=== PATIENT | male | born 1965 | race Caucasian/White ===

== ENCOUNTER 2019-01-22 10:28 | Emergency (ER) | payer BC ==
[2019-01-22] MEDS ORDERED: Lidocaine 1%* 5 ML VIAL ONE (11:05)
--- NOTE | 2019-01-22 11:10 | ED ---
Lower Extremity - HPI Summary HPI Summary: This patient is a 53 year old M presenting to ED with a chief complaint of right knee pain with redness and swelling since a couple weeks ago. Patient describes the pain as increasing this weekend as well as at work yesterday. Patient rates the pain 8/10 in severity. He has lesions on his knee but denies fever. Patient saw PCP today and was subsequently sent to ED for further evaluation. Three years ago, patient was seen at [facility] and later evaluated by Dr. Li who recommended a knee replacement when he turned a little older. PMHx of HTN, arthrosis, and osteoarthritis. He has had surgery for bone spurs in both shoulders and a torn meniscus in the right knee. He smokes but does not use alcohol or drugs. - History of Current Complaint Chief Complaint: EDExtremityLower Stated Complaint: RIGHT KNEE SWOLLEN PER PT/DR OFFICED CALLED Time Seen by Provider: 01/22/19 10:42 Hx Obtained From: Patient Mechanism Of Injury: Other - no CECILIA Onset of Pain: Prior to Arrival - a couple of weeks Onset/Duration: Still Present Severity Initially: Severe Severity Currently: Severe Pain Intensity: 8 Pain Scale Used: 0-10 Numeric Timing: Lasting Weeks Location: Is Discrete @ - right knee Associated Signs And Symptoms: Positive: Swelling, Redness, Knee Pain. Negative : Fever Aggravating Factor(s): Ambulation Alleviating Factor(s): Nothing - Allergies/Home Medications Allergies/Adverse Reactions: Allergies Allergy/AdvReac Type Severity Reaction Status Date / Time No Known Allergies Allergy Verified 01/22/19 10:32 Home Medications: Home Medications Albuterol HFA INHALER* [Ventolin HFA Inhaler*] 2 puff INH Q4H PRN 01/22/19 [ History Confirmed 01/22/19] Clobetasol 0.05% OINT* 1 applic TOPICAL BID 01/22/19 [History Confirmed 01/22/19 ] Fluticasone/Salmeterol [Fluticasone-Salmeterol 232-14] 1 puff INH BID 01/22/19 [ History Confirmed 01/22/19] Urea 40 % TOPICAL BID 01/22/19 [History Confirmed 01/22/19] PMH/Surg Hx/FS Hx/Imm Hx Cardiovascular History: Reports: Hx Hypertension Sensory History: Denies: Hx Legally Blind, Hx Deafness Opthamlomology History: Denies: Hx Legally Blind EENT History: Denies: Hx Deafness - Surgical History Surgery Procedure, Year, and Place: surgery for bone spurs in both shoulders and a torn meniscus in the right knee Infectious Disease History: No Infectious Disease History: Denies: Traveled Outside the [place] in Last 30 Days - Family History Known Family History: Positive: Cardiac Disease - ID, Diabetes, Other - FMHx of cancer and arthritis - Social History Alcohol Use: None Hx Substance Use: No Hx Tobacco Use: Yes Review of Systems Negative: Fever Positive: Decreased ROM - Right knee, Edema - right knee , Other - Right knee pain Skin: Other - POSITIVE - REDNESS OF RIGHT KNEE All Other Systems Reviewed And Are Negative: Yes Physical Exam - Summary Physical Exam Summary: VITAL SIGNS: Reviewed. GENERAL: Patient is a well-developed and nourished male who is lying comfortable in the stretcher. Patient is not in any acute respiratory distress. HEAD AND FACE: No signs of trauma. No ecchymosis, hematomas or skull depressions. No sinus tenderness. EYES: PERRLA, EOMI x 2, No injected conjunctiva, no nystagmus. EARS: Hearing grossly intact. Ear canals and tympanic membranes are within normal limits. MOUTH: Oropharynx within normal limits. NECK: Supple, trachea is midline, no adenopathy, no JVD, no carotid bruit, no c- spine tenderness, neck with full ROM. CHEST: Symmetric, no tenderness at palpation LUNGS: Clear to auscultation bilaterally. No wheezing or crackles. CVS: Regular rate and rhythm, S1 and S2 present, no murmurs or gallops appreciated. ABDOMEN: Soft, non-tender. No signs of distention. No rebound no guarding, and no masses palpated. Bowel sounds are normal. EXTREMITIES: Right knee swollen, red, increased in temperature, decreased ROM secondary to pain. FROM in all other joints, no edema, no cyanosis or clubbing. NEURO: Alert and oriented x 3. No acute neurological deficits. Speech is normal and follows commands. SKIN: Dry and warm Triage Information Reviewed: Yes Vital Signs On Initial Exam: Initial Vitals Temp Pulse Resp BP Pulse Ox 98.3 F 90 17 138/110 98 01/22/19 10:30 01/22/19 10:30 04/30/19 10:30 01/22/19 10:30 01/22/19 10:30 Vital Signs Reviewed: Yes Procedures - Procedure Summary Procedure Summary: Arthrocentesis attempted at 1055, however no fluid returned. It was a dry tap. Used sterile technique, cleaned with iodine three times. US showed minimal amount of fluid. - Ultrasound No standard instances Ultrasound: normal - 1055, no fluid in right knee. Diagnostics - Vital Signs Vital Signs Temp Pulse Resp BP Pulse Ox 01/22/19 10:30 98.3 F 90 17 138/110 98 - Laboratory Result Diagrams: 01/22/19 11:05 01/22/19 12:19 Lab Statement: Any lab studies that have been ordered have been reviewed, and results considered in the medical decision making process. - Radiology Right Knee XR Radiology Interpretation Completed By: Radiologist Summary of Radiographic Findings: 1. ANTERIOR SOFT TISSUE SWELLING. 2. MILD TO MODERATE OSTEOARTHRITIC CHANGE. Dr. Hernandes has reviewed this radiology report. - Ultrasound No standard instances Ultrasound Interpretation Completed By: ED Physician Summary of Ultrasound Findings: Bedside US done by ED physician revealed minimal fluid in right knee. Re-Evaluation - Re-Evaluation First Eval Re-Evaluation Time: 10:55 Comment: Attempted an arthrocentesis at 1055, however no fluid returned. It was a dry tap. Second Eval Re-Evaluation Time: 13:09 Comment: Results discussed with patient. Patient will be discharged with plan to follow up with Dr. Li tomorrow. Patient understands and agrees with this plan. Lower Extremity Course/Dx - Course Assessment/Plan: This patient is a 53-year-old male who presents to the emergency department with chief complaining of right knee pain. The patient reports that he has history of osteoarthritis secondary to overuse. The patient has seen Dr. Li in the past. Today he reports that the pain is painful, swollen, with some erythema. Blood test results shows wbcs of 7.2, hemoglobin 14.5, hematocrit 42, it is 238. Lactic acid is 0.8 and uric acid is 5 and CRP is 20.41. X-ray of the knee impression: anterior soft tissue swelling. Mild to moderate osteoarthritic change. Using the ultrasound vital located applicator of fluids for arthrocentesis however there was and minimal amount of fluid to follow-up with ultrasound. I attempted to tap the small pocket that I found however there was a dry tap. Meantime we sent blood cultures and I gave the patient Zosyn 3.375 g. I believe that most of his symptoms have cellulitis of the knee more than a septic knee. The bowel sounds are stable and he does not have any fever. I discussed the case with Dr. Li and she agrees with management and recommends antibiotics and discharged home and Dr. Li will see the patient tomorrow morning in the office. I discussed my physical exam and findings with the patient as well as the plan and the patient agrees. The patient also was given Toradol for the pain. He will be discharged with a prescription for Keflex and Percocet for pain. - Diagnoses Differential Diagnosis/HQI/PQRI: Positive: Arthritis, Bursitis, Cellulitis, Infection, Sprain, Strain, Tendonitis Provider Diagnoses: Cellulitis of knee, right - Physician Notifications Discussed Care Of Patient With: Kindra Li Time Discussed With Above Provider: 12:10 Instructed by Provider To: Other - Dr. Li to evaluate tomorrow morning, Instructed to put on P/O antibiotics. Discharge - Sign-Out/Discharge Documenting (check all that apply): Patient Departure - Discharge Patient Received Moderate/Deep Sedation with Procedure: No - Discharge Plan Condition: Stable Disposition: HOME Prescriptions: Cephalexin CAP* [Keflex CAP*] 500 mg PO QID #40 cap oxyCODONE/Acetam5/325MG PREPAK [Percocet 5/325 TAB*] 0 tab PO Q6H PRN #12 tab MDD 4 PRN Reason: Pain Patient Education Materials: Cellulitis (ED) Referrals: Petros White [employer] [Primary Care Provider] - 3 Days Kindra Li MD [Medical Doctor] - 1 Day Additional Instructions: Follow up with your primary care provider in 3 days. Follow up with Dr. Li in 1 day. RETURN TO THE ER FOR WORSENING OR CHANGING SYMPTOMS. - Billing Disposition and Condition Condition: STABLE Disposition: Home - Attestation Statements Document Initiated by Scribe: Yes Documenting Scribe: Calvin Hawkins Provider For Whom Scribe is Documenting (Include Credential): Javi Hernandes MD Scribe Attestation: I, Calvin Skaggs and Dm Hawkins, scribed for Javi Hernandes MD on 01/22/19 at 2154. Scribe Documentation Reviewed: Yes Provider Attestation: The documentation as recorded by the scribe, Calvin Skaggs and Dm Hawkins accurately reflects the service I personally performed and the decisions made by me, Javi Hernandes MD Status of Scribe Document: Viewed
[2019-01-22 11:13] LABS: ABS Basophils 0 10^3/ul (0-0.2); ABS Eosinophils 0.3 10^3/ul (0-0.6); ABS Lymphocytes 1.1 10^3/ul (1.0-4.8); ABS Monocytes 0.6 10^3/ul (0-0.8); ABS Neutrophils 5.1 10^3/ul (1.5-7.7); ABS Nucleated RBC 0 10^3/ul; Eosinophil % 3.9 %; Hematocrit 42 % (36-46); Hemoglobin 14.5 g/dL (14.0-18.0); Lymphocyte % 15.6 %; Mean Corpuscular HGB Conc 35 g/dL (31-36); Mean Corpuscular Hemoglobin 31 pg (27-31); Mean Corpuscular Volume 89 fL (80-94); Mean Platelet Volume 6.6 fL (7.4-10.4); Nucleated Red Blood Cells % 0.1; Platelet Count 238 10^3/uL (150-450); Red Cell Distribution Width 14 % (10.5-15); White Blood Count 7.2 10^3/uL (3.5-10.8)
[2019-01-22 11:32] LABS: C Reactive Protein 28.41 mg/L (<8.01)
--- OUTSIDE RECORDS SUMMARY | 2019-01-22 12:04 | XMS REPORT | Continuity of Care Document ---
:1965 External Reference #:[id number] Author Name Janet Rizvi NP Address [address] [place] [address] Care Team Providers Name Role Phone LUISITO Corey Care Team Information Sales Solutions Associate Unavailable Payers Date Identification Numbers Payment Provider Subscriber Effective: Policy Number: [id number] [facility] Vinicio Wolfe 2009 Expires: 2010 Group Name: [employer] [place] [address] [address] PayID: [id number] MIGUEL Viramontes [id number] Effective: 2010 Policy Number: [id number] [facility] Vinicio Wolfe Expires: 2014 Group Name: [employer] [address] [address] PayID: [id number] MIGUEL Viramontes [id number] Effective: 2014 Policy Number: [id number] [facility] Vinicio Wolfe Expires: 2018 Group Name: [employer] [address] [address] PayID: [id number] MIGUEL Viramontes [id number] Effective: 2018 Policy Number: [id number] [facility] Vinicio Wolfe Group Name: [employer] [address] [address] PayID: [id number] MIGUEL Viramontes [id number] Advance Directives Description No Information Available Problems Active Problems Provider Date Atopic dermatitis Tyrell Sweet M.D. Onset: 01/25/2011 Bipolar I disorder Tyrell Sweet M.D. Onset: 01/25/2011 Tobacco user Tyrell Sweet M.D. Onset: 01/25/2011 Essential hypertension Tyrell Sweet M.D. Onset: 01/25/2011 Family History Date Family Member(s) Observation Comments Father Cancer, Prostate prostatectomy 2 years ago Father Hypertension Mother due to Cancer, Colon () - Age 45 Mother Ulcers stomach First Sister Depression Paternal Grandfather due to Auto Accident () Paternal Grandmother Diabetes Paternal Grandmother Alzheimer's Disease Paternal Grandmother CAD Maternal Grandfather due to Unknown () - in his Causes 70s Maternal Grandmother due to Unknown () - in her Causes 50s Social History Type Date Description Comments Sex Unknown Lives With Daughter Diet Healthy, Well Balanced sometimes an sinhala muffin for breakfast, no lunch, dinner is whatever he prepares, pork chops, vegetables, spaghetti, hot dogs, pizza. 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 used for migraine treatment Colchicine take 2 tablets by 16tabs M25.561 Janet Rizvi, 01/22/2019 0.6mg mouth today, then [facility] Tablets 1 tablet by mouth twice daily x 7 days. Fluticasone inhale 1 puff by 3units R05 Petros R. 12/31/2018 Propionate/Salmeterol mouth 2 times per Storm, [employer] [employer] day for breathing 232-14mcg/Act Aerosol Clobetasol Propionate apply small 60gm L30.9 Shawnti R. 12/27/2018 amount to both Storm, [employer] 0.05% Ointment hands twice daily Shwetha Lo 40 apply to hands 85gm L30.9 Shawnti R. 12/27/2018 40% Cream twice daily Storm, [employer]9 [facility] Acetonide amount to rash Storm, [employer] 0.5% Ointment three times a day until resolved Ventolin HFA inhale two puffs 8gm R05 Shawnti R. 12/15/2017 by mouth every 4 Storm, [employer] 108(90Base) mcg/Act hours as needed Aerosol for wheeze Fish Oil daily Shawnti R. 12/11/2012 1000mg Storm, [employer] Capsules DR Minocycline HCL 1 by mouth twice 60caps L71.8 Shawnti R. 11/05/2012 50mg daily for rosacea Storm, [employer] Capsules Glucosimine 1200MG Unknown Centrum Men Unknown Tablets History Medications Amoxicillin/Clavulanate 1 by mouth twice 20tabs L03.113 [facility] - Potassium a day for 10 Storm, [employer] 01/10/2019 875-125mg Tablets days for infection Advair HFA 2 puffs by mouth 36gm R05 Shawnti R. 12/27/2018 - 230-21mcg/Act Aerosol twice a day Storm, [employer] 12/31/2018 Augmentin 1 by mouth twice 20tabs J01.90 [facility] R. 09/28/2018 - 875-125mg Tablets a day for Storm, [employer] 10/28/2018 infection Omeprazole 1 by mouth every 30caps K29.00 Quinternti R. 09/28/2018 - 20mg Capsules DR day Storm, [employer] 12/27/2018 Qnasl 2 sprays each 8.700gm J30.9 Shawnti R. 12/15/2017 - 80mcg/Act Aerosol nostril daily Storm, [employer] 09/28/2018 Benzonatate 1 by mouth three 30caps R05 Shawnti R. 12/15/2017 - 200mg Capsules times a day for Storm, [employer] 09/28/2018 cough Urea apply thin layer 85gm L20.9 Shawnti R. 12/15/2017 - 40% Cream to feet before Storm, [employer] 12/27/2018 bed Chantix Starting Month Kwan per starter pack 60tabs Z72.0 [facility]itonwn[facility] R. 2017 - 0.5mg X instructions Storm, [employer] [employer] 09/28/2018 11 & 1 mg X 42 Tablets Amoxicillin/Clavulanate 1 tab by mouth 20tabs J01.90 Antonella 11/21/2017 - Potassium twice a day for Shortle, [facility] 12/15/2017 875-125mg Tablets 10 days Omeprazole 1 by mouth every 14caps R10.30 [facility] 05/31/2017 - 20mg Capsules DR travis Campo, 09/28/2018 Amoxicillin/Clavulanate 1 by mouth twice 20tabs J01.90 [facility] 2016 - Potassium a day for 10 [facility] 04/13/2017 875-125mg Tablets days for infection Seroquel take one tablet 30tabs F31.32 Shawnti R. 06/02/2016 - 50mg Tablets by mouth at [facility] 06/02/2016 bedtime Risperidone 1 PO QHS 30tabs F31.32 Shawnti R. 06/02/2016 - 0.5mg Tablets [facility] 04/03/2017 Clomipramine HCL 1 po QHS 30caps F52.32 Shawnti R. 04/01/2016 - 50mg Capsules [facility] 04/03/2017 Clomipramine HCL 1 po daily 30caps F52.32 Shawnti R. 03/14/2016 - 25mg Capsules before bed [facility] 04/01/2016 Viagra take 1/2 to 1 14tabs F52.32 Shawnti R. 03/14/2016 - 50mg Tablets tablet by mouth [facility] 04/03/2017 1/2 hour prior to sexual activity Chantix Starting Month one by mouth 60tabs L20.9 Shawnti R. 2014 - 0.5mg X twice a day, [facility] 02/23/2016 11 & 1 mg X 42 Tablets start per package directions Lipitor 1 by mouth every 30tabs 272.0 Shawnti R. 12/18/2014 - 20mg Tablets day for [facility] 02/23/2016 cholesterol Triamcinolone Acetonide apply small 45units L20.9 Shawnti R. 12/05/2014 - 0.5% amount to rash [facility] 11/21/2017 Ointment three times a day until resolved Lisinopril 1 by mouth every 30tabs 401.[address] [facility] 11/20/2014 - 10mg Tablets day [facility] 02/23/2016 Clobetasol Propionate apply sparingly 30gm 691.8 [facility] 11/01/2012 - 0.05% Cream to affected area [facility] 12/05/2014 bid for two weeks if needed Eucerin apply to face 1tub L20.[address] [facility] 11/01/2012 - Cream bid [facility] 09/03/2015 Minocycline HCL 1 po bid 20caps 695.[address] [facility] 10/29/2012 - 100mg Capsules [facility] 12/06/2012 Metronidazole apply a pea 45gm 695.[address] [facility] 10/29/2012 - 0.75% Cream sized amount to [facility] 11/05/2012 face qhs Crestor 1 po qhs for 30tabs 272.[address] [facility] 06/08/2012 - 20mg Tablets cholesterol [facility] 02/14/2014 Lovastatin 1 po daily for 90tabs 272.[address] [facility] 03/01/2012 - 40mg Tablets cholesterol [facility] 06/08/2012 Chantix take by mouth as 60tabs 305.1 [facility] 02/21/2012 - 0.5mg X 11 & 1 mg X Tablets directed [facility] 11/20/2014 Clobetasol Propionate apply sparingly 1tube [facility] 08/22/2011 - 0.05% to affected area [facility] 11/01/2012 Ointment bid for two weeks if needed [facility]ox[facility] 1 [facility] Table[facility] infection [facility] 02/21/2012 Lisinopril 1 po daily for 90tabs 401.9 [facility] . 07/22/2011 - 20mg Tablets blood pressure [facility] 11/20/2014 Lovastatin 1 po daily for 30tabs 272.[address] [facility] 07/01/2011 - 20mg Tablets high cholesterol [facility] 03/01/2012 Lisinopril/Hydrochlorothiaz 1 po daily for 30tabs 401.[address] [facility] 2010 - han blood pressure [facility] 07/22/2011 10-12.5mg Tablets Chantix 1 po bid for 60tabs [facility] 07/01/2011 - 1mg Tablets smoking [facility] 11/20/2014 cessation Chantix take by mouth as 1month [facility] 06/03/2011 - 0.5mg X 11 & 1 mg X Tablets directed [facility] 07/01/2011 Prednisone 1 po bid for 60tabs [facility] 05/21/2011 - 20mg Tablets rash [facility] 02/21/2012 Prednisone take 6 tabs by 42tabs [facility] 03/04/2011 - 10mg Tablets mouth today and [facility] 05/21/2011 tomorrow, decrease by one tab every other day then 10mg by mouth for two days, then stop Eucerin Plus Intensive apply to skin 2Bottles [facility] 03/03/2011 - Repair bid and prn [facility] 02/23/2016 2.5-10% Cream dryness Betamethasone Valerate apply small 2tubes L20.[address] [facility] 03/03/2011 - 0.1% amount to rash [facility] 02/23/2016 Ointment bid Hydroxyzine HCL 1 or 2 po qid 40tabs 782.[address] [facility] 01/25/2011 - 25mg Tablets prn itching [facility] 02/21/2012 Claritin 1 po daily for 90tabs 782.[address] [facility] 01/25/2011 - 10mg Tablets allergies [facility] 02/23/2016 Ofloxacin 10 gtts in ear 5ml Tyrell Sweet, 08/26/2009 - 0.3% Solution qd x 7 days M.D. 01/25/2011 Amoxicillin 1 po tid 30tabs Tyrell Sweet, 08/26/2009 - 500mg Tablets M.D. 11/24/2009 Triamcinolone Acetonide apply small amt 30gm 691.8 [facility] R. 05/04/2009 - 0.5% Cream to affected area Christopher, [employer] 03/03/2011 three daily for dermatitis Zocor 1 po qd 30tabs Tyrell Sweet, 12/11/2006 - 40mg Tablets M.D. 01/25/2011 Zocor one qhs 30tabs Tyrell Sweet, 08/24/2006 - 20mg Tablets M.D. 12/11/2006 Lipitor 1/2 po qd 30tabs Tyrell Sweet, 09/30/2005 - 80mg Tablets M.D. 08/24/2006 Triamcinolone Acetonide apply to 60gm Tyrell Sweet, 05/19/2005 - 0.5% Cream affected area M.D. 01/25/2011 bid Lipitor 1 po qd 90tabs Tyrell Sweet, 12/17/2004 - 40mg Tablets M.D. 09/30/2005 Viagra 1/2-1 tab before 12tabs Tyrell Sweet, 12/17/2004 - 100mg Tablets intercourse M.D. 01/25/2011 Viagra 1 tab before 6tabs Tyrell Sweet, 12/03/2004 - 50mg Tablets intercourse M.D. 12/17/2004 Nasonex Nasal Inhaler 2 Sprays Each 17Gram Tyrell Sweet, 01/08/2004 - Inhaler Nostril Daily M.D. 02/07/2004 Lipitor one qd 30tabs Tyrell Sweet, 11/20/2003 - 20mg Tablets M.D. 12/17/2004 Celebrex one qd for 30caps Tyrell Sweet, 10/23/2003 - 200mg Capsules arthritis M.D. 2004 Depakote ER 2 qd Delia,Tomasz - 500mg Tablets MD rip 04/15/2004 Wellbutrin XL 2 qd Delia,Tomasz - 150mg Tablets MD rip 09/30/2005 Lexapro 1 po bid 14tabs Delia,Tomasz - 10mg Tablets MD rip 01/25/2011 Wellbutrin XL 1 po qd Delia,Tomasz - 300mg Tablets MD rip 03/31/2006 Depakote ER 1 1/2 qhs 30tabs Delia,Tomasz - 500mg Tablets MD rip 08/24/2006 Wellbutrin XL 1 PO qd 30tabs Delia,Tomasz - 300mg Tablets MD rip 01/25/2011 [place] Carbonate ER Delia,Tomasz - 300mg Tablets MD rip 05/31/2017 ER Mucinex take 1 tablet by Unknown - 600mg Tablets ER 12HR mouth every 12 01/10/2019 hours as needed for chest congestion Immunizations CPT Code Status Date Vaccine Lot # [id number] Given 06/07/2013 Influenza Vaccine-Preservative Free 3 Yrs And [id number] Above 02805 Given 06/07/2012 Tdap (Adacel) [id number] Given 01/08/2004 DT (Adult) [id number] Refused 01/22/2019 Influenza Virus Vaccine, Quadrivalent, 3 Yr > Quad , Preserv Free Vital Signs Date Vital Result Comment 01/22/2019 9:31am Weight 190.00 lb Weight 86.184 kg BP Systolic 140 mmHg BP Diastolic 88 mmHg Heart Rate 86 /min Body Temperature 97.1 F Respiratory Rate 16 /min 01/10/2019 2:15pm Weight 190.00 lb Weight 86.184 kg BP Systolic 122 mmHg BP Diastolic 84 mmHg Heart Rate 86 /min Body Temperature 98.1 F Respiratory Rate 16 /min O2 % BldC Oximetry 95 % 12/27/2018 3:13pm Weight 187.50 lb Weight 85.050 kg BP Systolic 140 mmHg BP Diastolic 82 mmHg Heart Rate 84 /min Body Temperature 98.2 F Respiratory Rate 18 /min Height 69.5 inches 5'9.50" BMI (Body Mass Index) 27.3 kg/m2 O2 % BldC Oximetry 95 % 09/28/2018 4:33pm Weight 191.00 lb Weight 86.638 kg BP Systolic 128 mmHg BP Diastolic 84 mmHg Heart Rate 79 /min Body Temperature 98.7 F Respiratory Rate 79 /min O2 % BldC Oximetry 79 % 12/15/2017 4:25pm Weight 174.00 lb Weight 78.926 kg BP Systolic 118 mmHg BP Diastolic 78 mmHg Heart Rate 87 /min Body Temperature 97.5 F Respiratory Rate 18 /min Height 70.5 inches 5'10.50" BMI (Body Mass Index) 24.6 kg/m2 O2 % BldC Oximetry 97 % 11/21/2017 1:32pm Weight 176.00 lb Weight 79.834 kg BP Systolic 140 mmHg BP Diastolic 90 mmHg Heart Rate 80 /min Body Temperature 98.4 F Respiratory Rate 16 /min O2 % BldC Oximetry 97 % 05/31/2017 10:57am Weight 166.00 lb Weight 75.298 kg BP Systolic 140 mmHg BP Diastolic 100 mmHg Heart Rate 92 /min Body Temperature 96.9 F Respiratory Rate 14 /min 04/06/2017 4:05pm Weight 174.00 lb Weight 78.926 kg BP Systolic 140 mmHg BP Diastolic 90 mmHg Heart Rate 82 /min Body Temperature 98.0 F Respiratory Rate 14 /min 04/03/2017 4:09pm Weight 173.00 lb Weight 78.473 kg BP Systolic 148 mmHg BP Diastolic 100 mmHg Heart Rate 68 /min Body Temperature 97.9 F Respiratory Rate 16 /min O2 % BldC Oximetry 99 % 06/16/2016 4:34pm Weight 168.00 lb Weight 76.205 kg BP Systolic 166 mmHg BP Diastolic 104 mmHg Heart Rate 99 /min Body Temperature 98.8 F Respiratory Rate 20 /min O2 % BldC Oximetry 99 % 06/02/2016 11:58am Weight 170.00 lb Weight 77.112 kg BP Systolic 148 mmHg BP Diastolic 98 mmHg Heart Rate 112 /min Body Temperature 99.0 F Respiratory Rate 16 /min 05/13/2016 4:44pm Weight 165.00 lb Weight 74.844 kg BP Systolic 160 mmHg BP Diastolic 100 mmHg Heart Rate 96 /min 04/01/2016 4:43pm Weight 156.00 lb Weight 70.762 kg BP Systolic 141 mmHg BP Diastolic 83 mmHg Heart Rate 110 /min 03/14/2016 4:26pm Weight 156.00 lb Weight 70.762 kg BP Systolic 120 mmHg BP Diastolic 78 mmHg Heart Rate 98 /min Body Temperature 98.7 F 02/23/2016 3:13pm Weight 156.00 lb Weight 70.762 kg BP Systolic 120 mmHg BP Diastolic 95 mmHg Heart Rate 91 /min Height 69.25 inches 5'9.25" BMI (Body Mass Index) 22.9 kg/m2 09/03/2015 4:51pm Weight 173.00 lb Weight 78.473 kg BP Systolic 130 mmHg BP Diastolic 80 mmHg Heart Rate 91 /min Body Temperature 99.3 F 02/19/2015 4:42pm Weight 200.00 lb Weight 90.720 kg BP Systolic 120 mmHg BP Diastolic 80 mmHg Heart Rate 92 /min 12/18/2014 4:31pm Weight 205.00 lb Weight 92.988 kg BP Systolic 120 mmHg BP Diastolic 80 mmHg Heart Rate 80 /min 11/20/2014 4:33pm Weight 203.00 lb Weight 92.081 kg BP Systolic 100 mmHg BP Diastolic 70 mmHg Heart Rate 92 /min 05/19/2014 4:35pm Weight 201.00 lb Weight 91.174 kg BP Systolic 115 mmHg BP Diastolic 78 mmHg Heart Rate 104 /min Body Temperature 98.3 F 02/14/2014 4:23pm Weight 201.00 lb Weight 91.174 kg BP Systolic 120 mmHg BP Diastolic 70 mmHg Heart Rate 60 /min 02/04/2014 4:44pm Weight 201.00 lb Weight 91.174 kg BP Systolic 102 mmHg BP Diastolic 68 mmHg Heart Rate 92 /min Body Temperature 98.6 F Height 70.5 inches 5'10.50" BMI (Body Mass Index) 28.4 kg/m2 06/07/2013 4:38pm Weight 209.00 lb Weight 94.802 kg BP Systolic 110 mmHg BP Diastolic 68 mmHg Heart Rate 76 /min 12/06/2012 4:39pm Weight 213.00 lb Weight 96.617 kg BP Systolic 116 mmHg BP Diastolic 84 mmHg Heart Rate 92 /min Body Temperature 98.1 F 11/05/2012 4:30pm Weight 209.00 lb Weight 94.802 kg BP Systolic 108 mmHg BP Diastolic 80 mmHg Heart Rate 92 /min 11/01/2012 10:32am BP Systolic 122 mmHg BP Diastolic 74 mmHg Heart Rate 80 /min Body Temperature 98.0 F 10/29/2012 3:50pm Weight 210.00 lb Weight 95.256 kg BP Systolic 140 mmHg BP Diastolic 100 mmHg Heart Rate 92 /min Body Temperature 98.8 F 06/07/2012 4:38pm Weight 203.00 lb Weight 92.081 kg BP Systolic 132 mmHg BP Diastolic 72 mmHg Heart Rate 108 /min 02/21/2012 4:19pm Weight 191.00 lb Weight 86.638 kg BP Systolic 140 mmHg BP Diastolic 88 mmHg Heart Rate 68 /min Body Temperature 98.5 F 08/22/2011 4:28pm Weight 190.00 lb Weight 86.184 kg BP Systolic 110 mmHg BP Diastolic 80 mmHg Heart Rate 96 /min Last Menstrual Period 0 O2 % BldC Oximetry 96 % 07/22/2011 4:28pm Weight 189.00 lb Weight 85.730 kg BP Systolic 112 mmHg BP Diastolic 80 mmHg Heart Rate 100 /min 07/01/2011 4:04pm Weight 192.00 lb Weight 87.091 kg BP Systolic 160 mmHg BP Diastolic 100 mmHg Heart Rate 100 /min 06/14/2011 4:45pm Weight 194.00 lb Weight 87.998 kg BP Systolic 144 mmHg BP Diastolic 84 mmHg Heart Rate 104 /min Body Temperature 98.3 F 06/03/2011 9:04am Weight 190.00 lb Weight 86.184 kg BP Systolic 140 mmHg BP Diastolic 90 mmHg Heart Rate 84 /min Body Temperature 98.3 F 05/31/2011 9:37am Weight 188.00 lb Weight 85.277 kg BP Systolic 150 mmHg BP Diastolic 90 mmHg Heart Rate 88 /min 03/03/2011 11:29am Weight 186.00 lb Weight 84.370 kg BP Systolic 130 mmHg BP Diastolic 80 mmHg Heart Rate 80 /min Body Temperature 97.7 F 01/25/2011 11:19am Weight 187.00 lb Weight 84.823 kg BP Systolic 122 mmHg BP Diastolic 84 mmHg Heart Rate 88 /min Body Temperature 98.0 F 08/26/2009 3:42pm Weight 186.00 lb Weight 84.370 kg BP Systolic 160 mmHg BP Diastolic 88 mmHg Heart Rate 84 /min Body Temperature 97.1 F 05/04/2009 3:16pm Weight 185.00 lb Weight 83.916 kg BP Systolic 130 mmHg BP Diastolic 88 mmHg Heart Rate 76 /min 11/23/2006 10:34am Weight 179.00 lb Weight 81.194 kg BP Systolic 130 mmHg BP Diastolic 72 mmHg Heart Rate 68 /min 08/24/2006 10:36am Weight 185.00 lb Weight 83.916 kg BP Systolic 138 mmHg BP Diastolic 76 mmHg Heart Rate 72 /min 03/31/2006 11:06am Weight 178.00 lb Weight 80.741 kg BP Systolic 134 mmHg BP Diastolic 68 mmHg Heart Rate 74 /min 12/30/2005 10:56am Weight 179.00 lb Weight 81.194 kg BP Systolic 150 mmHg BP Diastolic 92 mmHg Heart Rate 84 /min Body Temperature 96.6 F 09/30/2005 11:29am Weight 170.00 lb Weight 77.112 kg BP Systolic 144 mmHg BP Diastolic 86 mmHg Heart Rate 80 /min 06/02/2005 10:23am Weight 164.00 lb Weight 74.390 kg BP Systolic 132 mmHg BP Diastolic 76 mmHg Heart Rate 80 /min 05/19/2005 11:44am Weight 165.00 lb Weight 74.844 kg BP Systolic 120 mmHg BP Diastolic 78 mmHg Body Temperature 98.3 F 03/24/2005 10:11am Weight 166.00 lb Weight 75.298 kg BP Systolic 144 mmHg BP Diastolic 72 mmHg Heart Rate 68 /min 12/17/2004 1:08pm Weight 159.50 lb Weight 72.349 kg BP Systolic 112 mmHg BP Diastolic 68 mmHg Heart Rate 84 /min 2004 9:40am Weight 168.00 lb Weight 76.205 kg BP Systolic 114 mmHg BP Diastolic 68 mmHg 05/27/2004 10:15am Weight 183.00 lb Weight 83.009 kg BP Systolic 138 mmHg BP Diastolic 92 mmHg Body Temperature 97.3 F 04/15/2004 9:58am Weight 180.00 lb Weight 81.648 kg BP Systolic 140 mmHg BP Diastolic 96 mmHg 01/08/2004 10:59am Weight 187.00 lb Weight 84.823 kg BP Systolic 149 mmHg BP Diastolic 92 mmHg 11/20/2003 9:59am Weight 187.00 lb Weight 84.823 kg BP Systolic 120 mmHg BP Diastolic 80 mmHg 10/23/2003 8:45am Weight 186.00 lb Weight 84.370 kg BP Systolic 120 mmHg BP Diastolic 80 mmHg Heart Rate 60 /min Respiratory Rate 18 /min Height 70.50 inches BMI (Body Mass Index) 26.3 kg/m2 Results Test Date Facility Test Result H/L Range Note Laboratory test 01/22/2019 [facility] Erythrocyte Sed <pending> finding [phone] Rate C Reactive Protein <pending> Uric Acid <pending> Order 12/27/2018 In Office Nebulizer <pending> Treatment Comp Metabolic 02/23/2016 [facility] Sodium 138 mmol/ L N 133-145 Panel [phone] Potassium 3.8 mmol/L N 3.5-5.0 Chloride 105 mmol/L N 101-111 Co2 Carbon Dioxide 27 mmol/L N 22-32 Anion Gap 6 mmol/L N 2-11 Glucose 89 mg/dL N 70-100 Blood Urea Nitrogen 8 mg/dL N 6-24 Creatinine 0.97 mg/dL N 0.67-1.17 BUN/Creatinine Ratio 8.2 N 8-20 Calcium 9.3 mg/dL N 8.6-10.3 Total Protein 7.1 g/dL N 6.4-8.9 Albumin 4.3 g/dL N 3.2-5.2 Globulin 2.8 g/dL N 2-4 Albumin/Globulin Ratio 1.5 N 1-3 Total Bilirubin 0.50 mg/dL N 0.2-1.0 Alkaline Phosphatase 95 U/L N 34-104 Alt 18 U/L N 7-52 Ast 22 U/L N 13-39 Egfr Non- 81.9 N >60 Egfr 105.4 N >60 1 Lipid Profile 02/23/2016 [facility] Triglycerides 202 mg/dL N 2 (Trig/Chol/HDL) [phone] Cholesterol 235 mg/dL N 3 HDL Cholesterol 32.1 mg/dL N 4 LDL Cholesterol 163 mg/dL N 5 Laboratory test 02/23/2016 [facility] TSH (Thyroid 1.60 ?IU/mL N 0.34-5.60 6 finding [phone] Stim Horm) CBC Auto Diff 02/23/2016 [facility] White Blood 7.8 10^3/uL N 3.5-10.8 [phone] Count Red Blood Count 4.64 10^6/uL N 4.0-5.4 Hemoglobin 14.8 g/dL N 14.0-18.0 Hematocrit 43 % N 42-52 Mean Corpuscular Volume 92 fL N 80-94 Mean Corpuscular Hemoglobin 32 pg High 27-31 Mean Corpuscular HGB Conc 35 g/dL N 31-36 Red Cell Distribution Width 14 % N 10.5-15 Platelet Count 246 10^3/uL N 150-450 Mean Platelet Volume 8 um3 N 7.4-10.4 Abs Neutrophils 5.6 10^3/uL N 1.5-7.7 Abs Lymphocytes 1.3 10^3/uL N 1.0-4.8 Abs Monocytes 0.7 10^3/uL N 0-0.8 Abs Eosinophils 0.2 10^3/uL N 0-0.6 Abs Basophils 0 10^3/uL N 0-0.2 Abs Nucleated RBC 0 10^3/uL N Granulocyte % 71.5 % N 38-83 Lymphocyte % 16.9 % Low 25-47 Monocyte % 9.0 % N 1-9 Eosinophil % 2.2 % N 0-6 Basophil % 0.4 % N 0-2 Nucleated Red Blood Cells % 0 N Statin 02/13/2015 [facility] Ast (Sgot) 46 U/L High 13-39 7 [phone] Alt (SGPT) 50 U/L N 7-52 8 Lipid Profile 02/13/2015 [facility] Triglycerides 123 mg/dL N 9 (Trig/Chol/HDL) [phone] Cholesterol 142 mg/dL N 10 HDL Cholesterol 30.5 mg/dL N 11 LDL Cholesterol 87 mg/dL N 12 Comp Metabolic Panel 11/20/2014 [facility] Sodium 134 mmol/L N 133-145 [phone] Potassium 4.1 mmol/L N 3.5-5.0 Chloride 99 mmol/L Low 101-111 Co2 Carbon Dioxide 26 mmol/L N 22-32 Anion Gap 9 mmol/L N 2-11 Glucose 73 mg/dL N 70-100 Blood Urea Nitrogen 20 mg/dL N 6-24 Creatinine 1.16 mg/dL N 0.67-1.17 BUN/Creatinine Ratio 17.2 N 8-20 Calcium 9.9 mg/dL N 8.6-10.3 Total Protein 7.2 g/dL N 6.4-8.9 Albumin 4.6 g/dL N 3.2-5.2 Globulin 2.6 g/dL N 2-4 Albumin/Globulin Ratio 1.8 N 1-3 Total Bilirubin 0.50 mg/dL N 0.2-1.0 Alkaline Phosphatase 86 U/L N 34-104 Alt 47 U/L N 7-52 Ast 36 U/L N 13-39 Egfr Non- 66.9 N >60 Egfr 86.1 N >60 13 Lipid Profile 11/20/2014 [facility] Triglycerides 366 mg/dL N 14 (Trig/Chol/HDL) [phone] Cholesterol 259 mg/dL N 15 HDL Cholesterol 32.3 mg/dL N 16 LDL Cholesterol 154 mg/dL N 17 Statin 05/19/2014 [facility] Ast 47 U/L High 13-39 [phone] Alt 36 U/L N 7-52 Lipid Profile 05/19/2014 [facility] Triglycerides 461 mg/dL N 18 (Trig/Chol/HDL) [phone] Cholesterol 215 mg/dL N 19 HDL Cholesterol 29.7 mg/dL N 20 LDL Cholesterol (SEE NOTE) mg/dL N 21 Laboratory test 02/04/2014 [facility] TSH (Thyroid 1.69 0.34-5.60 finding [phone] Stimulating Horm) IU/mL Lipid Profile 02/04/2014 [facility] Triglycerides 429 mg/dL 22 (Trig/Chol/HDL) [phone] Cholesterol 207 mg/dL 23 HDL Cholesterol 24.1 mg/dL 24 LDL Cholesterol (SEE NOTE) mg/dL 25 Comp Metabolic Panel 02/04/2014 [facility] Sodium 136 mmol/L 133-145 [phone] Potassium 3.8 mmol/L 3.7-5.6 Chloride 102 mmol/L 101-111 Co2 Carbon Dioxide 25 mmol/L 22-32 Anion Gap 9 mmol/L 2-11 Glucose 91 mg/dL 70-100 Blood Urea Nitrogen 16 mg/dL 6-24 Creatinine 1.16 mg/dL 0.67-1.17 BUN/Creatinine Ratio 13.8 8-20 Calcium 9.3 mg/dL 8.6-10.3 Total Protein 7.3 g/dL 6.4-8.9 Albumin 4.3 g/dL 3.2-5.2 Globulin 3.0 g/dL 2-4 Albumin/Globulin Ratio 1.4 1-3 Total Bilirubin 0.50 mg/dL 0.2-1.0 Alkaline Phosphatase 109 U/L High 34-104 Alt 48 U/L 7-52 Ast 30 U/L 13-39 Egfr Non- 67.2 >60 Egfr 86.4 >60 26 CBC Auto Diff 02/04/2014 [facility] White Blood 6.1 10^3/uL 4.8-10.8 [phone] Count Red Blood Count 4.16 10^6/uL 4.0-5.4 Hemoglobin 12.8 g/dL Low 14.0-18.0 Hematocrit 37 % Low 42-52 Mean Corpuscular Volume 88 fL 80-94 Mean Corpuscular Hemoglobin 31 pg 27-31 Mean Corpuscular HGB Conc 35 g/dL 31-36 Red Cell Distribution Width 14 % 10.5-15 Platelet Count 250 10^3/uL 150-450 Mean Platelet Volume 7 um3 Low 7.4-10.4 Abs Neutrophils 4.1 10^3/uL 1.5-7.7 Abs Lymphocytes 1.2 10^3/uL 1.0-4.8 Abs Monocytes 0.6 10^3/uL 0-0.8 Abs Eosinophils 0.2 10^3/uL 0-0.6 Abs Basophils 0 10^3/uL 0-0.2 Abs Nucleated RBC 0 10^3/uL Granulocyte % 66.8 % 38-83 Lymphocyte % 19.3 % Low 25-47 Monocyte % 9.9 % High 1-9 Eosinophil % 3.3 % 0-6 Basophil % 0.7 % 0-2 Nucleated Red Blood Cells % 0.1 Lipid Profile 06/07/2013 [facility] Triglycerides 579 mg/dL High 40-200 (Trig/Chol/HDL) [phone] Cholesterol 260 mg/dL High Less than 200 HDL Cholesterol 29 mg/dL Low 40-60 27 Cholesterol/HDL Ratio 9.0 Average High 1-4.44 LDL Cholesterol (SEE NOTE) Less Than 100 28 Laboratory test 06/07/2013 [facility] TSH (Thyroid 1.69 0.34-5.60 finding [phone] Stimulating miu/mL Horm) Comp Metabolic 06/07/2013 [facility] Sodium 139 mmol/ L 133-145 Panel [phone] Potassium 4.6 mmol/L 3.5-5.0 Chloride 106 mmol/L 101-111 Co2 Carbon Dioxide 28.0 mmol/L 22-32 Anion Gap 5.0 mmol/L 2-11 Glucose 73 mg/dL 70-100 Blood Urea Nitrogen 16 mg/dL 6-24 Creatinine 1.10 mg/dL 0.50-1.40 BUN/Creatinine Ratio 14.5 8-20 Calcium 9.6 mg/dL 8.1-9.9 Total Protein 6.3 g/dL 6.2-8.1 Albumin 4.2 g/dL 3.6-5.4 Globulin 2.1 g/dL 2-4 Albumin/Globulin Ratio 2.0 1-3 Total Bilirubin 0.7 mg/dL 0.4-1.5 Alkaline Phosphatase 89 U/L 30-110 Alt 54 U/L 14-54 Ast 41 U/L 12-42 Egfr Non- 71.8 >60 Egfr 92.3 >60 29 CBC No Diff 06/07/2013 [facility] White Blood 6.8 10^ 3/uL 4.8-10.8 [phone] Count Red Blood Count 4.47 10^6/uL 4.0-5.4 Hemoglobin 14.1 g/dL 14.0-18.0 Hematocrit 40 % Low 42-52 Mean Corpuscular Volume 90 fL 80-94 Mean Corpuscular Hemoglobin 32 pg High 27-31 Mean Corpuscular HGB Conc 35 g/dL 31-36 Red Cell Distribution Width 14 % 10.5-15 Platelet Count 229 10^3/uL 150-450 Mean Platelet Volume 8 um3 7.4-10.4 Basic Metabolic 12/06/2012 [facility] Sodium 138 mmol /L 133-145 Panel [phone] Potassium 4.0 mmol/L 3.5-5.0 Chloride 105 mmol/L 101-111 Co2 Carbon Dioxide 25.0 mmol/L 22-32 Anion Gap 8.0 mmol/L 2-11 Glucose 83 mg/dL 70-100 Blood Urea Nitrogen 14 mg/dL 6-24 Creatinine 1.00 mg/dL 0.50-1.40 BUN/Creatinine Ratio 14.0 8-20 Calcium 9.4 mg/dL 8.1-9.9 Egfr Non- 80.1 >60 Egfr 103.0 >60 30 Statin 12/06/2012 [facility] Ast 44 U/L High 12-42 [phone] Alt 61 U/L High 14-54 Lipid Profile 12/06/2012 [facility] Triglycerides 435 mg/dL High 40-200 (Trig/Chol/HDL) [phone] Cholesterol 198 mg/dL Less than 200 HDL Cholesterol 33 mg/dL Low 40-60 31 Cholesterol/HDL Ratio 6.0 Average High 1-4.44 LDL Cholesterol (SEE NOTE) mg/dL Less Than 100 32 HIV 1/2 AB 12/06/2012 [facility] HIV 1 2 Nonreactive Nonreactive 33 Evaluation [phone] Antibody Statin 07/19/2012 [facility] Ast 36 U/L 12-42 34 [phone] Alt 50 U/L 14-54 35 Lipid Profile 07/19/2012 [facility] Triglycerides 223 mg/dL High 40-200 (Trig/Chol/HDL) [phone] Cholesterol 195 mg/dL Less than 200 36 HDL Cholesterol 36 mg/dL Low 40-60 37 Cholesterol/HDL Ratio 5.4 AVERAGE High 1-4.44 LDL Cholesterol 114.4 mg/dL High Less Than 100 Lipid Profile 06/07/2012 [facility] Triglyceride 332 mg/dL High 40-200 (Trig/Chol/HDL) [phone] Cholesterol 231 mg/dL High Less Than 200 38 High Density Lipoprotein 32 mg/dL Low 40-60 39 Cholesterol/HDL Ratio 7.22 AVERAGE High 1-4.97 Low Density Lipoprotein 133 mg/dL High Less Than 100 40 Comp Metabolic Panel 06/07/2012 [facility] Sodium 137 mmol/L 135-145 [phone] Potassium 4.1 mmol/L 3.5-5.0 Chloride 104 mmol/L 101-111 Co2 (Carbon Dioxide) 24.0 mmol/L 22-32 Anion Gap 9.0 mmol/L 2-11 41 Glucose 80 mg/dL 70-100 BUN 15 mg/dL 6-24 Creatinine 1.2 mg/dL 0.50-1.40 One Over Creatinine 0.83 BUN/Creatinine Ratio 12.5 8-20 Calcium 9.6 mg/dL 8.1-9.9 Total Protein 6.9 GM/DL 6.2-8.1 Albumin 4.4 GM/DL 3.6-5.4 Globulin 2.5 GM/DL 2-4 Albumin/Globulin Ratio 1.8 1-3 Bilirubin Total 0.6 mg/dL 0.4-1.5 42 Alkaline Phosphatase 97 U/L 39-117 Alt (SGPT) 75 U/L High 17-63 Ast (Sgot) 43 U/L High 12-42 eGFR Non- 65.2 > 60 eGFR 83.8 > 60 43 CBC With Manual 02/21/2012 [facility] White Blood 6.9 CUMM 4.8-10.8 Diff [phone] Count Red Cell Count 4.20 CUMM Low 4.6-6.2 Hemoglobin 13.5 g/dL Low 14.0-18.0 Hematocrit 38 % Low 42-52 Mean Corpuscular Volume 91 um3 80-94 Mean Corpuscular Hemoglob 32 pg High 27-31 Mean Corpuscular HGB Cone 35 g/dL 32-36 Redcell Distribution WDTH 13 % 10.5-15 Platelet Count 224 CUMM 150-450 Mean Platelet Volume 8.2 um3 7.4-10.4 Absolute Neutrophil Count 4.5 1.5-7.7 Polysegmented Neutrophil 66 % 38-83 Lymphocyte 25 % 25-47 Monocyte 7 % 0-13 Eosinophil 2 % 0-6 Anisocytosis SLIGHT Hypochromasia SLIGHT Comp Metabolic Panel 02/21/2012 [facility] Sodium 136 mmol/L 135-145 [phone] Potassium 3.9 mmol/L 3.5-5.0 Chloride 103 mmol/L 101-111 Co2 (Carbon Dioxide) 26.0 mmol/L 22-32 Anion Gap 7.0 mmol/L 2-11 44 Glucose 87 mg/dL 70-100 BUN 13 mg/dL 6-24 Creatinine 1.2 mg/dL 0.50-1.40 One Over Creatinine 0.83 BUN/Creatinine Ratio 10.8 8-20 Calcium 9.3 mg/dL 8.1-9.9 Total Protein 6.6 GM/DL 6.2-8.1 Albumin 4.1 GM/DL 3.6-5.4 Globulin 2.5 GM/DL 2-4 Albumin/Globulin Ratio 1.6 1-3 Bilirubin Total 0.7 mg/dL 0.4-1.5 45 Alkaline Phosphatase 106 U/L 39-117 Alt (SGPT) 33 U/L 17-63 Ast (Sgot) 26 U/L 12-42 eGFR Non- 65.2 > 60 eGFR 83.8 > 60 46 Lipid Profile 02/21/2012 [facility] Triglyceride 484 mg/dL High 40-200 (Trig/Chol/HDL) [phone] Cholesterol 256 mg/dL High Less Than 200 47 High Density Lipoprotein 28 mg/dL Low 40-60 48 Cholesterol/HDL Ratio 9.14 AVERAGE High 1-4.97 Low Density Lipoprotein (SEE NOTE) mg/dL Less Than 100 49 Laboratory test 02/21/2012 [facility] TSH 1.20 MIU/ ML 0.34-5.60 finding [phone] LDL Direct 123 mg/dL High Less Than 100 50 Basic Metabolic 07/25/2011 [facility] Sodium 133 mmol /L Low 135-145 Panel [phone] Potassium 3.8 mmol/L 3.5-5.0 Chloride 100 mmol/L Low 101-111 Co2 (Carbon Dioxide) 23.0 mmol/L 22-32 Anion Gap 10.0 mmol/L 2-11 51 Glucose 115 mg/dL High 70-100 BUN 15 mg/dL 6-24 Creatinine 1.0 mg/dL 0.50-1.40 One Over Creatinine 1.00 BUN/Creatinine Ratio 15.0 8-20 Calcium 9.3 mg/dL 8.1-9.9 eGFR Non- 80.8 > 60 eGFR 103.9 > 60 52 CBC No Diff 06/22/2011 [facility] White Blood 5.8 CUMM 4.8-10.8 [phone] Count Red Cell Count 4.50 CUMM Low 4.6-6.2 Hemoglobin 14.2 g/dL 14.0-18.0 Hematocrit 41 % Low 42-52 Mean Corpuscular Volume 92 um3 80-94 Mean Corpuscular Hemoglob 32 pg High 27-31 Mean Corpuscular HGB Cone 35 g/dL 32-36 Redcell Distribution WDTH 15 % 10.5-15 Platelet Count 209 CUMM 150-450 Mean Platelet Volume 7.8 um3 7.4-10.4 Laboratory test 06/22/2011 [facility] Triglyceride 205 mg/dL High 40-200 finding [phone] Cholesterol 279 mg/dL High Less Than 200 53 Comp Metabolic Panel 06/22/2011 [facility] Sodium 136 mmol/L 135-145 [phone] Potassium 3.8 mmol/L 3.5-5.0 Chloride 105 mmol/L 101-111 Co2 (Carbon Dioxide) 26.0 mmol/L 22-32 Anion Gap 5.0 mmol/L 2-11 54 Glucose 111 mg/dL High 70-100 BUN 10 mg/dL 6-24 Creatinine 0.9 mg/dL 0.50-1.40 One Over Creatinine 1.11 BUN/Creatinine Ratio 11.1 8-20 Calcium 9.3 mg/dL 8.1-9.9 Total Protein 5.8 GM/DL Low 6.2-8.1 Albumin 3.7 GM/DL 3.6-5.4 Globulin 2.1 GM/DL 2-4 Albumin/Globulin Ratio 1.8 1-3 Bilirubin Total 0.7 mg/dL 0.4-1.5 55 Alkaline Phosphatase 95 U/L 39-117 Alt (SGPT) 29 U/L 17-63 Ast (Sgot) 23 U/L 12-42 eGFR Non- 91.3 > 60 eGFR 117.4 > 60 56 Erythrocyte Sed 12/05/2008 [facility] Erythrocyte Sed 23 MM/HR High 0-15 Rate Stat [phone] Rate CBC With Manual 12/05/2008 [facility] White Blood 11.7 CUMM High 4.8-10.8 Diff Stat [phone] Count Red Cell Count 4.56 CUMM Low 4.6-6.2 Hemoglobin 14.1 g/dL 14.0-18.0 Hematocrit 41 % Low 42-52 Mean Corpuscular Volume 90 um3 80-94 Mean Corpuscular Hemoglob 31 pg 27-31 Mean Corpuscular HGB Cone 34 g/dL 32-36 Redcell Distribution WDTH 13 % 10.5-15 Platelet Count 231 CUMM 150-450 Mean Platelet Volume 7.0 um3 Low 7.4-10.4 Polysegmented Neutrophil 72 % 38-83 Band Neutrophil 1 % 0-8 Lymphocyte 17 % Low 25-47 Monocyte 4 % 0-13 Eosenophil 4 % 0-6 Atypical Lymph 2 % 0-6 Absolute Neutrophil Count 8.5 Anisocytosis SLIGHT Polychromasia SLIGHT Laboratory test 12/05/2008 [facility] C Reactive 2.2 mg/dL High Less Than finding [phone] Protein 0.5 CMP Stat 12/05/2008 [facility] Sodium 138 mmol/L 135-145 [phone] Potassium 3.9 mmol/L 3.5-5.0 Chloride 104 mmol/L 101-111 Co2 (Carbon Dioxide) 26.0 mmol/L 22-32 Anion Gap 8.0 mmol/L 2-11 57 Glucose 103 mg/dL High 70-100 58 BUN 8 mg/dL 6-24 Creatinine 0.90 mg/dL 0.50-1.40 One Over Creatinine 1.10 BUN/Creatinine Ratio 8.9 8-20 Calcium 9.4 mg/dL 8.1-9.9 59 Total Protein 6.7 GM/DL 6.2-8.1 Albumin 3.9 GM/DL 3.6-5.4 Globulin 2.8 GM/DL 2-4 Albumin/Globulin Ratio 1.4 1-3 Bilirubin Total 0.7 mg/dL 0.4-1.5 Alkaline Phosphatase 106 U/L 39-117 Alt (SGPT) 21 U/L 17-63 Ast (Sgot) 25 U/L 12-42 Statin 11/30/2006 [facility] Ast (Sgot) 25 U/L 12- 42 [phone] Alt (SGPT) 25 U/L 17-63 Lipid Profile 11/30/2006 [facility] Cholesterol/HDL 6.61 High 1-4.97 (Trig/Chol/HDL) [phone] Ratio AVERAGE Cholesterol 218 mg/dL High Less Than 200 60 Triglyceride 113 mg/dL 40-200 High Density Lipoprotein 33 mg/dL Low 40-60 61 Low Density Lipoprotein 162 mg/dL High Less Than 100 62 Lipid Profile 04/06/2006 [facility] Cholesterol, Total 165 mg/dL 120-200 63 [phone] HDL Cholesterol 28 mg/dL Low 40-60 LDL Cholesterol, Calc. 102 mg/dL AB 64 Triglycerides 177 mg/dL AB 65 LDL/HDL Cholesterol 3.6 66 Chol/HDL Cholesterol 5.9 AB 67 Laboratory 04/06/2006 [facility] TSH (Thyrotropin) 1.510 0.350-5.500 test finding [phone] uIU/ml Basic 04/06/2006 [facility] Glucose 90 mg/dL 70-100 Metabolic [phone] Panel BUN 9 mg/dL 5-21 Creatinine, Serum 1.1 mg/dL 0.6-1.5 Sodium 138 mmol/L 136-146 Potassium 4.1 mmol/L 3.5-5.3 Chloride 107 mmol/L 98-110 Carbon Dioxide 26 mmol/L 20-32 Calcium 9.3 mg/dL 8.4-10.4 Hepatic (Liver) 04/06/2006 [facility] Albumin 4.2 g/dL 3.5-4.7 Panel [phone] Protein, Total 6.6 g/dL 6.4-8.2 Alkaline Phosphatase 106 U/L 10-118 Sgot (Ast) 28 U/L 3-30 SGPT (Alt) 25 U/L 7-40 Bilirubin, Total 0.30 mg/dL 0.30-1.20 Bilirubin, Direct 0.10 mg/dL 0.00-0.40 Bilirubin, Indirect 0.20 mg/dL 0.10-1.10 Laboratory test 04/06/2006 [facility] Valproic Acid 46.4 ug /ml Low 50.0-100.0 finding [phone] GFR (Calculated) >60 68 Urinalysis Stat 03/13/2006 [facility] Ua Color YELLOW [phone] Appearance-Urine CLEAR Bilirubin-Ur NEGATIVE Negative Blood-Urine NEGATIVE Negative Esterase-Urine NEGATIVE Negative Glucose-Urine NEGATIVE Negative Ketones-Urine NEGATIVE Negative Nitrite NEGATIVE Negative PH-Urine 8.0 5-9 Protein-Urine NEGATIVE Negative [id number] NEGATIVE Negative Specific [place]-Ur 1.008 Low 1.010-1.030 CMP Stat 03/13/2006 [facility] One Over Creatinine 1.11 [phone] Anion Gap 7.0 mmol/L 2-11 69 Albumin/Globulin Ratio 1.4 1-3 Albumin 3.9 GM/DL 3.6-5.4 Alkaline Phosphatase 94 U/L 39-117 Alt (SGPT) 23 U/L 17-63 Ast (Sgot) 29 U/L 12-42 BUN 6 mg/dL 6-24 Calcium 9.2 mg/dL 8.7-10.2 Chloride 100 mmol/L Low 101-111 Co2 (Carbon Dioxide) 30.0 mmol/L 22-32 Globulin 2.8 GM/DL 2-4 Glucose 97 mg/dL 70-105 Potassium 3.9 mmol/L 3.5-5.0 Sodium 137 mmol/L 135-145 Bilirubin Total 0.8 mg/dL 0.4-1.5 Total Protein 6.7 GM/DL 6.2-8.1 BUN/Creatinine Ratio 6.7 Low 8-20 Creatinine 0.9 mg/dL 0.5-1.4 Urine Culture And 03/13/2006 [facility] Urine Culture NG 70 Sensitivites [phone] Sensitivi Statin 12/23/2005 [facility] Ast (Sgot) 31 U/L 12- 42 [phone] Alt (SGPT) 30 U/L 17-63 Lipid Profile 12/23/2005 [facility] Cholesterol/HDL 7.06 High 1-4.97 (Trig/Chol/HDL) [phone] Ratio AVERAGE Cholesterol 219 mg/dL High Less Than 200 71 Triglyceride 136 mg/dL 40-200 High Density Lipoprotein 31 mg/dL Low 40-60 72 Low Density Lipoprotein 161 mg/dL High Less Than 100 73 Lipid Profile 03/21/2005 [facility] Cholesterol/HDL 5.18 High 1-4.97 (Trig/Chol/HDL) [phone] Ratio AVERAGE Cholesterol 176 mg/dL Less Than 200 74 Triglyceride 94 mg/dL 40-200 High Density Lipoprotein 34 mg/dL Low 40-60 75 Low Density Lipoprotein 123 mg/dL High Less Than 100 76 Statin 03/21/2005 [facility] Ast (Sgot) 22 U/L 12- 42 [phone] Alt (SGPT) 19 U/L 17-63 Laboratory test 08/31/2004 [facility] RIGHT KNEE finding ([phone] - Report Lipid Profile 08/18/2004 [facility] Cholesterol/HDL 8.33 AVERAGE High 1-4.97 (Trig/Chol/HDL) [phone] Ratio Cholesterol 275 mg/dL High Less Than 200 77 Triglyceride 154 mg/dL 40-200 High Density Lipoprotein 33 mg/dL Low 40-60 78 Low Density Lipoprotein 211 mg/dL High Less Than 100 79 Lipid Profile 04/08/2004 [facility] Cholesterol/HDL 5.90 High 1-4.97 (Trig/Chol/HDL) [phone] Ratio AVERAGE Cholesterol 171 mg/dL Less Than 200 80 Triglyceride 83 mg/dL 40-200 High Density Lipoprotein 29 mg/dL Low 40-60 81 Low Density Lipoprotein 125 mg/dL High Less Than 100 82 Statin 04/08/2004 [facility] Ast (Sgot) 27 U/L 12- 42 [phone] Alt (SGPT) 28 U/L 17-63 Urine DIP 10/23/2003 [facility] House [facility] Leukocytes NEG Neg ([phone])- - Urine Nitrites NEG Neg Urine pH 7 High 5-6 Total Protein, Urine NEG Neg Urine Glucose NORM Norm Urine Ketones NEG Neg Urobolinogen NORM Norm Urine Bilirubin NEG Neg Urine Blood NEG Neg Laboratory test 10/23/2003 [facility] TSH 0.98 MIU/ ML 0.34-5.60 finding [phone] Comp Metabolic 10/23/2003 [facility] Anion Gap 5.0 mmol/L 2-11 83 Panel [phone] Albumin/Globulin Ratio 1.5 1-3 Albumin 4.1 GM/DL 3.6-5.4 BUN 8 mg/dL 6-24 Calcium 9.5 mg/dL 8.7-10.2 Chloride 104 mmol/L 101-111 Co2 (Carbon Dioxide) 30.0 mmol/L 22-32 Creatinine 0.8 mg/dL 0.5-1.4 Globulin 2.8 GM/DL 2-4 Glucose 90 mg/dL 70-105 Potassium 4.7 mmol/L 3.5-5.0 Sodium 139 mmol/L 135-145 Total Protein 6.9 GM/DL 6.2-8.1 BUN/Creatinine Ratio 10.0 8-20 Alkaline Phosphatase 103 U/L 39-117 Alt (SGPT) 32 U/L 17-63 Ast (Sgot) 28 U/L 12-42 Bilirubin Total 0.7 mg/dL 0.4-1.5 Lipid Profile 10/23/2003 [facility] Cholesterol/HDL 8.75 High 1-4.97 (Trig/Chol/HDL) [phone] Ratio AVERAGE Cholesterol 280 mg/dL High Less Than 200 84 Triglyceride 180 mg/dL 40-200 High Density Lipoprotein 32 mg/dL Low 40-60 85 Low Density Lipoprotein 212 mg/dL High Less Than 100 86 1 Because ethnic data is not always readily available, this report includes an eGFR for both -Americans and non- Americans. The National Kidney Disease Education Program (NKDEP) does not endorse the use of the MDRD equation for patients that are not between the ages of 18 and 70, are , have extremes of body size, muscle mass, or nutritional status, or are non- or non-. According to the National Kidney Foundation, irrespective of diagnosis, the stage of the disease is based on the level of kidney function: Stage Description GFR(mL/min/1.73 m(2)) 1 Kidney damage with normal or decreased GFR 90 2 Kidney damage with mild decrease in GFR 60-89 3 Moderate decrease in GFR 30-59 4 Severe decrease in GFR 15-29 5 Kidney failure <15 (or dialysis) 2 Desirable <150 Borderline high 150-199 High 200-499 Very High >500 3 Desirable <200 Borderline high 200-239 High >239 4 Low <40 Desirable: 40-60 High: >60 5 Desirable: <100 mg/dL Near Optimal: 100-129 mg/dL Borderline High: 130-159 mg/dL High: 160-189 mg/dL Very High: >189 mg/dL 6 [id number] FASTING 12 HOUR 8 FASTING 12 HOUR 9 Desirable <150 Borderline high 150-199 High 200-499 Very High >500 10 Desirable <200 Borderline high 200-239 High >239 11 Low <40 Desirable: 40-60 High: >60 12 Desirable: <100 mg/dL Near Optimal: 100-129 mg/dL Borderline High: 130-159 mg/dL High: 160-189 mg/dL Very High: >189 mg/dL 13 Because ethnic data is not always readily available, this report includes an eGFR for both -Americans and non- Americans. The National Kidney Disease Education Program (NKDEP) does not endorse the use of the MDRD equation for patients that are not between the ages of 18 and 70, are , have extremes of body size, muscle mass, or nutritional status, or are non- or non-. According to the National Kidney Foundation, irrespective of diagnosis, the stage of the disease is based on the level of kidney function: Stage Description GFR(mL/min/1.73 m(2)) 1 Kidney damage with normal or decreased GFR 90 2 Kidney damage with mild decrease in GFR 60-89 3 Moderate decrease in GFR 30-59 4 Severe decrease in GFR 15-29 5 Kidney failure <15 (or dialysis) 14 Desirable <150 Borderline high 150-199 High 200-499 Very High >500 15 Desirable <200 Borderline high 200-239 High >239 16 Low <40 Desirable: 40-60 High: >60 17 Desirable <100 Near Optimal 100-129 Borderline high 130-159 High 160-189 Very High >189 18 Desirable <150 Borderline high 150-199 High 200-499 Very High >500 19 Desirable <200 Borderline high 200-239 High >239 20 Low <40 Desirable: 40-60 High: >60 21 Unable to calculate LDL as triglyceride is > 400 22 Desirable <150 Borderline high 150-199 High 200-499 Very High >500 23 Desirable <200 Borderline high 200-239 High >239 24 Low <40 Desirable: 40-60 High: >60 25 Unable to calculate LDL as triglyceride is > 400 26 Because ethnic data is not always readily available, this report includes an eGFR for both -Americans and non- Americans. The National Kidney Disease Education Program (NKDEP) does not endorse the use of the MDRD equation for patients that are not between the ages of 18 and 70, are , have extremes of body size, muscle mass, or nutritional status, or are non- or non-. According to the National Kidney Foundation, irrespective of diagnosis, the stage of the disease is based on the level of kidney function: Stage Description GFR(mL/min/1.73 m(2)) 1 Kidney damage with normal or decreased GFR 90 2 Kidney damage with mild decrease in GFR 60-89 3 Moderate decrease in GFR 30-59 4 Severe decrease in GFR 15-29 5 Kidney failure <15 (or dialysis) 27 HDL Interpretation: Undesirable: High Risk: Less than 40 mg/dL Desirable: Low Risk: Greater than 60 mg/dL 28 Unable to calculate LDL as triglyceride is > 400 29 Because ethnic data is not always readily available, this report includes an eGFR for both -Americans and non- Americans. The National Kidney Disease Education Program (NKDEP) does not endorse the use of the MDRD equation for patients that are not between the ages of 18 and 70, are , have extremes of body size, muscle mass, or nutritional status, or are non- or non-. According to the National Kidney Foundation, irrespective of diagnosis, the stage of the disease is based on the level of kidney function: Stage Description GFR(mL/min/1.73 m(2)) 1 Kidney damage with normal or decreased GFR 90 2 Kidney damage with mild decrease in GFR 60-89 3 Moderate decrease in GFR 30-59 4 Severe decrease in GFR 15-29 5 Kidney failure <15 (or dialysis) 30 Because ethnic data is not always readily available, this report includes an eGFR for both -Americans and non- Americans. The National Kidney Disease Education Program (NKDEP) does not endorse the use of the MDRD equation for patients that are not between the ages of 18 and 70, are , have extremes of body size, muscle mass, or nutritional status, or are non- or non-. According to the National Kidney Foundation, irrespective of diagnosis, the stage of the disease is based on the level of kidney function: Stage Description GFR(mL/min/1.73 m(2)) 1 Kidney damage with normal or decreased GFR 90 2 Kidney damage with mild decrease in GFR 60-89 3 Moderate decrease in GFR 30-59 4 Severe decrease in GFR 15-29 5 Kidney failure <15 (or dialysis) 31 HDL Interpretation: Undesirable: High Risk: Less than 40 MG/DL Desirable: Low Risk: Greater than 60 MG/DL 32 Unable to calculate LDL as triglyceride is > 400 33 It is recognized that currently available assays for the detection of antibodies to HIV-1 and/or HIV-2 may not detect all infected individuals. HIV antibodies may be undetectable in some stages of the infection and in some clinical conditions. The performance of this assay has not been established for populations of infants or children. Assayed by Chemiluminescence Microparticle Immunoassay on the Siemens Advia Centaur CP. Values obtained with different methods or kits cannot be used interchangeably.The diagnostic specificity of the ADVIA Centaur 1/O/2 Enhanced assay in the low risk population was 99.90% (6052/6058) with a 95% confidence interval of 99.78 to 99.96%. 34 FASTING 35 FASTING 36 Desirable: Less than 200 MG/DL Borderline-High Risk: 200-239 MG/DL High-Risk: 240 MG/DL and over 37 HDL Interpretation: Undesirable: High Risk: Less than 40 MG/DL Desirable: Low Risk: Greater than 60 MG/DL 38 CHOLESTEROL INTERPRETATION: Desirable: Less than 200 MG/DL Borderline-High Risk: 200-239 MG/DL High-Risk: 240 MG/DL and over 39 HDL INTERPRETATION: Undesirable: High Risk: Less than 40 MG/DL Desirable: Low Risk: Greater than 60 MG/DL 40 LDL INTERPRETATION: Low Risk Optimal Level: LDL Less than 100 MG/DL Near or Above Optimal: LDL 100-129 MG/DL Borderline High Risk: LDL 130-159 MG/DL High Risk: LDL 160-189 MG/DL Very High Risk: LDL Greater than 189 MG/DL 41 Anion gap measurement may be of limited value in the presence of any alkalosis, especially in a combined acid base disorder. . 42 A metabolite of Naproxen, O-desmethylnaproxen, has been shown to interfere with the [place]rass[place]-Rex method for measuring total bilirubin. Samples from patients who have taken Naproxen have shown spurious elevation in total bilirubin levels. 43 Because ethnic data is not always readily available, this report includes an eGFR for both -Americans and non- Americans. The National Kidney Disease Education Program (NKDEP) does not endorse the use of the MDRD equation for patients that are not between the ages of 18 and 70, are , have extremes of body size, muscle mass, or nutritional status, or are non- or non-. According to the National Kidney Foundation, irrespective of diagnosis, the stage of the disease is based on the level of kidney function: Stage Description GFR(mL/min/1.73 m(2)) 1 Kidney damage with normal or decreased GFR 90 2 Kidney damage with mild decrease in GFR 60-89 3 Moderate decrease in GFR 30-59 4 Severe decrease in GFR 15-29 5 Kidney failure <15 (or dialysis) 44 Anion gap measurement may be of limited value in the presence of any alkalosis, especially in a combined acid base disorder. . 45 A metabolite of Naproxen, O-desmethylnaproxen, has been shown to interfere with the [place] method for measuring total bilirubin. Samples from patients who have taken Naproxen have shown spurious elevation in total bilirubin levels. 46 Because ethnic data is not always readily available, this report includes an eGFR for both -Americans and non- Americans. The National Kidney Disease Education Program (NKDEP) does not endorse the use of the MDRD equation for patients that are not between the ages of 18 and 70, are , have extremes of body size, muscle mass, or nutritional status, or are non- or non-. According to the National Kidney Foundation, irrespective of diagnosis, the stage of the disease is based on the level of kidney function: Stage Description GFR(mL/min/1.73 m(2)) 1 Kidney damage with normal or decreased GFR 90 2 Kidney damage with mild decrease in GFR 60-89 3 Moderate decrease in GFR 30-59 4 Severe decrease in GFR 15-29 5 Kidney failure <15 (or dialysis) 47 CHOLESTEROL INTERPRETATION: Desirable: Less than 200 MG/DL Borderline-High Risk: 200-239 MG/DL High-Risk: 240 MG/DL and over 48 HDL INTERPRETATION: Undesirable: High Risk: Less than 40 MG/DL Desirable: Low Risk: Greater than 60 MG/DL 49 UNABLE TO CALCULATE LDL TRIGLYCERIDE IS > 400 50 LDL INTERPRETATION: Low Risk Optimal Level: LDL Less than 100 MG/DL Near or Above Optimal: LDL 100-129 MG/DL Borderline High Risk: LDL 130-159 MG/DL High Risk: LDL 160-189 MG/DL Very High Risk: LDL Greater than 189 MG/DL 51 Anion gap measurement may be of limited value in the presence of any alkalosis, especially in a combined acid base disorder. . 52 Because ethnic data is not always readily available, this report includes an eGFR for both -Americans and non- Americans. The National Kidney Disease Education Program (NKDEP) does not endorse the use of the MDRD equation for patients that are not between the ages of 18 and 70, are , have extremes of body size, muscle mass, or nutritional status, or are non- or non-. According to the National Kidney Foundation, irrespective of diagnosis, the stage of the disease is based on the level of kidney function: Stage Description GFR(mL/min/1.73 m(2)) 1 Kidney damage with normal or decreased GFR 90 2 Kidney damage with mild decrease in GFR 60-89 3 Moderate decrease in GFR 30-59 4 Severe decrease in GFR 15-29 5 Kidney failure <15 (or dialysis) 53 CHOLESTEROL INTERPRETATION: Desirable: Less than 200 MG/DL Borderline-High Risk: 200-239 MG/DL High-Risk: 240 MG/DL and over 54 Anion gap measurement may be of limited value in the presence of any alkalosis, especially in a combined acid base disorder. . 55 A metabolite of Naproxen, O-desmethylnaproxen, has been shown to interfere with the [place] method for measuring total bilirubin. Samples from patients who have taken Naproxen have shown spurious elevation in total bilirubin levels. 56 Because ethnic data is not always readily available, this report includes an eGFR for both -Americans and non- Americans. The National Kidney Disease Education Program (NKDEP) does not endorse the use of the MDRD equation for patients that are not between the ages of 18 and 70, are , have extremes of body size, muscle mass, or nutritional status, or are non- or non-. According to the National Kidney Foundation, irrespective of diagnosis, the stage of the disease is based on the level of kidney function: Stage Description GFR(mL/min/1.73 m(2)) 1 Kidney damage with normal or decreased GFR 90 2 Kidney damage with mild decrease in GFR 60-89 3 Moderate decrease in GFR 30-59 4 Severe decrease in GFR 15-29 5 Kidney failure <15 (or dialysis) 57 Anion gap measurement may be of limited value in the presence of any alkalosis, especially in a combined acid base disorder. . 58 Note change in reference range as of 05/15/08. The change was based on recommendations from the [place] [employer]. 59 Please note change in reference range effective 08 . 60 Classification: Borderline High . 61 Classification: Low . 62 CALCULATED LDL APPROXIMATES THE VALUE OF A DIRECT LDL MEASUREMENT. Classification: High . 63 Cholesterol Risk Levels (NIH) Recommended: under 200 mg/dl Borderline : 200-239 mg/dl High Risk : Above 240 mg/dl . 64 The National Cholesterol Education Program recommends the following ranges for LDL Cholesterol: Optimal under 100 mg/dl Near or above Optimal 100 - 129 mg/dl Borderline High 130 - 159 mg/dl High 160 - 189 mg/dl Very High above 190 mg/dl . 65 Triglyceride Risk Levels: Normal : <150 mg/dl Borderline : 150-199 mg/dl High : 200-499 mg/dl Very High : >500 mg/dl . 66 LDL/HDL Risk Ratio Levels MALE FEMALE 1/2 X Average 1.00 1.47 Average 3.55 3.22 2 X Average 6.25 5.03 3 X Average 7.99 6.14 . 67 CHOL/HDL Risk Ratio Levels MALE FEMALE 1/2 X Average 3.4 3.3 Average 5.0 4.4 2 X Average 9.5 7.0 3 X Average 24.0 11.0 . 68 mL/min/1.73m2 . Normal Function or Mild Renal Disease, if clinically at risk: >or=60 Moderately decreased: 30 - 59 Severely decreased: 15 - 29 Renal Failure: <15 . Please note that the MDRD equation requires an additional adjustment for -Americans (multiply the GFR result by 1.210). . Glomerular Filtration Rate (GFR) is estimated based on the MDRD equation, which assumes a steady state for creatinine (Kori Int Med 139/2 137-149, 2003), as recommended by the National Kidney Disease Education Program in conjunction with the National Institutes of Health and the National Kidney Foundation. . Clinical conditions in which it may be necessary to measure GFR by using clearance methods include extremes of age and body size, severe malnutrition or obesity, diseases of skeletal muscle, paraplegia or quadriplegia, vegetarian diet, rapidly changing kidney function, and calculation of the dose of potentially toxic drugs that are excreted by the kidneys. . 69 Anion gap measurement may be of limited value in the presence of any alkalosis, especially in a combined acid base disorder. . 70 FINAL: NO GROWTH DAY 2 (<1,000 CFU/mL) 71 Classification: Borderline High . 72 Classification: Low . 73 CALCULATED LDL APPROXIMATES THE VALUE OF A DIRECT LDL MEASUREMENT. Classification: High . 74 Classification: Desirable . 75 Classification: Low . 76 CALCULATED LDL APPROXIMATES THE VALUE OF A DIRECT LDL MEASUREMENT. Classification: Near or above optimal . 77 Classification: High . 78 Classification: Low . 79 CALCULATED LDL APPROXIMATES THE VALUE OF A DIRECT LDL MEASUREMENT. Classification: Very High . 80 Classification: Desirable . 81 Classification: Low . 82 CALCULATED LDL APPROXIMATES THE VALUE OF A DIRECT LDL MEASUREMENT. Classification: Near or above optimal . 83 Anion gap measurement may be of limited value in the presence of any alkalosis, especially in a combined acid base disorder. . 84 Classification: High . 85 Classification: Low . 86 CALCULATED LDL APPROXIMATES THE VALUE OF A DIRECT LDL MEASUREMENT. Classification: Very High . Procedures Date Code Description Status 12/27/2018 21079 Nebulizer Treatment Completed 04/03/2017 20215 EKG, at Least 12 Leads w/Interpretation and Report Completed 02/04/2014 10379 EKG, at Least 12 Leads w/Interpretation and Report Completed 02/04/2014 58459 EKG, at Least 12 Leads w/Interpretation and Report Completed 02/21/2012 34907 EKG, at Least 12 Leads w/Interpretation and Report Completed 03/31/2006 43582 EKG, at Least 12 Leads w/Interpretation and Report Completed 05/19/2005 28597 Aspiration/Injection Major Bursa Completed Encounters Type Date Location Provider Dx Diagnosis Office Visit 01/10/2019 Main Office Petros White J18.9 Pneumonia, 2:15p [facility] unspecified organism Office Visit 12/27/2018 Main Office Petros White, L03.113 Cellulitis of right 3:15p [facility] upper limb L03.114 Cellulitis of left upper limb R05 Cough L30.9 Dermatitis, unspecified J20.9 Acute bronchitis, unspecified Office Visit 09/28/2018 4:45p Main Office Petros Brar01.90 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, Storm, [facility] unspecified H66.91 Otitis media, unspecified, right ear K29.00 Acute gastritis without bleeding Office Visit 12/15/2017 4:30p Main Office OANH CoreyP-C R05 Cough J30.9 Allergic rhinitis, unspecified Z72.0 Tobacco use L20.9 Atopic dermatitis, unspecified Office Visit 11/21/2017 1:30p Main Office Antonella J01.90 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 , [place], [facility] unspecified Z72.0 Tobacco use Office Visit 05/31/2017 11:00a Main Office Maximus Campo, R10.30 Lower abdominal MD pain, unspecified Office Visit 04/06/2017 4:00p Main Office Petros White J01.90 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, [facility] unspecified Office Visit 04/03/2017 4:30p Main Office Maykel Corey01.90 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, [facility] unspecified R03.0 Elevated blood-pressure reading, w/o diagnosis of htn Office Visit 06/16/2016 4:30p Main Office Shawnti R. F31.32 Bipolar disorder, Storm, [facility] current episode depressed, moderate M54.31 Sciatica, right side N50.9 Disorder of male genital organs, unspecified Office Visit 06/02/2016 12:00p Main Office Shawnti R. F31.32 Bipolar disorder, Storm, [facility] current episode depressed, moderate Office Visit 05/13/2016 4:45p Main Office Shawnti R. 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 Z00.00 Encntr for general adult 3:15p Storm, [facility] medical exam w/o abnormal findings Office Visit 09/03/2015 Main Office Melitonwnti RJonathan L20.9 Atopic dermatitis, 4:45p Storm, [facility] unspecified Office Visit 02/19/2015 Main Office Shawnti R. 272.0 Hypercholesterolemia Pure 4:45p Storm, [facility] 401.9 Hypertension Unspec Office Visit 12/18/2014 4:30p Main Office Shawnti R. 401.9 Hypertension Unspec Storm, [facility] 272.0 Hypercholesterolemia Pure Office Visit 11/20/2014 Main Office Shawnti R. 272.0 Hypercholesterolemia Pure 4:30p Storm, [facility] 401.9 Hypertension Unspec 719.46 Pain Joint Lower Leg Office Visit 05/19/2014 Main Office Shawnti R. 272.0 Hypercholesterolemia Pure 4:30p Storm, [facility] 401.9 Hypertension Unspec Office Visit 02/14/2014 4:30p Main Office Melitonwntbassam RJonathan White, 691.8 Dermatitis Atopic & [facility] Related Conditions Other 272.0 Hypercholesterolemia Pure 285.9 Anemia Unspec Office Visit 02/04/2014 4:45p Main Office Shawnti R. Storm, 691.8 Dermatitis Atopic & [facility] Related Conditions Other 786.50 Pain Chest Unspec 401.9 Hypertension Unspec Office Visit 06/07/2013 4:30p Main Office Shawnti R. 401.9 Hypertension Unspec Storm, [facility] 272.0 Hypercholesterolemia Pure V04.81 Need For Prophylactic Vaccination & Inoculation/Influenza Office Visit 12/06/2012 4:30p Main Office Shawnti R. 401.9 Hypertension Unspec Storm, [facility] 272.0 Hypercholesterolemia Pure V73.99 Screening Examination Viral Disease Unspec Office Visit 11/05/2012 4:30p Main Office Shawnti R. Storm, [facility] 695.3 Rosacea 691.8 Dermatitis Atopic & Related Conditions Other Office Visit 11/01/2012 10:30a Main Office Shawnti R. Storm, [facility] 695.3 Rosacea 691.8 Dermatitis Atopic & Related Conditions Other Office Visit 10/29/2012 3:45p Main Office Shawnti R. 695.3 Rosacea Storm, [facility] Office Visit 06/07/2012 4:30p Main Office Shawnti R. 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 401.9 Hypertension Unspec Storm, [facility] 305.1 Tobacco Use Disorder 786.50 Pain Chest Unspec Office Visit 08/22/2011 4:15p Main Office Shawnti R. 401.9 Hypertension Unspec Storm, [facility] 381.4 Otitis Media Acute Or Chronic Nonsuppurative Office Visit 07/22/2011 Main Office Shawnti R. 401.9 Hypertension Unspec 4:30p Storm, [facility] Office Visit 07/01/2011 Main Office Shawnti R. 272.0 Hypercholesterolemia Pure 4:00p Storm, [facility] 401.9 Hypertension Unspec 305.1 Tobacco Use Disorder Office Visit 06/14/2011 4:45p Main Office Shawnti R. Storm, 691.8 Dermatitis Atopic & [facility] Related Conditions Other Office Visit 06/03/2011 9:00a Main Office Petros White, 691.8 Dermatitis Atopic & [facility] Related Conditions Other Office Visit 05/31/2011 9:15a Main Office Petros White, 691.8 Dermatitis Atopic & [facility] Related Conditions Other 608.89 Male Genital Organ Disorder Other Office Visit 03/03/2011 11:00a Main Office Petros RJonathan 691.8 Dermatitis Atopic & Storm, [facility] Related Conditions Other Office Visit 01/25/2011 11:00a Main Office Petros Osorio 782.1 Rash & Other Storm, [facility] Nonspec Skin Eruption Office Visit 08/26/2009 3:45p Main Office Tyrell Sweet M.D. 380.10 Otitis Externa Infective Unspec 691.8 Dermatitis Atopic & Related Conditions Other Office Visit 05/04/2009 Main Office Petros Osorio 691.8 Dermatitis Atopic & 3:15p Storm, [facility] Related Conditions Other Office Visit 11/23/2006 Main Office Tyrell Sweet, 272.0 Hypercholesterolemia Pure 10:30a M.D. 296.7 Bipolar I Disorder Current NOS Office Visit 08/24/2006 Main Office Tyrell Sweet 272.0 Hypercholesterolemia Pure 10:30a M.D. 305.1 Tobacco Use Disorder 296.7 Bipolar I Disorder Current NOS 302.72 Erectile Dysfunction Office Visit 03/31/2006 Main Office Tyrell Sweet 272.0 Hypercholesterolemia Pure 11:00a M.D. 401.9 Hypertension Unspec 305.1 Tobacco Use Disorder 296.7 Bipolar I Disorder Current NOS 719.41 Pain Joint Shoulder Region Office Visit 12/30/2005 Main Office Tyrell Sweet 272.0 Hypercholesterolemia Pure 11:00a M.D. 401.9 Hypertension Unspec 305.1 Tobacco Use Disorder 296.7 Bipolar I Disorder Current NOS Office Visit 09/30/2005 11:00a Main Office Tyrell Sweet M.D. 296.7 Bipolar I Disorder Current NOS 272.0 Hypercholesterolemia Pure 719.41 Pain Joint Shoulder Region 305.1 Tobacco Use Disorder Office Visit 06/02/2005 10:00a Main Office Tyrell Sweet M.D. 719.41 Pain Joint Shoulder Region 691.8 Dermatitis Atopic & Related Conditions Other 272.0 Hypercholesterolemia Pure Office Visit 05/19/2005 11:45a Main Office Tyrell Sweet M.D. 719.41 Pain Joint Shoulder Region 691.8 Dermatitis Atopic & Related Conditions Other Office Visit 03/24/2005 Main Office Tyrell Sweet 272.0 Hypercholesterolemia Pure 9:30a M.D. 296.7 Bipolar I Disorder Current NOS 305.1 Tobacco Use Disorder 302.72 Erectile Dysfunction Office Visit 12/17/2004 Main Office Tyrell Sweet 272.0 Hypercholesterolemia Pure 1:00p M.DJonathan 296.7 Bipolar I Disorder Current NOS 305.1 Tobacco Use Disorder 401.9 Hypertension Unspec 716.90 Arthropathy Unspec Site Unspec Office Visit 2004 Main Office Tyrell Sweet 272.0 Hypercholesterolemia Pure 9:30a M.DJonathan 719.46 Pain Joint Lower Leg 296.7 Bipolar I Disorder Current NOS Office Visit 05/27/2004 Main Office Tyrell Sweet 719.46 Pain Joint Lower Leg 9:45a M.D. Office Visit 04/15/2004 Main Office Tyrell Sweet 272.0 Hypercholesterolemia Pure 9:45a M.DJonathan 473.9 Sinusitis Chronic Unspec 296.7 Bipolar I Disorder Current NOS 305.1 Tobacco Use Disorder 401.9 Hypertension Unspec Office Visit 01/08/2004 11:00a Main Office Tyrell Sweet M.D. 296.7 Bipolar I Disorder Current NOS 272.0 Hypercholesterolemia Pure 473.9 Sinusitis Chronic Unspec Office Visit 11/20/2003 9:45a Main Office Tyrell Sweet M.D. 296.7 Bipolar I Disorder Current NOS 272.0 Hypercholesterolemia Pure Office Visit 10/23/2003 8:45a Main Office Tyrell Sweet M.D. V70.0 Examination General Medical Routine AT [facility] 311 Depressive Disorder Not Elsewhere Spec 716.90 Arthropathy Unspec Site Unspec V16.0 History Family Malignant Neoplasm Gastrointestinal Tract V16.42 Family History Malignant Neoplasm Prostate Plan of Treatment Future Appointment(s):04/23/2019 1:30 pm - LUISITO Corey at [facility]/22/2019 - Janet Rizvi NPM25.561 Pain in right kneeNew Medication: Tramadol HCL 50 mg - take one tablet by mouth four times a day as needed for pain; maximum daily dose=4. used for migraine treatmentColchicine 0.6 mg - take 2 tablets by mouth today, then 1 tablet by mouth twice daily x 7 days.Follow up: Refer to Ortho
--- OUTSIDE RECORDS SUMMARY | 2019-01-22 12:05 | XMS REPORT | Continuity of Care Document ---
:1965 External Reference #:[id number] Author Name LUISITO Corey Address [address] [place] [address] Care Team Providers Name Role Phone LUISITO Corey Care Team Information Bookkeeping Assistant Unavailable Payers Date Identification Numbers Payment Provider Subscriber Effective: Policy Number: [id number] [facility] Vinicio Wolfe 2009 Expires: 2010 Group Name: [employer] [employer] [place] [address] [address] PayID: [id number] MIGUEL Viramontes [id number] Effective: 2010 Policy Number: [id number] [facility] Vinicio Wolfe Expires: 2014 Group Name: [employer] [address] [address] PayID: [id number] MIGUEL Viramontes [id number] Effective: 2014 Policy Number: [id number] [facility] Vinicio Wolfe Expires: 2018 Group Name: [employer] [address] [address] PayID: [id number] MIGUEL Viramontes [id number] Effective: 2018 Policy Number: [id number] [facility] Vinicio Wolfe Group Name: [employer] [address] [address] PayID: [id number] MIGUEL Viramontes [id number] Advance Directives Description No Information Available Problems Date Description Provider Status Onset: 01/25/2011 Atopic dermatitis Tyrell Sweet M.D. Active Onset: 01/25/2011 Bipolar I disorder Tyrell Sweet M.D. Active Onset: 01/25/2011 Tobacco user Tyrell Sweet M.D. Active Onset: 01/25/2011 Essential hypertension Tyrell Sweet M.D. Active Family History Date Family Member(s) Observation Comments [...] Daughter Diet Healthy, Well Balanced sometimes an vietnamese muffin for breakfast, no lunch, dinner is whatever he prepares, pork chops, vegetables, spaghetti, hot dogs, pizza. 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 Tobacco Use Start: Unknown regularly smokes smokes over one pack cigarettes per day ETOH Use Currently consumes rare, once per month alcohol Recreational Drug Use Denies Drug Use Enjoy Exercising Enjoys exercising Guns in Home No Allergies, Adverse Reactions, Alerts Date Description Reaction Status Severity Comments 10/23/2003 Omnicef Active rash Medications Medication Date Status Form Strength Qnty SIG Indications Ordering Provider Clobetasol 12/27/ Active Ointment 0.05% 60gm apply small L30.9 Shawnti Propionate 2019 amount to Jo White, both hands [employer] twice daily Shwetha Lo 40 12/27/ Active Cream 40% 85gm apply to L30.9 Shawnti 2019 hands twice R. Storm, daily [employer] Amoxicillin/Cla 12/27/ Active Tablets 875-125mg 20tab 1 by mouth L03.113 Shawnti vulanate 2019 s twice a day Jo White Potassium for 10 days [employer] for infection Advair HFA 12/27/ Active Aerosol 230-21mcg 36gm 2 puffs by R05 Shawnti 2019 /Act mouth twice a R. Christopher, day [employer] Triamcinolone 12/15/ Active Ointment 0.5% 45uni apply small L20.9 Shawnti Acetonide 2018 ts amount to Jo White, rash three [employer] times a day until resolved Ventolin HFA 12/15/ Active Aerosol 108(90Bas 8gm inhale two R05 Shawnti 2018 e) puffs by Jo White, mcg/Act mouth every 4 [employer] hours as needed for wheeze Fish Oil 12/11/ Active Capsules 1000mg daily Petros 2012 DR Jo White, [employer] Minocycline HCL 11/05/ Active Capsules 50mg 60cap 1 by mouth L71.8 Petros 2012 s twice daily Jo White, for rosacea [employer] Centrum Men / Active Tablets Unknown 0000 Mucinex / Active Tablets 600mg take 1 tablet Unknown 0000 ER 12HR by mouth every 12 hours as needed for chest congestion Augmentin 09/28/ Hx Tablets 875-125mg 20tab 1 by mouth J01.90 Petros 2019 - s twice a day Jo White, 10/28/ for infection [employer] 2019 Omeprazole 09/28/ Hx Capsules 20mg 30cap 1 by mouth K29.00 Petros 2019 - DR adorno every day Jo White, 12/27/ [employer] 2019 Qnasl 12/15/ Hx Aerosol 80mcg/Act 8.700 2 sprays each J30.9 Petros 2018 - gm nostril daily Jo White, 09/28/ [employer] 2019 Benzonatate 12/15/ Hx Capsules 200mg 30cap 1 by mouth R05 Petros 2018 - s three times a Jo White, 09/28/ day for cough [employer] 2019 Urea 12/15/ Hx Cream 40% 85gm apply thin L20.9 Petros 2018 - layer to feet Jo White, 12/27/ before bed [employer] 2018 Amoxicillin/Cla 11/21/ Hx Tablets 875-125mg 20tab 1 tab by J01.90 Antonella ramon 2018 - s mouth twice a Shortle, Potassium 12/15/ day for 10 [employer]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 Chantix 11/21/ Hx Tablets 0.5mg X 60tab per starter Z72.0 Petros Starting Month 2017 - & 1 mg s pack Kwan Murrieta 09/28/ X 42 instructions [employer] 2019 Omeprazole 05/31/ Hx Capsules 20mg 14cap 1 by mouth R10.30 Maximus 2017 - s every day Alber 09/28/ , 2019 Amoxicillin/Cla 04/03/ Hx Tablets 875-125mg 20tab 1 by mouth J01.90 Shawnti vulanate 2017 - s twice a day Jo White Potassium 04/13/ for 10 days [facility]- 2016 for infection Seroquel 06/02/ Hx Tablets 50mg 30tab take one F31.32 Shawnti 2015 - s tablet by Jo White, 06/02/ mouth at [facility] 2016 bedtime Risperidone 06/02/ Hx Tablets 0.5mg 30tab 1 PO QHS F31.32 Shawnti 2016 - s Jo White, 04/03/ [facility]- 2016 Clomipramine 04/01/ Hx Capsules 50mg 30cap 1 po QHS F52.32 Shawnti HCL 2015 - s Jo White, 04/03/ [facility]- 2016 Clomipramine 03/14/ Hx Capsules 25mg 30cap 1 po daily F52.32 Shawnti HCL 2015 - s before bed Jo White 04/01/ [facility] 2015 Viagra 03/14/ Hx Tablets 50mg 14tab take 1/2 to 1 F52.32 Shawnti 2015 tablet by Jo White, 04/03/ mouth 1/2 [facility]- 2016 hour prior to sexual activity Chantix 09/03/ Hx Tablets 0.5mg X 60tab one by mouth L20.9 Shawnti Starting Month 2014 - & 1 mg s twice a day, Kwan Murrieta 02/22/ X 42 start per [facility]- 2016 package directions Lipitor 12/18/ Hx Tablets 20mg 30tab 1 by mouth 272.0 Shawnti 2014 - s every day for Jo White, 02/22/ cholesterol [facility]- 2016 Triamcinolone 12/05/ Hx Ointment 0.5% 45uni apply small L20.9 Shawn[facility] Acetonide 2014 - ts amount to Jo White, 11/21/ rash three [facility]- 2018 times a day until resolved Lisinopril 11/20/ Hx Tablets 10mg 30tab 1 by mouth 401.9 Shawnti 2014 - s every day Jo White, 02/22/ [facility] 2016 Clobetasol 11/01/ Hx Cream 0.05% 30gm apply 691.8 Shawn[facility] Propionate 2013 - sparingly to R. Christopher, 12/05/ affected area [facility] 2014 bid for two weeks if needed Eucerin 11/01/ Hx Cream 1tub apply to face L20.9 Shawnti 2012 - bid R. Christopher, 09/03/ [facility]- 2014 Minocycline HCL 10/29/ Hx Capsules 100mg 20cap 1 po bid 695.3 Shawnti 2012 - s R. Christopher, 12/06/ [facility]- 2013 Metronidazole 10/29/ Hx Cream 0.75% 45gm apply a pea 695.3 Shawnti 2013 - sized amount R. Christopher, 11/05/ to face qhs [facility]- 2012 Crestor 06/08/ Hx Tablets 20mg 30tab 1 po qhs for 272.0 Shawnti 2011 - s cholesterol R. Christopher, 02/14/ [facility]- 2013 Lovastatin 03/01/ Hx Tablets 40mg 90tab 1 po daily 272.0 Shawnti 2011 - s for R. Christopher, 06/08/ cholesterol [facility]- 2011 Chantix 02/20/ Hx Tablets 0.5mg X 60tab take by mouth 305.1 Shawnti 2011 - 11 & 1 mg s as directed RJonathan White, 11/20/ X [facility]- 2014 Clobetasol 08/22/ Hx Ointment 0.05% 1tube apply Shawnti Propionate 2010 - sparingly to Jo White, 11/01/ affected area [facility] 2012 bid for two weeks if needed Amoxicillin 08/22/ Hx Tablets 875mg 20tab 1 po bid for 381.4 Shawnti 2010 - s ear infection R. Christopher, 02/20/ [facility] 2011 Lisinopril 07/22/ Hx Tablets 20mg 90tab 1 po daily 401.9 Shawnti 2010 - s for blood R. Christopher, 11/20/ pressure [facility]- 2015 Lovastatin 07/01/ Hx Tablets 20mg 30tab 1 po daily 272.0 Shawnti 2010 - s for high R. Christopher, 03/01/ cholesterol [facility]- 2011 Lisinopril/Hydr 07/01/ Hx Tablets 10-12.5mg 30tab 1 po daily 401.9 Shawnti ochlorothiazide 2010 - s for blood R. Christopher, 07/22/ pressure [employer] 2010 Chantix 07/01/ Hx Tablets 1mg 60tab 1 po bid for Shawnti 2010 - smoking R. Christopher, 11/20/ cessation [employer] 2014 Chantix 06/03/ Hx Tablets 0.5mg X 1mont take by mouth Shawnti 2010 - & 1 mg h as directed RJonathan White, X [employer] 2010 Prednisone 05/21/ Hx Tablets 20mg 60tab 1 po bid for Shawnti 2010 - rash R. Christopher, 02/20/ [employer] 2011 Prednisone 03/04/ Hx Tablets 10mg 42tab take 6 tabs Shawnti 2010 - by mouth RJonathan White, 05/21/ today and [employer] 2010 tomorrow, decrease by one tab every other day then 10mg by mouth for two days, then stop Eucerin Plus 03/03/ Hx Cream 2.5-10% 2Bott apply to skin [facility] Intensive 2010 - bid and prn Jo White, Repair 02/22/ dryness [employer] 2015 Betamethasone 03/03/ Hx Ointment 0.1% 2tube apply small L20.9 Shawnti Valerate 2010 - amount to Jo White, 02/22/ rash bid [employer] 2015 Hydroxyzine HCL 01/25/ Hx Tablets 25mg 40tab 1 or 2 po qid 782.1 Shawnti 2010 - prn itching RJonathan White, 02/20/ [employer] 2011 Claritin 01/25/ Hx Tablets 10mg 90tab 1 po daily 782.1 Shawnti 2010 - for allergies RJonathan White, 02/22/ [employer] 2016 Ofloxacin 08/26/ Hx Solution 0.3% 5ml 10 gtts in Tyrell 2009 - ear qd x 7 Micki, 01/25/ days M.D. 2010 Amoxicillin 08/26/ Hx Tablets 500mg 30tab 1 po tid Tyrell 2008 - s Micki 11/24/ M.D. 2009 Triamcinolone 05/04/ Hx Cream 0.5% 30gm apply small 691.8 [facility] Acetonide 2008 - amt to Jo White, 03/03/ affected area [employer] 2010 three daily for dermatitis Zocor 12/11/ Hx Tablets 40mg 30tab 1 po qd Tyrell 2006 - s Micki, M.D. 2010 Zocor 08/24/ Hx Tablets 20mg 30tab one qhs Tyrell 2005 - s Micki, M.D. 2006 Lipitor 09/30/ Hx Tablets 80mg 30tab 1/2 po qd Tyrell 2005 - s Micki, M.D. 2005 Triamcinolone 05/19/ Hx Cream 0.5% 60gm apply to Tyrell Acetonide 2005 - affected area Micki, 01/25/ bid M.D. 2010 Lipitor 12/17/ Hx Tablets 40mg 90tab 1 po qd Tyrell 2004 - s Micki, M.D. 2005 Viagra 12/17/ Hx Tablets 100mg 12tab /2-1 tab Tyrell 2004 - s before Micki, 01/25/ intercourse M.D. 2010 Viagra 12/03/ Hx Tablets 50mg 6tabs 1 tab before Tyrell 2005 - intercourse Micki, 12/17/ M.D. 2004 Nasonex Nasal 01/07/ Hx Inhaler 17Gra 2 Sprays Each Tyrell Inhaler 2003 - m Nostril Daily Micki, M.D. 2003 Lipitor 11/20/ Hx Tablets 20mg 30tab one qd Tyrell 2003 - s Micki, M.D. 2004 Celebrex 10/23/ Hx Capsules 200mg 30cap one qd for Tyrell 2003 - s arthritis Micki, M.D. 2003 Depakote ER / Hx Tablets 500mg 2 qd Solo Lin MD 2003 Wellbutrin XL / Hx Tablets 150mg 2 qd Solo Lin MD 2005 Lexapro / Hx Tablets 10mg 14tab 1 po bid Solo Lin MD 2010 Wellbutrin XL / Hx Tablets 300mg 1 po qd Solo Lin MD 2005 Depakote ER / Hx Tablets 500mg 30tab 1 1/2 qhs Solo Lin,MD 2005 Wellbutrin XL / Hx Tablets 300mg 30tab 1 PO qd Solo Lin 0000 - s MD rebeka 2010 Higgins / Hx Tablets 300mg Solo Lin Carbonate ER 0000 - ER MD rebeka 2016 Immunizations CPT Code Status Date Vaccine Lot # [id number] Given 06/07/2013 Influenza Vaccine-Preservative Free 3 Yrs And [id number] Above 24883 Given 06/07/2012 Tdap (Adacel) [id number] Given 01/08/2004 DT (Adult) Vital Signs Date Vital Result Comment 12/27/2018 3:13pm Weight 187.50 lb Weight 85.050 [...] Date Facility Test Result H/L Range Note Order 12/27/2018 In Office Nebulizer <pending> Treatment CBC Auto 02/23/2016 [facility] White Blood 7.8 10^3/ uL N 3.5-10.8 Diff [phone] Count Red Blood Count 4.64 10^6/uL N [...] Nucleated Red Blood Cells % 0 N Comp Metabolic Panel 02/23/2016 [facility] Sodium 138 mmol/L N 133-145 [phone] Potassium 3.8 mmol/L N 3.5-5.0 Chloride 105 [...] 105.4 N >60 1 Lipid Profile 02/23/2016 [facility] Triglycerides 202 mg/dL N 2 (Trig/Chol/HDL) [phone] Cholesterol 235 mg/dL N 3 HDL Cholesterol 32.1 mg/dL N 4 LDL Cholesterol 163 mg/dL N 5 Laboratory test 02/23/2016 [facility] TSH (Thyroid 1.60 N 0.34-5.60 6 finding [phone] Stim Horm) ?IU/mL Statin 02/13/2015 [facility] Ast (Sgot) 46 U/L High 13-39 7 [phone] Alt (SGPT) 50 U/L N 7-52 8 Lipid Profile 02/13/2015 [facility] Triglycerides 123 mg/dL N 9 (Trig/Chol/HDL) [phone] Cholesterol 142 mg/dL N 10 HDL Cholesterol 30.5 mg/dL N 11 LDL Cholesterol 87 mg/dL N 12 Comp Metabolic Panel 11/20/2014 [facility] Sodium 134 mmol/L N 133-145 [phone] Potassium 4.1 mmol/L N 3.5-5.0 Chloride 99 [...] 86.1 N >60 13 Lipid Profile 11/20/2014 [facility] Triglycerides 366 mg/dL N 14 (Trig/Chol/HDL) [phone] Cholesterol 259 mg/dL N 15 HDL Cholesterol 32.3 mg/dL N 16 LDL Cholesterol 154 mg/dL N 17 Statin 05/19/2014 [facility] Ast 47 U/L High 13-39 [phone] Alt 36 U/L N 7-52 Lipid Profile 05/19/2014 [facility] Triglycerides 461 mg/dL N 18 (Trig/Chol/HDL) [phone] Cholesterol 215 mg/dL N 19 HDL Cholesterol 29.7 mg/dL N 20 LDL Cholesterol (SEE NOTE) mg/dL N 21 Laboratory test 02/04/2014 [facility] TSH (Thyroid 1.69 0.34-5.60 finding [phone] Stimulating Horm) IU/mL Lipid Profile 02/04/2014 [facility] Triglycerides 429 mg/dL 22 (Trig/Chol/HDL) [phone] Cholesterol 207 mg/dL 23 HDL Cholesterol 24.1 mg/dL 24 LDL Cholesterol (SEE NOTE) mg/dL 25 Comp Metabolic Panel 02/04/2014 [facility] Sodium 136 mmol/L 133-145 [phone] Potassium 3.8 mmol/L 3.7-5.6 Chloride 102 mmol/L [...] 86.4 >60 26 CBC Auto Diff 02/04/2014 [facility] White Blood 6.1 10^3/uL 4.8-10.8 [phone] Count Red Blood Count 4.16 10^6/uL 4.0-5.4 [...] 0-2 Nucleated Red Blood Cells % 0.1 Comp Metabolic Panel 06/07/2013 [facility] Sodium 139 mmol/L 133-145 [phone] Potassium 4.6 mmol/L 3.5-5.0 Chloride 106 mmol/L [...] Egfr Non- 71.8 >60 Egfr 92.3 >60 27 Lipid Profile 06/07/2013 [facility] Triglycerides 579 mg/dL High 40-200 (Trig/Chol/HDL) [phone] Cholesterol 260 mg/dL High Less than 200 HDL Cholesterol 29 mg/dL Low 40-60 28 Cholesterol/HDL Ratio 9.0 Average High 1-4.44 LDL Cholesterol (SEE NOTE) Less Than 100 29 Laboratory test 06/07/2013 [facility] TSH (Thyroid 1.69 0.34-5.60 finding [phone] Stimulating miu/mL Horm) CBC No Diff 06/07/2013 [facility] White Blood 6.8 4.8-10.8 [phone] Count 10^3/uL Red Blood Count 4.47 10^6/uL 4.0-5.4 Hemoglobin 14.1 g/dL 14.0-18.0 Hematocrit 40 % Low 42-52 Mean Corpuscular Volume 90 fL 80-94 Mean Corpuscular Hemoglobin 32 pg High 27-31 Mean Corpuscular HGB Conc 35 g/dL 31-36 Red Cell Distribution Width 14 % 10.5-15 Platelet Count 229 10^3/uL 150-450 Mean Platelet Volume 8 um3 7.4-10.4 Basic Metabolic 12/06/2012 [facility] Sodium 138 mmol /L 133-145 Panel [phone] Potassium 4.0 mmol/L 3.5-5.0 Chloride 105 mmol/L 101-111 Co2 Carbon Dioxide 25.0 mmol/L 22-32 Anion Gap 8.0 mmol/L 2-11 Glucose 83 mg/dL 70-100 Blood Urea Nitrogen 14 mg/dL 6-24 Creatinine 1.00 mg/dL 0.50-1.40 BUN/Creatinine Ratio 14.0 8-20 Calcium 9.4 mg/dL 8.1-9.9 Egfr Non- 80.1 >60 Egfr 103.0 >60 30 Statin 12/06/2012 [facility] Ast 44 U/L High 12-42 [phone] Alt 61 U/L High 14-54 Lipid Profile 12/06/2012 [facility] Triglycerides 435 mg/dL High 40-200 (Trig/Chol/HDL) [phone] Cholesterol 198 mg/dL Less than 200 HDL Cholesterol 33 mg/dL Low 40-60 31 Cholesterol/HDL Ratio 6.0 Average High 1-4.44 LDL Cholesterol (SEE NOTE) mg/dL Less Than 100 32 HIV 1/2 AB 12/06/2012 [facility] HIV 1 2 Nonreactive Nonreactive 33 Evaluation [phone] Antibody Statin 07/19/2012 [facility] Ast 36 U/L 12-42 34 [phone] Alt 50 U/L 14-54 35 Lipid Profile 07/19/2012 [facility] Triglycerides 223 mg/dL High 40-200 (Trig/Chol/HDL) [phone] Cholesterol 195 mg/dL Less than 200 36 HDL Cholesterol 36 mg/dL Low 40-60 37 Cholesterol/HDL Ratio 5.4 AVERAGE High 1-4.44 LDL Cholesterol 114.4 mg/dL High Less Than 100 Lipid Profile 06/07/2012 [facility] Triglyceride 332 mg/dL High 40-200 (Trig/Chol/HDL) [phone] Cholesterol 231 mg/dL High Less Than 200 38 High Density Lipoprotein 32 mg/dL Low 40-60 39 Cholesterol/HDL Ratio 7.22 AVERAGE High 1-4.97 Low Density Lipoprotein 133 mg/dL High Less Than 100 40 Comp Metabolic Panel 06/07/2012 [facility] Sodium 137 mmol/L 135-145 [phone] Potassium 4.1 mmol/L 3.5-5.0 Chloride 104 mmol/L [...] > 60 43 CBC With Manual 02/21/2012 [facility] White Blood 6.9 CUMM 4.8-10.8 Diff [phone] Count Red Cell Count 4.20 CUMM Low [...] SLIGHT Hypochromasia SLIGHT Comp Metabolic Panel 02/21/2012 [facility] Sodium 136 mmol/L 135-145 [phone] Potassium 3.9 mmol/L 3.5-5.0 Chloride 103 mmol/L [...] 83.8 > 60 46 Lipid Profile 02/21/2012 [facility] Triglyceride 484 mg/dL High 40-200 (Trig/Chol/HDL) [phone] Cholesterol 256 mg/dL High Less Than 200 47 High Density Lipoprotein 28 mg/dL Low 40-60 48 Cholesterol/HDL Ratio 9.14 AVERAGE High 1-4.97 Low Density Lipoprotein (SEE NOTE) mg/dL Less Than 100 49 Laboratory test 02/21/2012 [facility] TSH 1.20 MIU/ ML 0.34-5.60 finding [phone] LDL Direct 123 mg/dL High Less Than 100 50 Basic Metabolic 07/25/2011 [facility] Sodium 133 mmol /L Low 135-145 Panel [phone] Potassium 3.8 mmol/L 3.5-5.0 Chloride 100 mmol/L Low 101-111 Co2 (Carbon Dioxide) 23.0 mmol/L 22-32 Anion Gap 10.0 mmol/L 2-11 51 Glucose 115 mg/dL High 70-100 BUN 15 mg/dL 6-24 Creatinine 1.0 mg/dL 0.50-1.40 One Over Creatinine 1.00 BUN/Creatinine Ratio 15.0 8-20 Calcium 9.3 mg/dL 8.1-9.9 eGFR Non- 80.8 > 60 eGFR 103.9 > 60 52 CBC No Diff 06/22/2011 [facility] White Blood 5.8 CUMM 4.8-10.8 [phone] Count Red Cell Count 4.50 CUMM Low 4.6-6.2 Hemoglobin 14.2 g/dL 14.0-18.0 Hematocrit 41 % Low 42-52 Mean Corpuscular Volume 92 um3 80-94 Mean Corpuscular Hemoglob 32 pg High 27-31 Mean Corpuscular HGB Cone 35 g/dL 32-36 Redcell Distribution WDTH 15 % 10.5-15 Platelet Count 209 CUMM 150-450 Mean Platelet Volume 7.8 um3 7.4-10.4 Laboratory test 06/22/2011 [facility] Triglyceride 205 mg/dL High 40-200 finding [phone] Cholesterol 279 mg/dL High Less Than 200 53 Comp Metabolic Panel 06/22/2011 [facility] Sodium 136 mmol/L 135-145 [phone] Potassium 3.8 mmol/L 3.5-5.0 Chloride 105 mmol/L [...] 117.4 > 60 56 Erythrocyte Sed 12/05/2008 [facility] Erythrocyte Sed 23 MM/HR High 0-15 Rate Stat [phone] Rate CBC With Manual 12/05/2008 [facility] White Blood 11.7 CUMM High 4.8-10.8 Diff Stat [phone] Count Red Cell Count 4.56 CUMM Low [...] Anisocytosis SLIGHT Polychromasia SLIGHT Laboratory test 12/05/2008 [facility] C Reactive 2.2 mg/dL High Less Than finding [phone] Protein 0.5 CMP Stat 12/05/2008 [facility] Sodium 138 mmol/L 135-145 [phone] Potassium 3.9 mmol/L 3.5-5.0 Chloride 104 mmol/L [...] Ast (Sgot) 25 U/L 12-42 Statin 11/30/2006 [facility] Ast (Sgot) 25 U/L 12- 42 [phone] Alt (SGPT) 25 U/L 17-63 Lipid Profile 11/30/2006 [facility] Cholesterol/HDL 6.61 High 1-4.97 (Trig/Chol/HDL) [phone] Ratio AVERAGE Cholesterol 218 mg/dL High Less Than 200 60 Triglyceride 113 mg/dL 40-200 High Density Lipoprotein 33 mg/dL Low 40-60 61 Low Density Lipoprotein 162 mg/dL High Less Than 100 62 Lipid Profile 04/06/2006 [facility] Cholesterol, Total 165 mg/dL 120-200 63 [phone] HDL Cholesterol 28 mg/dL Low 40-60 LDL Cholesterol, Calc. 102 mg/dL AB 64 Triglycerides 177 mg/dL AB 65 LDL/HDL Cholesterol 3.6 66 Chol/HDL Cholesterol 5.9 AB 67 Laboratory 04/06/2006 [facility] TSH (Thyrotropin) 1.510 0.350-5.500 test finding [phone] uIU/ml Basic 04/06/2006 [facility] Glucose 90 mg/dL 70-100 Metabolic [phone] Panel BUN 9 mg/dL 5-21 Creatinine, Serum 1.1 mg/dL 0.6-1.5 Sodium 138 mmol/L 136-146 Potassium 4.1 mmol/L 3.5-5.3 Chloride 107 mmol/L 98-110 Carbon Dioxide 26 mmol/L 20-32 Calcium 9.3 mg/dL 8.4-10.4 Hepatic (Liver) 04/06/2006 [facility] Albumin 4.2 g/dL 3.5-4.7 Panel [phone] Protein, Total 6.6 g/dL 6.4-8.2 Alkaline Phosphatase 106 U/L 10-118 Sgot (Ast) 28 U/L 3-30 SGPT (Alt) 25 U/L 7-40 Bilirubin, Total 0.30 mg/dL 0.30-1.20 Bilirubin, Direct 0.10 mg/dL 0.00-0.40 Bilirubin, Indirect 0.20 mg/dL 0.10-1.10 Laboratory test 04/06/2006 [facility] Valproic Acid 46.4 ug /ml Low 50.0-100.0 finding [phone] GFR (Calculated) >60 68 Urinalysis Stat 03/13/2006 [facility] Ua Color YELLOW [phone] Appearance-Urine CLEAR Bilirubin-Ur NEGATIVE Negative Blood-Urine NEGATIVE Negative Esterase-Urine NEGATIVE Negative Glucose-Urine NEGATIVE Negative Ketones-Urine NEGATIVE Negative Nitrite NEGATIVE Negative PH-Urine 8.0 5-9 Protein-Urine NEGATIVE Negative Mqnkhjkiphsy-Gk-WCS NEGATIVE Negative Specific [place]-Ur 1.008 Low 1.010-1.030 CMP Stat 03/13/2006 [facility] One Over Creatinine 1.11 [phone] Anion Gap 7.0 mmol/L 2-11 69 Albumin/Globulin [...] 0.9 mg/dL 0.5-1.4 Urine Culture And 03/13/2006 [facility] Urine Culture NG 70 Sensitivites [phone] Sensitivi Lipid Profile 12/23/2005 [facility] Cholesterol/HD 7.06 AVERAGE High 1-4. (Trig/Chol/HDL) [phone] L Ratio 97 Cholesterol 219 mg/dL High Less Than 200 71 Triglyceride 136 mg/dL 40-200 High Density Lipoprotein 31 mg/dL Low 40-60 72 Low Density Lipoprotein 161 mg/dL High Less Than 100 73 Statin 12/23/2005 [facility] Ast (Sgot) 31 U/L 12- 42 [phone] Alt (SGPT) 30 U/L 17-63 Lipid Profile 03/21/2005 [facility] Cholesterol/HDL 5.18 High 1-4.97 (Trig/Chol/HDL) [phone] Ratio AVERAGE Cholesterol 176 mg/dL Less Than 200 74 Triglyceride 94 mg/dL 40-200 High Density Lipoprotein 34 mg/dL Low 40-60 75 Low Density Lipoprotein 123 mg/dL High Less Than 100 76 Statin 03/21/2005 [facility] Ast (Sgot) 22 U/L 12- 42 [phone] Alt (SGPT) 19 U/L 17-63 Laboratory test 08/31/2004 [facility] RIGHT KNEE finding [phone] Report Lipid Profile 08/18/2004 [facility] Cholesterol/HDL 8.33 AVERAGE High 1-4.97 (Trig/Chol/HDL) [phone] Ratio Cholesterol 275 mg/dL High Less Than 200 77 Triglyceride 154 mg/dL 40-200 High Density Lipoprotein 33 mg/dL Low 40-60 78 Low Density Lipoprotein 211 mg/dL High Less Than 100 79 Lipid Profile 04/08/2004 [facility] Cholesterol/HDL 5.90 High 1-4.97 (Trig/Chol/HDL) [phone] Ratio AVERAGE Cholesterol 171 mg/dL Less Than 200 80 Triglyceride 83 mg/dL 40-200 High Density Lipoprotein 29 mg/dL Low 40-60 81 Low Density Lipoprotein 125 mg/dL High Less Than 100 82 Statin 04/08/2004 [facility] Ast (Sgot) 27 U/L 12- 42 [phone] Alt (SGPT) 28 U/L 17-63 Laboratory test 10/23/2003 [facility] TSH 0.98 MIU/ ML 0.34-5.60 finding [phone] Urine DIP 10/23/2003 In House Lab Leukocytes NEG Neg ([phone] - Urine Nitrites NEG Neg Urine pH 7 High 5-6 Total Protein, Urine NEG Neg Urine Glucose NORM Norm Urine Ketones NEG Neg Urobolinogen NORM Norm Urine Bilirubin NEG Neg Urine Blood NEG Neg Comp Metabolic 10/23/2003 [facility] Anion Gap 5.0 mmol/L 2-11 83 Panel [phone] Albumin/Globulin Ratio 1.5 1-3 Albumin 4.1 GM/DL [...] Total 0.7 mg/dL 0.4-1.5 Lipid Profile 10/23/2003 [facility] Cholesterol/HDL 8.75 High 1-4.97 (Trig/Chol/HDL) [phone] Ratio AVERAGE Cholesterol 280 mg/dL High Less [...] 160-189 mg/dL Very High: >189 mg/dL 6 [id number] FASTING 12 HOUR 8 FASTING 12 [...] 5 Kidney failure <15 (or dialysis) 27 Because ethnic data is not always readily [...] 15-29 5 Kidney failure <15 (or dialysis) 28 HDL Interpretation: Undesirable: High Risk: Less than 40 mg/dL Desirable: Low Risk: Greater than 60 mg/dL 29 Unable to calculate LDL as triglyceride is > 400 30 Because ethnic data is not always [...] has been shown to interfere with the [place] method for measuring total bilirubin. Samples from [...] has been shown to interfere with the [place] method for measuring total bilirubin. Samples from [...] change was based on recommendations from the [employer]. 59 Please note change in [...] . Procedures Date Code Description Status 12/27/2018 87572 Nebulizer Treatment Completed 04/03/2017 72052 EKG, at Least 12 Leads w/Interpretation and Report Completed 02/04/2014 86502 EKG, at Least 12 Leads w/Interpretation and Report Completed 02/04/2014 77505 EKG, at Least 12 Leads w/Interpretation and Report Completed 02/21/2012 46176 EKG, at Least 12 Leads w/Interpretation and Report Completed 03/31/2006 39486 EKG, at Least 12 Leads w/Interpretation and Report Completed 05/19/200530600 Aspiration/Injection Major Bursa Completed Encounters Type Date Location Provider Dx Diagnosis Office Visit 09/28/2018 Main Office Petros White, J01.90 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, 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 H66.91 Otitis media, unspecified, right ear K29.00 Acute gastritis without bleeding Office Visit 12/15/2017 4:30p Main Office Melitonwgaby Osorio Storm, BACKHOE OPERATOR-C R05 Cough J30.9 Allergic rhinitis, unspecified Z72.0 Tobacco use L20.9 Atopic dermatitis, unspecified Office Visit 11/21/2017 1:30p Main Office Antonella J01.90 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 , Shortle, 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 TRIAL EDUCATOR unspecified Z72.0 Tobacco use Office Visit 05/31/2017 11:00a Main Office Maximus Campo, R10.30 Lower abdominal MD pain, unspecified Office Visit 04/06/2017 4:00p Main Office Petros White, J01.90 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, BACKHOE OPERATOR-C unspecified Office Visit 04/03/2017 4:30p Main Office Petros White, J01.90 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, BACKHOE OPERATOR-C unspecified R03.0 Elevated blood-pressure reading, w/o diagnosis of htn Office Visit 06/16/2016 4:30p Main Office Melitonwgaby Osorio F31.32 Bipolar disorder, Storm, BACKHOE OPERATOR-C current episode depressed, moderate M54.31 Sciatica, right side N50.9 Disorder of male genital organs, unspecified Office Visit 06/02/2016 12:00p Main Office Melitonwgaby Osorio F31.32 Bipolar disorder, Storm, BACKHOE OPERATOR-C current episode depressed, moderate Office Visit 05/13/2016 4:45p Main Office Melitonwgaby RJonathan 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, BACKHOE OPERATOR-C disorder F32.8 Other depressive episodes Office Visit 04/01/2016 Main Office Shawnti RJonathan 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 272.0 Hypercholesterolemia Pure 4:45p Storm, BACKHOE OPERATOR-C 401.9 Hypertension Unspec Office Visit 12/18/2014 4:30p Main Office Shawnti R. 401.9 Hypertension Unspec Storm, BACKHOE OPERATOR-C 272.0 Hypercholesterolemia Pure Office Visit 11/20/2014 Main Office Shawnti R. 272.0 Hypercholesterolemia Pure 4:30p Storm, BACKHOE OPERATOR-C 401.9 Hypertension Unspec 719.46 Pain Joint Lower Leg Office Visit 05/19/2014 Main Office Shawnti R. 272.0 Hypercholesterolemia Pure 4:30p Storm, BACKHOE OPERATOR-C 401.9 Hypertension Unspec Office Visit 02/14/2014 4:30p Main Office Shawnti R. Storm, 691.8 Dermatitis Atopic & BACKHOE OPERATOR-C Related Conditions Other 272.0 Hypercholesterolemia Pure 285.9 Anemia Unspec Office Visit 02/04/2014 4:45p Main Office Shawnti R. Storm, 691.8 Dermatitis Atopic & BACKHOE OPERATOR-C Related Conditions Other 786.50 Pain Chest Unspec 401.9 Hypertension Unspec Office Visit 06/07/2013 4:30p Main Office Shawnti R. 401.9 Hypertension Unspec Storm, BACKHOE OPERATOR-C 272.0 Hypercholesterolemia Pure V04.81 Need For Prophylactic Vaccination & Inoculation/Influenza Office Visit 12/06/2012 4:30p Main Office Shawnti R. 401.9 Hypertension Unspec Storm, BACKHOE OPERATOR-C 272.0 Hypercholesterolemia Pure V73.99 Screening Examination Viral Disease Unspec Office Visit 11/05/2012 4:30p Main Office Shawnti R. Storm, BACKHOE OPERATOR-C 695.3 Rosacea 691.8 Dermatitis Atopic & Related Conditions Other Office Visit 11/01/2012 10:30a Main Office Shawnti R. Storm, BACKHOE OPERATOR-C 695.3 Rosacea 691.8 Dermatitis Atopic & Related Conditions Other Office Visit 10/29/2012 3:45p Main Office Shawnti R. 695.3 Rosacea Storm, BACKHOE OPERATOR-C Office Visit 06/07/2012 4:30p Main Office Shawnti R. 401.9 Hypertension Unspec Storm, BACKHOE OPERATOR-C 305.1 Tobacco Use Disorder 272.0 Hypercholesterolemia Pure V06.1 Bjrwlhnfqg-Zzqjsqr-Wfbsgobj Combined (DTaP) Office Visit 02/21/2012 4:15p Main Office Shawnti R. 401.9 Hypertension Unspec Storm, BACKHOE OPERATOR-C 305.1 Tobacco Use Disorder 786.50 Pain Chest Unspec Office Visit 08/22/2011 4:15p Main Office Shawnti R. 401.9 Hypertension Unspec Storm, BACKHOE OPERATOR-C 381.4 Otitis Media Acute Or Chronic Nonsuppurative Office Visit 07/22/2011 Main Office Shawnti R. 401.9 Hypertension Unspec 4:30p Storm, BACKHOE OPERATOR-C Office Visit 07/01/2011 Main Office Shawnti R. 272.0 Hypercholesterolemia Pure 4:00p Storm, BACKHOE OPERATOR-C 401.9 Hypertension Unspec 305.1 Tobacco Use Disorder Office Visit 06/14/2011 4:45p Main Office Melitonwnti RJonathan White, 691.8 Dermatitis Atopic & BACKHOE OPERATOR-C Related Conditions Other Office Visit 06/03/2011 9:00a Main Office Melitonwntbassam RJonathan White, 691.8 Dermatitis Atopic & BACKHOE OPERATOR-C Related Conditions Other Office Visit 05/31/2011 9:15a Main Office Shawnti RJonathan White, 691.8 Dermatitis Atopic & BACKHOE OPERATOR-C Related Conditions Other 608.89 Male Genital Organ Disorder Other Office Visit 03/03/2011 11:00a Main Office Melitonwnti R. 691.8 Dermatitis Atopic & Storm, BACKHOE OPERATOR-C Related Conditions Other Office Visit 01/25/2011 11:00a Main Office Melitonwnti R. 782.1 Rash & Other Storm, BACKHOE OPERATOR-C Nonspec Skin Eruption Office Visit 08/26/2009 3:45p Main Office Tyrell Sweet M.D. 380.10 Otitis Externa Infective Unspec 691.8 Dermatitis Atopic & Related Conditions Other Office Visit 05/04/2009 Main Office Petros RJonathan 691.8 Dermatitis Atopic & 3:15p Storm, BACKHOE OPERATOR-C Related Conditions Other Office Visit 11/23/2006 Main Office Tyrell Sweet 272.0 Hypercholesterolemia Pure 10:30a M.D. 296.7 Bipolar I Disorder Current NOS Office Visit 08/24/2006 Main Office Tyrell Sweet 272.0 Hypercholesterolemia Pure 10:30a M.D. 305.1 Tobacco Use Disorder 296.7 Bipolar I Disorder Current NOS 302.72 Erectile Dysfunction Office Visit 03/31/2006 Main Office Tyrell Sweet, 272.0 Hypercholesterolemia Pure 11:00a M.D. 401.9 Hypertension Unspec 305.1 Tobacco Use Disorder 296.7 Bipolar I Disorder Current NOS 719.41 Pain Joint Shoulder Region Office Visit 12/30/2005 Main Office Tyrell Sweet, 272.0 Hypercholesterolemia Pure 11:00a M.D. 401.9 Hypertension [...] Other Office Visit 03/24/2005 Main Office Tyrell Sweet, 272.0 Hypercholesterolemia Pure 9:30a M.D. 296.7 Bipolar I Disorder Current NOS 305.1 Tobacco Use Disorder 302.72 Erectile Dysfunction Office Visit 12/17/2004 Main Office Tyrell Sweet, 272.0 Hypercholesterolemia Pure 1:00p M.D. 296.7 Bipolar I Disorder Current NOS 305.1 Tobacco Use Disorder 401.9 Hypertension Unspec 716.90 Arthropathy Unspec Site Unspec Office Visit 2004 Main Office Tyrell Sweet 272.0 Hypercholesterolemia Pure 9:30a M.D. 719.46 Pain Joint Lower Leg 296.7 Bipolar I Disorder Current NOS Office Visit 05/27/2004 Main Office Tyrell Sweet 719.46 Pain Joint Lower Leg 9:45a M.D. Office Visit 04/15/2004 Main Office Tyrell Sweet 272.0 Hypercholesterolemia Pure 9:45a M.D. 473.9 Sinusitis Chronic Unspec 296.7 Bipolar I [...] Malignant Neoplasm Prostate Plan of Treatment Future Appointment(s):01/10/2019 2:15 pm - BECKY Corey-C at Main Djyuqc2312/27/2018 - BECKY Croey-CL03.113 Cellulitis of right upper limbNew Medication:Amoxicillin/Clavulanate Potassium 875-125 mg - 1 by mouth twice a day for 10 days for infectionComments:will treat with augmentin, this also has great lung coverage as wellRecommendations:TAKE AUGMENTIN TWICE DAILY FOR 10 DAYS, THIS IS ALSO GOING TO HELP YOUR IMEHZB10.114 Cellulitis of left upper limbR05 CoughNew Medication:Advair HFA 230-21 mcg/Act - 2 puffs by mouth twice a dayNew Xrays:CT Chest, Thorax, W/O Contrast, Ordered: 12/27/18Comments: chronic productive cough with significant hx of smoking, will order CT scanFollow up:2 WEEKSRecommendations:USE ADVAIR ONE PUFF TWO TIMES EVERY DAY FOR YOUR BREATHING .... CONTINUE TO USE ALBUTEROL SADHBPG61.9 Dermatitis, unspecifiedNew Medication:Clobetasol Propionate 0.05 % - apply small amount to both hands twice dailyRea Lo 40 40 % - apply to hands twice dailyComments: change to clobetasol, use urea cream twice daily on hands and feetRecommendations:USE A SMALL AMOUNT OF CLOBETASOL ON YOUR HANDS TWICE DAILY NEEDED, USE UREA CREAM ON YOUR HANDS AND FEET TWICE YTQUPP15.9 Acute bronchitis, unspecifiedComments:start advair twice daily, albuterol as needed, follow in 2 weeks, will need spirometry once feeling better
--- OUTSIDE RECORDS SUMMARY | 2019-01-22 12:05 | XMS REPORT | Continuity of Care Document ---
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 [address] PayID: [id number] MIGUEL Viramontes [id number] Effective: 2010 Policy Number: [id number] [facility] Vinicio Wolfe Expires: 2014 Group Name: [employer] [address] [address] PayID: [id number] MIGUEL Viramontes [id number] Effective: 2014 Policy Number: [id number] [facility] Vinicio Wolfe Expires: 2018 Group Name: [employer] [address] [address] PayID: [id number] MIGUEL Viramontes [id number] Effective: 2018 Policy Number: [id number] [facility] Vinicio Wolfe Group Name: [employer] [address] [address] PayID: [id number] MIGUEL Viramontes [id number] Advance Directives Description No Information Available Problems [...] Daughter Diet Healthy, Well Balanced sometimes an italian muffin for breakfast, no lunch, dinner is whatever he prepares, pork chops, vegetables, spaghetti, hot dogs, pizza. 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 12/[facility]2018 Propionate/Salmeterol mouth 2 times per Storm, [employer]-C day for breathing 232-14mcg/Act Aerosol Clobetasol Propionate apply small 60gm L30.9 [facility] R. 12/27/2018 amount to both Storm, [employer] O[employer]-C 0.05% Ointment hands twice daily Post Lo 40 apply to hands 85gm L30.9 [facility] R. 12/27/2018 40% Cream twice daily Storm, [employer]-C Triamcinolone apply small 45units L20.9 [facility] R. 12/15/2017 Acetonide amount to rash Storm, [employer]-C 0.5% Ointment three times a day until resolved Ventolin HFA inhale two puffs 8gm R05 Melitongaby R. 12/15/2017 by mouth every 4 Storm, [employer] O[employer]-C 108(90Base) mcg/Act hours as needed Aerosol for wheeze Fish Oil daily [facility] 12/11/2012 1000mg Storm, [employer]-C Capsules DR Minocycline HCL 1 by mouth twice 60caps L71.8 Petros R. 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 12/27/2018 - twice a day Storm, [facility] 12/31/2018 230-21mcg/Act Aerosol Amoxicillin/Clavulan 1 by mouth twice a 20tabs L03.113 Petros R. 2018 - ate Potassium day for 10 days Storm, [facility] 01/10/2019 for infection 875-125mg Tablets Augmentin 1 by mouth twice a 20tabs J01.90 [facility] R. 09/28/2018 - 875-125mg day for infection [facility], [facility] 10/28/2018 Tablets Omeprazole 1 by mouth every 30caps K29.00 Melitongaby R. 09/28/2018 - 20mg day [facility], [facility] 12/27/[address] Salazar 2 sprays each 8.700gm J30.9 [facility]2017 - 80mcg/Act nostril daily Christopher [facility] 09/28/2018 Aerosol Benzonatate 1 by mouth three 30caps R05 Petros R. 12/15/2017 - 200mg times a day for Christopher, [facility] 09/28/2018 Capsules cough Urea apply thin layer 85gm L20.9 [facility] R. 12/15/2017 - 40% Cream to feet before bed [facility], [facility] 12/27/2018 Amoxicillin/Clavulan 1 tab by mouth 20tabs J01.90 Antonella 11/21/2017 - ate Potassium twice a day for 10 Shortle, [employer] 12/15/2017 days 875-125mg Tablets Chantix Starting per starter pack 60tabs Z72.0 Petros R. 11/21/2017 - Month Kwan instructions Christopher, [facility] 09/28/2018 0.5mg X 11 & 1 mg X 42 Tablets Omeprazole 1 by mouth every 14caps R10.30 Maximus 05/31/2017 - 20mg day MD Alber 09/28/2018 Capsules Amoxicillin/Clavulan 1 by mouth twice a 20tabs J01.90 Mesickmorgan RJonathan 2016 - ate Potassium day for 10 days [facility] 04/13/2017 for infection 875-125mg Tablets Seroquel take one tablet by 30tabs F31.32 Melitonshanti R. 06/02/2016 - 50mg Tablets mouth at bedtime [facility] 06/02/2016 Risperidone 1 PO QHS 30tabs F31.32 Kirannti R. 06/02/2016 - 0.5mg [facility] 04/03/2017 Tablets Clomipramine HCL 1 po QHS 30caps F52.32 Mesicknti R. 04/01/2016 - 50mg [facility] 04/03/2017 Capsules Clomipramine HCL 1 po daily before 30caps F52.32 Kirannti R. 03/14/2016 - 25mg bed [facility] 04/01/2016 Capsules Viagra take 1/2 to 1 14tabs F52.32 [facility] 03/14/2016 - 50mg Tablets tablet by mouth [facility] 04/03/2017 1/2 hour prior to sexual activity Chantix Starting one by mouth twice 60tabs L20.9 [facility] 09/03/2015 - Month Kwan a day, start per [facility] 02/23/2016 0.5mg X 11 package directions & 1 mg X 42 Tablets Lipitor 1 by mouth every 30tabs 272.0 [facility] R. 12/18/2014 - 20mg Tablets day for [facility] 02/23/2016 cholesterol Triamcinolone apply small amount 45units L20.9 [facility] R. 12/05/2014 - Acetonide to rash three [facility] 11/21/2017 0.5% times a day until Ointment resolved Lisinopril 1 by mouth every 30tabs 401.9 [facility] 11/20[facility]2014 - 10mg day [facility] 02/23/2016 Tablets Clobetasol apply sparingly to 30gm 691.8 [facility] 11/01/2012 - Propionate affected area bid [facility] 12/05/2014 0.05% for two weeks if Cream needed Eucerin apply to face bid 1tub L20.9 [facility] R. 11/01/2012 - Cream [facility] 09/03/2015 Minocycline HCL 1 po bid 20caps 695.3 [facility] 10/29/2012 - 100mg [facility] 12/06/2012 Capsules Metronidazole apply a pea sized 45gm 695.3 [facility] 10/29/2012 - 0.75% amount to face qhs [facility] 11/05/2012 Cream Crestor 1 po qhs for 30tabs 272.0 [facility] 06/08/2012 - 20mg Tablets cholesterol [facility], [facility] 02/14/2014 Lovastatin 1 po daily for 90tabs 272.0 [facility] 03/01/2012 - 40mg cholesterol [facility], [facility] 06/08/2012 Tablets Chantix take by mouth as 60tabs 305.1 [facility] 02/21/2012 - 0.5mg X 11 & directed [facility], [facility] 11/20/2014 1 mg X Tablets Clobetasol apply sparingly to 1tube [facility] 08/22/2011 - Propionate affected area bid [facility] 11/01/2012 0.05% for two weeks if Ointment needed Amoxicillin 1 po bid for ear 20tabs 381.4 [facility] 08/22/2011 - 875mg infection [facility], [facility] 02/21/2012 Tablets Lisinopril 1 po daily for 90tabs 401.9 Mesicknt R. 07/22/2011 - 20mg blood pressure [facility], [facility] 11/20/2014 Tablets Lovastatin 1 po daily for 30tabs 272.0 [facility] 07/01/2011 - 20mg high cholesterol [facility], [facility] 03/01/2012 Tablets Lisinopril/Hydrochlo 1 po daily for 30tabs 401.9 [facility] 07/01/2011 - rothiazide blood pressure [facility], [facility] 07/22/2011 10-12.5mg Tablets Chantix 1 po bid for 60tabs [facility] 07/01/2011 - 1mg Tablets smoking cessation [facility] 11/20/2014 Chantix take by mouth as 1month Petros Osorio 06/03/2011 - 0.5mg X 11 & directed [facility] 07/01/2011 1 mg X Tablets Prednisone 1 po bid for rash 60tabs Petros Osorio 05/21/2011 - 20mg [facility] 02/21/2012 Tablets Prednisone take 6 tabs by 42tabs Petros Osorio 03/04/2011 - 10mg mouth today and [facility] 05/21/2011 Tablets tomorrow, decrease by one tab every other day then 10mg by mouth for two days, then stop Eucerin Plus apply to skin bid 2Bottles Petros Osorio 03/03/2011 - Intensive Repair and prn dryness [facility] 02/23/2016 2.5-10% Cream Betamethasone apply small amount 2tubes L20.9 Petros Osorio 03/03/2011 - Valerate to rash bid [facility] 02/23/2016 0.1% Ointment Hydroxyzine HCL 1 or 2 po qid prn 40tabs 782.1 Petros Osorio 01/25/2011 - 25mg itching [facility] 02/21/2012 Tablets Claritin 1 po daily for 90tabs 782.1 [facility]/25[facility] - 10mg Tablets allergies [facility] 02/23/2016 Ofloxacin 10 gtts in ear qd 5ml Tyrell Sweet, 08/26/2009 - 0.3% x 7 days M.D. 01/25/2011 Solution Amoxicillin 1 po tid 30tabs Tyrell Sweet, 08/26/2009 - 500mg M.D. 11/24/2009 Tablets Triamcinolone apply small amt to 30gm 691.8 Petros Osorio 05/04/2009 - Acetonide affected area [facility] 03/03/2011 0.5% Cream three daily for dermatitis Zocor 1 po qd 30tabs Tyrell Sweet, 12/11/2006 - 40mg Tablets M.D. 01/25/2011 Zocor one qhs 30tabs Tyrell Sweet, 08/24/2006 - 20mg Tablets M.D. 12/11/2006 Lipitor 1/2 po qd 30tabs Tyrell Sweet, 09/30/2005 - 80mg Tablets M.D. 08/24/2006 Triamcinolone apply to affected 60gm Tyrell Sweet, 05/19/2005 - Acetonide area bid M.D. 01/25/2011 0.5% Cream Lipitor 1 po qd 90tabs Tyrell Sweet, 12/17/2004 - 40mg Tablets M.D. 09/30/2005 Viagra 1/2-1 tab before 12tabs Tyrell Sweet, 12/17/2004 - 100mg Tablets intercourse M.D. 01/25/2011 Viagra 1 tab before 6tabs Tyrell Sweet, 12/03/2004 - 50mg Tablets intercourse M.D. 12/17/2004 Nasonex Nasal 2 Sprays Each 17Gram Tyrell Sweet, 01/08/2004 - Inhaler Nostril Daily M.D. 02/07/2004 Inhaler Lipitor one qd 30tabs Tyrell Sweet, 11/20/2003 - 20mg Tablets M.D. 12/17/2004 Celebrex one qd for 30caps Tyrell Sweet, 10/23/2003 - 200mg arthritis M.D. 2004 Capsules Depakote ER 2 qd Babatunde Lin - 500mg , 04/15/2004 Tablets Wellbutrin XL 2 qd Babatunde Lin - 150mg , 09/30/2005 Tablets Lexapro 1 po bid 14tabs Babatunde Lin - 10mg Tablets , 01/25/2011 Wellbutrin XL 1 po qd Babatunde Lin - 300mg , 03/31/2006 Tablets Depakote ER 1 1/2 qhs 30tabs Babatunde Lin - 500mg , 08/24/2006 Tablets Wellbutrin XL 1 PO qd 30tabs Babatunde Lin - 300mg , 01/25/2011 Tablets [place] Carbonate ER Babatunde Lin - , 05/31/2017 300mg Tablets ER Mucinex take 1 tablet by Unknown - 600mg Tablets mouth every 12 01/10/2019 ER 12HR hours as needed for chest congestion Immunizations CPT Code Status Date Vaccine Lot # [id number] Given 06/07/2013 Influenza Vaccine-Preservative Free 3 Yrs And [id number] Given 06/07/2012 Tdap (Adacel) [id number] Given 01/08/2004 DT (Adult) Vital Signs Date Vital Result Comment 01/10/2019 2:15pm Weight 190.00 lb Weight 86.184 [...] Office Nebulizer <pending> Treatment CBC Auto 02/23/2016 [facility] White Blood 7.8 10^3/ uL N 3.5-10.8 Diff [phone] Count Red Blood Count 4.64 10^6/uL N [...] % 0 N Comp Metabolic Panel 02/23/2016 [facility] Sodium 138 mmol/L N 133-145 [phone] Potassium 3.8 mmol/L N 3.5-5.0 Chloride 105 [...] 105.4 N >60 1 Lipid Profile 02/23/2016 [facility] Triglycerides 202 mg/dL N 2 (Trig/Chol/HDL) [phone] Cholesterol 235 mg/dL N 3 HDL Cholesterol 32.1 mg/dL N 4 LDL Cholesterol 163 mg/dL N 5 Laboratory test 02/23/2016 [facility] TSH (Thyroid 1.60 N 0.34-5.60 6 finding [phone] Stim Horm) ?IU/mL Statin 02/13/2015 [facility] Ast (Sgot) 46 U/L High 13-39 7 [phone] Alt (SGPT) 50 U/L N 7-52 8 Lipid Profile 02/13/2015 [facility] Triglycerides 123 mg/dL N 9 (Trig/Chol/HDL) [phone] Cholesterol 142 mg/dL N 10 HDL Cholesterol 30.5 mg/dL N 11 LDL Cholesterol 87 mg/dL N 12 Comp Metabolic Panel 11/20/2014 [facility] Sodium 134 mmol/L N 133-145 [phone] Potassium 4.1 mmol/L N 3.5-5.0 Chloride 99 [...] 86.1 N >60 13 Lipid Profile 11/20/2014 [facility] Triglycerides 366 mg/dL N 14 (Trig/Chol/HDL) [phone] Cholesterol 259 mg/dL N 15 HDL Cholesterol 32.3 mg/dL N 16 LDL Cholesterol 154 mg/dL N 17 Statin 05/19/2014 [facility] Ast 47 U/L High 13-39 [phone] Alt 36 U/L N 7-52 Lipid Profile 05/19/2014 [facility] Triglycerides 461 mg/dL N 18 (Trig/Chol/HDL) [phone] Cholesterol 215 mg/dL N 19 HDL Cholesterol 29.7 mg/dL N 20 LDL Cholesterol (SEE NOTE) mg/dL N 21 Laboratory test 02/04/2014 [facility] TSH (Thyroid 1.69 0.34-5.60 finding [phone] Stimulating Horm) IU/mL Lipid Profile 02/04/2014 [facility] Triglycerides 429 mg/dL 22 (Trig/Chol/HDL) [phone] Cholesterol 207 mg/dL 23 HDL Cholesterol 24.1 mg/dL 24 LDL Cholesterol (SEE NOTE) mg/dL 25 Comp Metabolic Panel 02/04/2014 [facility] Sodium 136 mmol/L 133-145 [phone] Potassium 3.8 mmol/L 3.7-5.6 Chloride 102 mmol/L [...] 86.4 >60 26 CBC Auto Diff 02/04/2014 [facility] White Blood 6.1 10^3/uL 4.8-10.8 [phone] Count Red Blood Count 4.16 10^6/uL 4.0-5.4 [...] Blood Cells % 0.1 Lipid Profile 06/07/2013 [facility] Triglycerides 579 mg/dL High 40-200 (Trig/Chol/HDL) [phone] Cholesterol 260 mg/dL High Less than 200 HDL Cholesterol 29 mg/dL Low 40-60 27 Cholesterol/HDL Ratio 9.0 Average High 1-4.44 LDL Cholesterol (SEE NOTE) Less Than 100 28 Laboratory test 06/07/2013 [facility] TSH (Thyroid 1.69 0.34-5.60 finding [phone] Stimulating miu/mL Horm) Comp Metabolic 06/07/2013 [facility] Sodium 139 mmol/ L 133-145 Panel [phone] Potassium 4.6 mmol/L 3.5-5.0 Chloride 106 mmol/L [...] 92.3 >60 29 CBC No Diff 06/07/2013 [facility] White Blood 6.8 10^ 3/uL 4.8-10.8 [phone] Count Red Blood Count 4.47 10^6/uL 4.0-5.4 Hemoglobin 14.1 g/dL 14.0-18.0 Hematocrit 40 % Low 42-52 Mean Corpuscular Volume 90 fL 80-94 Mean Corpuscular Hemoglobin 32 pg High 27-31 Mean Corpuscular HGB Conc 35 g/dL 31-36 Red Cell Distribution Width 14 % 10.5-15 Platelet Count 229 10^3/uL 150-450 Mean Platelet Volume 8 um3 7.4-10.4 Basic Metabolic 12/06/2012 [facility] Sodium 138 mmol /L 133-145 Panel [phone] Potassium 4.0 mmol/L 3.5-5.0 Chloride 105 mmol/L 101-111 Co2 Carbon Dioxide 25.0 mmol/L 22-32 Anion Gap 8.0 mmol/L 2-11 Glucose 83 mg/dL 70-100 Blood Urea Nitrogen 14 mg/dL 6-24 Creatinine 1.00 mg/dL 0.50-1.40 BUN/Creatinine Ratio 14.0 8-20 Calcium 9.4 mg/dL 8.1-9.9 Egfr Non- 80.1 >60 Egfr 103.0 >60 30 Statin 12/06/2012 [facility] Ast 44 U/L High 12-42 [phone] Alt 61 U/L High 14-54 Lipid Profile 12/06/2012 [facility] Triglycerides 435 mg/dL High 40-200 (Trig/Chol/HDL) [phone] Cholesterol 198 mg/dL Less than 200 HDL Cholesterol 33 mg/dL Low 40-60 31 Cholesterol/HDL Ratio 6.0 Average High 1-4.44 LDL Cholesterol (SEE NOTE) mg/dL Less Than 100 32 HIV 1/2 AB 12/06/2012 [facility] HIV 1 2 Nonreactive Nonreactive 33 Evaluation [phone] Antibody Statin 07/19/2012 [facility] Ast 36 U/L 12-42 34 [phone] Alt 50 U/L 14-54 35 Lipid Profile 07/19/2012 [facility] Triglycerides 223 mg/dL High 40-200 (Trig/Chol/HDL) [phone] Cholesterol 195 mg/dL Less than 200 36 HDL Cholesterol 36 mg/dL Low 40-60 37 Cholesterol/HDL Ratio 5.4 AVERAGE High 1-4.44 LDL Cholesterol 114.4 mg/dL High Less Than 100 Lipid Profile 06/07/2012 [facility] Triglyceride 332 mg/dL High 40-200 (Trig/Chol/HDL) [phone] Cholesterol 231 mg/dL High Less Than 200 38 High Density Lipoprotein 32 mg/dL Low 40-60 39 Cholesterol/HDL Ratio 7.22 AVERAGE High 1-4.97 Low Density Lipoprotein 133 mg/dL High Less Than 100 40 Comp Metabolic Panel 06/07/2012 [facility] Sodium 137 mmol/L 135-145 [phone] Potassium 4.1 mmol/L 3.5-5.0 Chloride 104 mmol/L [...] > 60 43 CBC With Manual 02/21/2012 [facility] White Blood 6.9 CUMM 4.8-10.8 Diff [phone] Count Red Cell Count 4.20 CUMM Low [...] SLIGHT Hypochromasia SLIGHT Comp Metabolic Panel 02/21/2012 [facility] Sodium 136 mmol/L 135-145 [phone] Potassium 3.9 mmol/L 3.5-5.0 Chloride 103 mmol/L [...] 83.8 > 60 46 Lipid Profile 02/21/2012 [facility] Triglyceride 484 mg/dL High 40-200 (Trig/Chol/HDL) [phone] Cholesterol 256 mg/dL High Less Than 200 47 High Density Lipoprotein 28 mg/dL Low 40-60 48 Cholesterol/HDL Ratio 9.14 AVERAGE High 1-4.97 Low Density Lipoprotein (SEE NOTE) mg/dL Less Than 100 49 Laboratory test 02/21/2012 [facility] TSH 1.20 MIU/ ML 0.34-5.60 finding [phone] LDL Direct 123 mg/dL High Less Than 100 50 Basic Metabolic 07/25/2011 [facility] Sodium 133 mmol /L Low 135-145 Panel [phone] Potassium 3.8 mmol/L 3.5-5.0 Chloride 100 mmol/L Low 101-111 Co2 (Carbon Dioxide) 23.0 mmol/L 22-32 Anion Gap 10.0 mmol/L 2-11 51 Glucose 115 mg/dL High 70-100 BUN 15 mg/dL 6-24 Creatinine 1.0 mg/dL 0.50-1.40 One Over Creatinine 1.00 BUN/Creatinine Ratio 15.0 8-20 Calcium 9.3 mg/dL 8.1-9.9 eGFR Non- 80.8 > 60 eGFR 103.9 > 60 52 CBC No Diff 06/22/2011 [facility] White Blood 5.8 CUMM 4.8-10.8 [phone] Count Red Cell Count 4.50 CUMM Low 4.6-6.2 Hemoglobin 14.2 g/dL 14.0-18.0 Hematocrit 41 % Low 42-52 Mean Corpuscular Volume 92 um3 80-94 Mean Corpuscular Hemoglob 32 pg High 27-31 Mean Corpuscular HGB Cone 35 g/dL 32-36 Redcell Distribution WDTH 15 % 10.5-15 Platelet Count 209 CUMM 150-450 Mean Platelet Volume 7.8 um3 7.4-10.4 Laboratory test 06/22/2011 [facility] Triglyceride 205 mg/dL High 40-200 finding [phone] Cholesterol 279 mg/dL High Less Than 200 53 Comp Metabolic Panel 06/22/2011 [facility] Sodium 136 mmol/L 135-145 [phone] Potassium 3.8 mmol/L 3.5-5.0 Chloride 105 mmol/L [...] 117.4 > 60 56 Erythrocyte Sed 12/05/2008 [facility] Erythrocyte Sed 23 MM/HR High 0-15 Rate Stat [phone] Rate CBC With Manual 12/05/2008 [facility] White Blood 11.7 CUMM High 4.8-10.8 Diff Stat [phone] Count Red Cell Count 4.56 CUMM Low [...] Anisocytosis SLIGHT Polychromasia SLIGHT Laboratory test 12/05/2008 [facility] C Reactive 2.2 mg/dL High Less Than finding [phone] Protein 0.5 CMP Stat 12/05/2008 [facility] Sodium 138 mmol/L 135-145 [phone] Potassium 3.9 mmol/L 3.5-5.0 Chloride 104 mmol/L [...] Ast (Sgot) 25 U/L 12-42 Statin 11/30/2006 [facility] Ast (Sgot) 25 U/L 12- 42 [phone] Alt (SGPT) 25 U/L 17-63 Lipid Profile 11/30/2006 [facility] Cholesterol/HDL 6.61 High 1-4.97 (Trig/Chol/HDL) [phone] Ratio AVERAGE Cholesterol 218 mg/dL High Less Than 200 60 Triglyceride 113 mg/dL 40-200 High Density Lipoprotein 33 mg/dL Low 40-60 61 Low Density Lipoprotein 162 mg/dL High Less Than 100 62 Lipid Profile 04/06/2006 [facility] Cholesterol, Total 165 mg/dL 120-200 63 [phone] HDL Cholesterol 28 mg/dL Low 40-60 LDL Cholesterol, Calc. 102 mg/dL AB 64 Triglycerides 177 mg/dL AB 65 LDL/HDL Cholesterol 3.6 66 Chol/HDL Cholesterol 5.9 AB 67 Laboratory 04/06/2006 [facility] TSH (Thyrotropin) 1.510 0.350-5.500 test finding [phone] uIU/ml Basic 04/06/2006 [facility] Glucose 90 mg/dL 70-100 Metabolic [phone] Panel BUN 9 mg/dL 5-21 Creatinine, Serum 1.1 mg/dL 0.6-1.5 Sodium 138 mmol/L 136-146 Potassium 4.1 mmol/L 3.5-5.3 Chloride 107 mmol/L 98-110 Carbon Dioxide 26 mmol/L 20-32 Calcium 9.3 mg/dL 8.4-10.4 Hepatic (Liver) 04/06/2006 [facility] Albumin 4.2 g/dL 3.5-4.7 Panel [phone] Protein, Total 6.6 g/dL 6.4-8.2 Alkaline Phosphatase 106 U/L 10-118 Sgot (Ast) 28 U/L 3-30 SGPT (Alt) 25 U/L 7-40 Bilirubin, Total 0.30 mg/dL 0.30-1.20 Bilirubin, Direct 0.10 mg/dL 0.00-0.40 Bilirubin, Indirect 0.20 mg/dL 0.10-1.10 Laboratory test 04/06/2006 [facility] Valproic Acid 46.4 ug /ml Low 50.0-100.0 finding [phone] GFR (Calculated) >60 68 Urinalysis Stat 03/13/2006 [facility] Ua Color YELLOW [phone] Appearance-Urine CLEAR Bilirubin-Ur NEGATIVE Negative Blood-Urine NEGATIVE Negative Esterase-Urine NEGATIVE Negative Glucose-Urine NEGATIVE Negative Ketones-Urine NEGATIVE Negative Nitrite NEGATIVE Negative PH-Urine 8.0 5-9 Protein-Urine NEGATIVE Negative Iflcxvrsfaef-Jj-SYN NEGATIVE Negative Specific [place]-Ur 1.008 Low 1.010-1.030 CMP Stat 03/13/2006 [facility] One Over Creatinine 1.11 [phone] Anion Gap 7.0 mmol/L 2-11 69 Albumin/Globulin [...] 0.9 mg/dL 0.5-1.4 Urine Culture And 03/13/2006 [facility] Urine Culture NG 70 Sensitivites [phone] Sensitivi Statin 12/23/2005 [facility] Ast (Sgot) 31 U/L 12- 42 [phone] Alt (SGPT) 30 U/L 17-63 Lipid Profile 12/23/2005 [facility] Cholesterol/HDL 7.06 High 1-4.97 (Trig/Chol/HDL) [phone] Ratio AVERAGE Cholesterol 219 mg/dL High Less Than 200 71 Triglyceride 136 mg/dL 40-200 High Density Lipoprotein 31 mg/dL Low 40-60 72 Low Density Lipoprotein 161 mg/dL High Less Than 100 73 Lipid Profile 03/21/2005 [facility] Cholesterol/HDL 5.18 High 1-4.97 (Trig/Chol/HDL) [phone] Ratio AVERAGE Cholesterol 176 mg/dL Less Than 200 74 Triglyceride 94 mg/dL 40-200 High Density Lipoprotein 34 mg/dL Low 40-60 75 Low Density Lipoprotein 123 mg/dL High Less Than 100 76 Statin 03/21/2005 [facility] Ast (Sgot) 22 U/L 12- 42 [phone] Alt (SGPT) 19 U/L 17-63 Laboratory test 08/31/2004 [facility] RIGHT KNEE finding ([phone] - Report Lipid Profile 08/18/2004 [facility] Cholesterol/HDL 8.33 AVERAGE High 1-4.97 (Trig/Chol/HDL) [phone] Ratio Cholesterol 275 mg/dL High Less Than 200 77 Triglyceride 154 mg/dL 40-200 High Density Lipoprotein 33 mg/dL Low 40-60 78 Low Density Lipoprotein 211 mg/dL High Less Than 100 79 Lipid Profile 04/08/2004 [facility] Cholesterol/HDL 5.90 High 1-4.97 (Trig/Chol/HDL) [phone] Ratio AVERAGE Cholesterol 171 mg/dL Less Than 200 80 Triglyceride 83 mg/dL 40-200 High Density Lipoprotein 29 mg/dL Low 40-60 81 Low Density Lipoprotein 125 mg/dL High Less Than 100 82 Statin 04/08/2004 [facility] Ast (Sgot) 27 U/L 12- 42 [phone] Alt (SGPT) 28 U/L 17-63 Urine DIP 10/23/2003 In House Lab Leukocytes NEG Neg ([phone])- - Urine Nitrites NEG Neg Urine pH 7 High 5-6 Total Protein, Urine NEG Neg Urine Glucose NORM Norm Urine Ketones NEG Neg Urobolinogen NORM Norm Urine Bilirubin NEG Neg Urine Blood NEG Neg Laboratory test 10/23/2003 [facility] TSH 0.98 MIU/ ML 0.34-5.60 finding [phone] Comp Metabolic 10/23/2003 [facility] Anion Gap 5.0 mmol/L 2-11 83 Panel [phone] Albumin/Globulin Ratio 1.5 1-3 Albumin 4.1 GM/DL [...] Total 0.7 mg/dL 0.4-1.5 Lipid Profile 10/23/2003 [facility] Cholesterol/HDL 8.75 High 1-4.97 (Trig/Chol/HDL) [phone] Ratio AVERAGE Cholesterol 280 mg/dL High Less [...] 160-189 mg/dL Very High: >189 mg/dL 6 [id number] FASTING 12 HOUR 8 FASTING 12 [...] has been shown to interfere with the [place]rass[place]-Evergreen method for measuring total bilirubin. Samples from [...] has been shown to interfere with the [place]rass[place]-Evergreen method for measuring total bilirubin. Samples from [...] change was based on recommendations from the [employer]. 59 Please note change in [...] . Procedures Date Code Description Status 12/27/2018 30456 Nebulizer Treatment Completed 04/03/2017 36245 EKG, at Least 12 Leads w/Interpretation and Report Completed 02/04/2014 92608 EKG, at Least 12 Leads w/Interpretation and Report Completed 02/04/2014 45258 EKG, at Least 12 Leads w/Interpretation and Report Completed 02/21/2012 20238 EKG, at Least 12 Leads w/Interpretation and Report Completed 03/31/2006 07524 EKG, at Least 12 Leads w/Interpretation and Report Completed 05/19/2005 Aspiration/Injection Major Bursa Completed Encounters Type Date Location Provider Dx Diagnosis Office Visit 12/27/2018 Main Office Petros White, L03.113 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 L03.114 Cellulitis of left upper limb R05 Cough L30.9 Dermatitis, unspecified J20.9 Acute bronchitis, unspecified Office Visit 09/28/2018 4:45p Main Office Melitonwgaby Osorio J01.90 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, 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, 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 OPERATOR-C unspecified H66.91 Otitis media, unspecified, right ear K29.00 Acute gastritis without bleeding Office Visit 12/15/2017 4:30p Main Office Melitonwgaby Osorio Storm, GRANULATOR OPERATOR-C R05 Cough J30.9 Allergic rhinitis, unspecified Z72.0 Tobacco use L20.9 Atopic dermatitis, unspecified Office Visit 11/21/2017 1:30p Main Office Antonella J01.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 F31.32 Bipolar disorder, Storm, GRANULATOR OPERATOR-C current episode depressed, moderate M54.31 Sciatica, right side N50.9 Disorder of male genital organs, unspecified Office Visit 06/02/2016 12:00p Main Office Shawnti R. F31.32 Bipolar disorder, Storm, GRANULATOR OPERATOR-C current episode depressed, moderate Office Visit 05/13/2016 4:45p Main Office Shawnti R. 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 Z00.00 Encntr for general adult 3:15p Storm, GRANULATOR OPERATOR-C medical exam w/o abnormal findings Office Visit 09/03/2015 Main Office Shawnti R. L20.9 Atopic dermatitis, 4:45p Storm, GRANULATOR OPERATOR-C unspecified Office Visit 02/19/2015 Main Office Shawnti R. 272.0 Hypercholesterolemia Pure 4:45p Storm, GRANULATOR OPERATOR-C 401.9 Hypertension Unspec Office Visit 12/18/2014 4:30p Main Office Shawnti R. 401.9 Hypertension Unspec Storm, GRANULATOR OPERATOR-C 272.0 Hypercholesterolemia Pure Office Visit 11/20/2014 Main Office Shawnti R. 272.0 Hypercholesterolemia Pure 4:30p Storm, GRANULATOR OPERATOR-C 401.9 Hypertension Unspec 719.46 Pain Joint Lower Leg Office Visit 05/19/2014 Main Office Shawnti R. 272.0 Hypercholesterolemia Pure 4:30p Storm, GRANULATOR OPERATOR-C 401.9 Hypertension Unspec Office Visit 02/14/2014 4:30p Main Office Shawnti R. Storm, 691.8 Dermatitis Atopic & GRANULATOR OPERATOR-C Related Conditions Other 272.0 Hypercholesterolemia Pure 285.9 Anemia Unspec Office Visit 02/04/2014 4:45p Main Office Shawnti R. Storm, 691.8 Dermatitis Atopic & GRANULATOR OPERATOR-C Related Conditions Other 786.50 Pain Chest Unspec 401.9 Hypertension Unspec Office Visit 06/07/2013 4:30p Main Office Shawnti R. 401.9 Hypertension Unspec Storm, GRANULATOR OPERATOR-C 272.0 Hypercholesterolemia Pure V04.81 Need For Prophylactic Vaccination & Inoculation/Influenza Office Visit 12/06/2012 4:30p Main Office Shawnti R. 401.9 Hypertension Unspec Storm, GRANULATOR OPERATOR-C 272.0 Hypercholesterolemia Pure V73.99 Screening Examination Viral Disease Unspec Office Visit 11/05/2012 4:30p Main Office Shawnti R. Storm, GRANULATOR OPERATOR-C 695.3 Rosacea 691.8 Dermatitis Atopic & Related Conditions Other Office Visit 11/01/2012 10:30a Main Office Shawnti R. Storm, GRANULATOR OPERATOR-C 695.3 Rosacea 691.8 Dermatitis Atopic & Related Conditions Other Office Visit 10/29/2012 3:45p Main Office Shawnti R. 695.3 Rosacea Storm, GRANULATOR OPERATOR-C Office Visit 06/07/2012 4:30p Main Office Shawnti R. 401.9 Hypertension Unspec Storm, GRANULATOR OPERATOR-C 305.1 Tobacco Use Disorder 272.0 Hypercholesterolemia Pure V06.1 Kopjfslxrv-Pugrxhq-Otaxszix Combined (DTaP) Office Visit 02/21/2012 4:15p Main Office Shawnti R. 401.9 Hypertension Unspec Storm, GRANULATOR OPERATOR-C 305.1 Tobacco Use Disorder 786.50 Pain Chest Unspec Office Visit 08/22/2011 4:15p Main Office Shawnti R. 401.9 Hypertension Unspec Storm, GRANULATOR OPERATOR-C 381.4 Otitis Media Acute Or Chronic Nonsuppurative Office Visit 07/22/2011 Main Office Shawnti R. 401.9 Hypertension Unspec 4:30p Storm, GRANULATOR OPERATOR-C Office Visit 07/01/2011 Main Office Shawnti R. 272.0 Hypercholesterolemia Pure 4:00p Storm, GRANULATOR OPERATOR-C 401.9 Hypertension Unspec 305.1 Tobacco Use Disorder Office Visit 06/14/2011 4:45p Main Office Shawnti R. Storm, 691.8 Dermatitis Atopic & GRANULATOR OPERATOR-C Related Conditions Other Office Visit 06/03/2011 9:00a Main Office Shawnti R. Storm, 691.8 Dermatitis Atopic & GRANULATOR OPERATOR-C Related Conditions Other Office Visit 05/31/2011 9:15a Main Office Shawnti R. 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 691.8 Dermatitis Atopic & Storm, GRANULATOR OPERATOR-C Related Conditions Other Office Visit 01/25/2011 11:00a Main Office Shawnti R. 782.1 Rash & Other Storm, GRANULATOR OPERATOR-C Nonspec Skin Eruption Office Visit 08/26/2009 3:45p Main Office Tyrell Sweet M.D. 380.10 Otitis Externa Infective Unspec 691.8 Dermatitis Atopic & Related Conditions Other Office Visit 05/04/2009 Main Office Melitonwntbassam R. 691.8 Dermatitis Atopic & 3:15p Storm, GRANULATOR OPERATOR-C Related Conditions Other Office Visit 11/23/2006 [...] Office Tyrell Sweet 272.0 Hypercholesterolemia Pure 1:00p M.D. 296.7 Bipolar [...] of Treatment Future Appointment(s):04/23/2019 1:30 pm - SADI CoreyC at Main Xirbqt4301/10/2019 - BECKY Corey-CJ18.9 Pneumonia, unspecified organismComments:doing much better, continue Advair twice daily, continue to avoid ciggs. schedule for annual examFollow up:appt for annual exam
[2019-01-22] MEDS ORDERED: Piperacillin/Tazobac ADVAN(*) 3.375 GM in NS 0.9% 100 ML* 100 ML IVPB ONE (12:06)
[2019-01-22] MEDS ORDERED: Ketorolac INJ* 30 MG/ML 1 ML VIAL ONE (12:22)
[2019-01-22] MEDS ORDERED: Ketorolac INJ* 30 MG/ML 1 ML VIAL IV PUSH ONE (12:22)
[2019-01-22 12:38] LABS: Urine Appearance Clear; Urine Bilirubin Negative (Negative); Urine Blood Negative (Negative); Urine Color Yellow; Urine Glucose Negative (Negative); Urine Ketones Negative (Negative); Urine Nitrite Negative (Negative); Urine Protein Negative (Negative); Urine Specific Gravity 1.011 (1.010-1.030); Urine Urobilinogen Negative (Negative)
[2019-01-22 12:40] LABS: Erythrocyte Sed Rate 21 mm/Hr (0-19)
[2019-01-22 12:48] LABS: Albumin 4.2 g/dL (3.2-5.2); Albumin/Globulin Ratio 1.4 (1-3); BUN/Creatinine Ratio 17.4 (8-20); Calcium 9.3 mg/dL (8.6-10.3); EGFR African American 104.1 (>60); EGFR Non-African American 86.1 (>60); Globulin 3.1 g/dL (2-4); Total Bilirubin 0.4 mg/dL (0.2-1.0); Total Protein 7.3 g/dL (6.4-8.9)
[2019-01-22 13:34] VITALS: BP 135/108
== END 2019-01-22 13:33 | disposition home or self-care (01) ==
LOC: ED 10:28
DX: L03.115 Cellulitis of right lower limb (principal); R60.9 Edema, unspecified; I10 Essential (primary) hypertension
CPT/HCPCS: 36415; 80053; 81003; 83605; 84550; 85025; 85652; 86140; 87040; 96365; 96375; 96376; 99282; J1885; J2543

== ENCOUNTER 2019-10-10 10:00 | Inpatient (IN) | payer BC ==
--- NOTE | 2019-10-03 08:43 | HP ---
HISTORY AND PHYSICAL: DATE OF ADMISSION/SURGERY: 10/10/19 DATE OF OFFICE VISIT: 09/30/19 SURGEON: Kindra Li MD * (DICTATED BY WILDA ANTONIO) PROCEDURE: Right total knee arthroplasty. CHIEF COMPLAINT: Right knee pain. HISTORY OF PRESENT ILLNESS: Mr. Wolfe is a 54-year-old gentleman with severe endstage osteoarthritis of the right knee. He has failed conservative treatment and elected to proceed with a right total knee arthroplasty. PAST MEDICAL HISTORY: Depression, hypertension, anxiety. PAST SURGICAL HISTORY: Bilateral shoulder arthroscopies, right knee arthroscopy and hernia repair. CURRENT MEDICATIONS: 1. Multivitamin. 2. Glucosamine. 3. Glimepiride 75 mg a day. 4. Fish Oil. 5. Lisinopril 10 mg a day. 6. Clobetasol as needed. ALLERGIES: No known drug allergies. FAMILY HISTORY: Cancer, diabetes, aneurysm, and stroke. SOCIAL HISTORY: He is a 54-year-old gentleman, lives with his daughter. He does not smoke or use drugs. Uses alcohol rarely. REVIEW OF SYSTEMS: A complete 14 point review of systems is reviewed. The patient was all negative and noncontributory. He denies history of DVT, PE, hepatitis, HIV or anesthesia problems. PHYSICAL EXAMINATION GENERAL: He is well-developed, well nourished in no acute distress. VITAL SIGNS: He stands 69-1/2 inches tall, weighs 184 pounds. Blood pressure is 126/84, heart rate is 64. HEENT: Normocephalic, atraumatic. NECK: Supple. No palpable lymph nodes. PULMONARY: Lungs are clear to auscultation bilaterally. CARDIO: Regular rate and rhythm. Strong S1, S2. ABDOMEN: Soft, nontender, nondistended. NEUROLOGIC: He is alert and oriented x3. MUSCULOSKELETAL: Right lower extremity: Skin is intact. There is no open wounds or abrasions. There is a moderate effusion of the right knee joint, some tenderness along the medial joint line. There is a varus deformity of the knee. Range of motion is 15 to 125 degrees of flexion with significant patellofemoral crepitus. Positive Apley's and Irvin's. He is able to dorsiflex and plantarflex with a 2+ dorsalis pedis pulse and intact sensation. ASSESSMENT AND PLAN: Mr. Wolfe is a 54-year-old gentleman with severe end - stage osteoarthritis of the right knee. He has failed conservative treatment and elected to proceed with a right total knee arthroplasty. The surgery is scheduled for 10/10/[address] Li discussed the risks, and benefits of the surgery at today's visit and all of his questions were answered. He will follow up with Dr. Li in 2 weeks after the surgery. WILDA ANTONIO [id number]/[facility] #: [id number] MTDClaudia
[~2019-10-10 10:00] MED LIST: Acetaminophen TAB* 325 MG PO ONE; Buffered Lidocaine 1% SYRIN* 1 ML/SYRINGE INTRADERM ONE; Famotidine IV* 10 MG/ML 2 ML (20 mg) IV ONE; Gabapentin CAP(*) 300 MG PO ONE; Lactated Ringers 1000 ML Bag* 1,000 ML IV SCH; Tranexamic Acid 1,000 MG in NS 0.9% 50 ML* (outpatient use) IV SCH; celeCOXIB CAP* 100 MG PO ONE
[2019-10-10] MEDS ORDERED: ceFAZolin 2 GM PREMIX in ORs 2 GM/50 ML BAG ONE (12:52)
--- OUTSIDE RECORDS SUMMARY | 2019-10-10 13:20 | XMS REPORT | Continuity of Care Document ---
:1965 External Reference #:[id number] Author Name Kindra Li M.D. (transmitted by agent of provider Danette Ga) Address [address] [place] [id number] Care Team Providers Name Role Phone Petros White NP - Family Care Team Information Drilling Contractor [phone] Maximus Campo MD - Family Care Team Information Drilling Contractor [phone] Medicine Problems Active Problems Provider Date Cellulitis of right lower limb Kindra Li M.D. Onset: 01/23/2019 Prepatellar bursitis, right knee Kindra Li M.D. Onset: 01/23/2019 Localized, primary osteoarthritis Kindra Li M.D. Onset: 08/08/2016 Social History Type Date Description Comments Sex Unknown Tobacco Use Start: Unknown Patient is a current smoker, smokes every day Smoking Status Reviewed: 09/30/19 Patient is a current smoker, smokes every day Exercise Type/Frequency Does not exercise Allergies, Adverse Reactions, Alerts Description No Known Drug Allergies Medications Active Medications SIG Qnty Indications Ordering Provider Date Tramadol HCL 1 tablet by 30tabs M25.561 Kindra Li, 09/30/2019 50mg Tablets mouth every 12 M.D. hours as needed pain Multivitamin Unknown Glucosamine Unknown Clomipramine HCL Petros White, 75mg NPC Capsules Fish Oil 1 by mouth every Unknown 500mg Capsules day Lisinopril TK 1 T PO qd Unknown 10mg Tablets Clobetasol Propionate Apply A Small Unknown Amount To Both 0.05% Ointment Hands bid Medications Administered in Office Medication SIG Qnty Indications Ordering Provider Date Depomedrol 40MG Kindra Li M.D. 05/08/2019 Injection Jonnomedrol 40MG Kindra Li M.D. 02/01/2019 Injection Depomedrol 40MG Kindra Li M.D. 08/15/2016 Injection Depomedrol 80MG Kindra Li M.D. 12/08/2014 Injection Immunizations Description No Information Available Vital Signs Date Vital Result Comment 09/30/2019 7:58am Height 70 inches 5'10" Weight 184.00 lb Heart Rate 64 /min BP Systolic 126 mmHg BP Diastolic 84 mmHg Body Temperature 95.2 F Pain Level 2 BMI (Body Mass Index) 26.4 kg/m2 07/31/2019 11:07am Height 69.5 inches 5'9.50" Weight 175.00 lb Heart Rate 60 /min BP Systolic 144 mmHg BP Diastolic 90 mmHg Pain Level 4 BMI (Body Mass Index) 25.5 kg/m2 Results Description No Information Available Procedures Date Code Description Status 05/08/2019 67109 Inject/Drain Joint/Bursa Major W/O US Completed Medical Devices Description No Information Available Encounters Type Date Location Provider Dx Diagnosis Office Visit 07/31/2019 [facility] Kindra Li, M25.561 Pain in right 11:00a at [place] knee M17.11 Unilateral primary osteoarthritis, right knee M25.461 Effusion, right knee Assessments Date Code Description Provider 09/30/2019 M25.561 Pain in right knee Kindra Li M.D. 09/30/2019 M17.11 Unilateral primary osteoarthritis, right knee Kindra Li M.D. 09/30/2019 M25.461 Effusion, right knee Kindra Li M.D. 07/31/2019 M25.561 Pain in right knee Kindra Li M.D. 07/31/2019 M17.11 Unilateral primary osteoarthritis, right knee Kindra Li M.D. 07/31/2019 M25.461 Effusion, right knee Kindra Li M.D. 05/08/2019 M25.561 Pain in right knee Kindra Li M.D. 05/08/2019 M17.11 Unilateral primary osteoarthritis, right knee Kindra Li M.D. 05/08/2019 M25.461 Effusion, right knee Kindra Li M.D. Plan of Treatment Future Appointment(s):10/23/2019 10:00 am - Kindra Li M.D. at [facility] at Lvztke6210/10/2019 4:30 pm - Thad Weston PA-C at [facility] at Amvjok0210/10/2019 4:30 pm - WILDA Timmons at [facility] at Oojdbg0310/10/2019 4:30 pm - Kindra Li M.D. at [facility] at Fuuytx9709/30/2019 - Kindra Li M.D.M25.561 Pain in right kneeNew Medication:Tramadol HCL 50 mg - 1 tablet by mouth every 12 hours as needed painFollow up:Follow up: 2 weeks after wrkcjqhP99.11 Unilateral primary osteoarthritis, right kneeM25.461 Effusion, right knee Functional Status Description No Information Available Mental Status Description No Information Available Referrals Description No Information Available
[2019-10-10] MEDS ORDERED: celeCOXIB CAP* 100 MG ONE (13:56)
[2019-10-10] MEDS ORDERED: Acetaminophen TAB* 325 MG ONE (13:57)
[2019-10-10] MEDS ORDERED: Famotidine IV* 10 MG/ML 2 ML (20 mg) ONE (13:57)
[2019-10-10] MEDS ORDERED: Buffered Lidocaine 1% SYRIN* 1 ML/SYRINGE INTRADERM ONE (13:57)
[2019-10-10] MEDS ORDERED: Gabapentin CAP(*) 300 MG ONE (13:57)
[2019-10-10] MEDS ORDERED: Ondansetron INJ* 2 MG/ML VIAL ONE (14:03)
[2019-10-10] MEDS ORDERED: fentaNYL* 50 MCG/ML 2 ML VIAL (100 MCG VIAL) ONE (14:03)
[2019-10-10] MEDS ORDERED: Propofol* 10 MG/ML 20 ML BTL ONE ×2 (14:03→15:56)
[2019-10-10] MEDS ORDERED: Dexamethasone IV* 4 MG/ML 1 ML (4 MG) ONE (14:03)
[2019-10-10] MEDS ORDERED: Lidocaine 2% PF * 5 ML VIAL ONE (14:03)
[2019-10-10] MEDS ORDERED: KETAMINE HCL* 50 MG/ML 10 ML VIAL ONE (14:04)
[2019-10-10] MEDS ORDERED: Midazolam* 1 MG/ML 10 ML VIAL (10 MG) ONE (14:04)
[2019-10-10] MEDS ORDERED: ROPIVACAINE 5 MG/ML 30 ML BTL (0.5%) ONE ×2 (14:35→14:44)
[2019-10-10] MEDS ORDERED: Bupivacaine 0.5% SDV PF* 30ML VIAL ONE (14:45)
[2019-10-10] MEDS ORDERED: fentaNYL* 50 MCG/ML 2 ML VIAL (100 MCG VIAL) IV PRN (17:21)
[2019-10-10] MEDS ORDERED: Naloxone* 0.4 MG/ML 1 ML VIAL IV PRN (17:21)
[2019-10-10] MEDS ORDERED: Ondansetron INJ* 2 MG/ML VIAL IV PRN ×2 (17:21→17:59)
--- NOTE | 2019-10-10 17:39 | OP ---
Operative Report - Blank - Operative Report Date of Operation: 10/10/19 Note: EVON RENEE 1965 Date of Surgery: 10/10/19 Kindra Li MD Primary Care Physician: Chadwick ASTUDILLO did help throughout the procedure with preparation of the knee, wound retraction, manipulation of the knee, and wound closure. Anesthesiologist: Luly Burger MD Anesthesia Type: Spinal Preoperative Diagnosis: Right severe degenerative osteoarthritis of the knee Postoperative Diagnosis: As above Procedure Performed: Right Total Knee Arthroplasty Tourniquet time: 38 minutes Complications: None Specimen: Bone and cartilage from the right knee joint sent to pathology. Hardware Used: Cemented Barrera and Nephew total knee hardware was used - For the femur a size 7 right oxinium legion posterior stabilized femoral component, for the tibia a size 6 right mook II tibial baseplate, for the insert a size 9mm 5-6 posterior stabilized articular polyethylene insert, and for the patella a size 38 3-peg all poly patella. Brief History/Indication: EVON RENEE was known in clinic and had a history of severe right knee pain and swelling. He failed conservative treatment with anti-inflammatories, pain pills, intra-articular injections and physical therapy. He elected to undergo right total knee arthroplasty due to continued pain and decreased quality of life. Radiographs showed severe end stage osteoarthritis of the knee with bone on bone contact. Informed consent was obtained from the patient. He understood the risks of surgery included but were not limited to: bleeding, infection, damage to nearby structures, intraoperative fracture, nerve palsy, failure of the hardware, early loosening, knee stiffness or loss of motion, anesthesia complications, stroke, heart attack , blood clot and . He wished to proceed. Intra-Operative Findings: Intraoperatively the patient was noted to have severe loss of cartilage in all 3 compartments of the knee. Description of the Procedure: EVON RENEE was identified in the preanesthesia unit. His right knee was marked as the correct operative side. Informed consent was signed and placed in the chart. The patient was taken to the operating room and placed under anesthesia without complication. A choi catheter was placed. A tourniquet was placed on the right thigh. The right lower extremity was prepped and draped in the usual sterile fashion. Preoperative time-out was made to correctly identify the patient, side and site. Appropriate intraoperative antibiotics were given within one hour of incision. Tourniquet was inflated. A midline incision was made and carried sharply down to the extensor mechanism. A new 10 blade was used to make a standard medial parapatellar arthrotomy. The patella was subluxed laterally. Electrocautery was used to dissect soft tissue off the superomedial tibia to the midsagittal plane. The knee was flexed up. The anterior horn of the lateral meniscus and the ACL were sharply incised. A drill was used to enter the distal femur. The intramedullary distal femoral cutting guide was pinned on the distal femur. The oscillating saw was used to make the distal femoral cut. The external rotation guide was pinned on the distal femur and the distal femur was sized to a size 7. The size 7 multi-cutting jig was pinned on the distal femur. The oscillating saw was used to make the appropriate 4 chamfer cuts. Next the PCL was completely released. The extramedullary tibial cutting guide was pinned on the proximal tibia and the oscillating saw was used to make the proximal tibial cut perpendicular to the mechanical axis of the tibia. The bone was carefully removed. The knee was brought out into full extension. The spacer block was placed and had excellent fit with the knee in full extension. The medial and lateral ligaments were well balanced. The flexion and extension gaps were well balanced. The knee was flexed up. Lamina fireworks display specialist was placed both medially and laterally. Any remaining meniscus was removed with electrocautery. Curved osteotome was used to remove any posterior osteophytes. The tibial tray and drop denver were placed and confirmed a satisfactory tibial cut. The size 7 right femoral trial was impacted onto the distal femur. This trial had excellent fit and stability. The box for the posterior stabilized implant was prepared using a box cut osteotome and a reamer. Next a tibial tray trial and 9 mm insert trial was placed. The knee was taken through a range of motion and had full extension to 130 degrees of flexion. Patellofemoral tracking was satisfactory. The patella was inverted and sized to a size 38. Three peg holes were drilled through the size 38 drill guide. The trial patella was placed and the knee was taken through a range of motion. There was satisfactory patellofemoral tracking. All trials were removed. The tibia was subluxed anteriorly and sized to a size 6. The proximal tibial was prepared with a size 6 keel punch. All bony cut surfaces were irrigated with sterile saline and dried. Final implants were cemented into place starting with the tibia, followed by the femur, and last the patella. A 9 mm insert trial was placed and the knee was brought into full extension. Tourniquet was turned down and the knee was copiously irrigated with sterile saline. Electrocautery was used to obtain meticulous hemostasis. Once the cement had fully cured, the insert trial was removed. Any excess cement was removed from around the hardware and capsule. Final insert chosen was a 9 mm posterior stabilized Mook II articular insert size 5-6. Stability of the insert was checked and noted to be stable. The extensor mechanism was closed using number 1 vicryls. The rest of the incision was closed in a layered fashion using 0 and 2-0 vicryls. The skin was closed using 3-0 nylon suture. Sterile xeroform, 4x4s and webril were used to cover the incision. Hansel wrap and cold pack were used to cover the dressings. The patients anesthesia was reversed without difficulty. He was taken to the PACU in stable condition. Intended weight-bearing will be as tolerated.
[2019-10-10] MEDS ORDERED: Cyclobenzaprine TAB* 10 MG PO PRN (17:59)
[2019-10-10] MEDS ORDERED: diPHENhydraMINE PO* 25 MG PO PRN (17:59)
[2019-10-10] MEDS ORDERED: diPHENhydraMINE IV* 50 MG/ML 1 ml VIAL (BENADRYL) IV PRN (17:59)
[2019-10-10] MEDS ORDERED: Morphine INJ* 2 MG/ML 1 ML SYRINGE (TWO MG - NEW SYRINGE VERSION) IV PRN (17:59)
[2019-10-10] MEDS ORDERED: Magnesium Hydroxide LIQ* 30 ML UDC PO PRN (17:59)
[2019-10-10] MEDS ORDERED: oxyCODONE/Acetamin 5/325 MG* TAB PO PRN (17:59)
[2019-10-10] MEDS ORDERED: Ondansetron ODT TAB* 4 MG PO PRN (17:59)
[2019-10-10] MEDS: Lactated Ringers 1000 ML Bag* 1,000 ML IV SCH (20:03)
--- NOTE | 2019-10-10 21:12 | CONS ---
CONSULTATION REPORT: DATE OF CONSULT: 10/10/19. PROVIDER: WILDA Jaime. ATTENDING PHYSICIAN WHILE IN THE HOSPITAL: Dr. Sundar Ortiz (dictated by WILDA Jaime). REQUESTING PROVIDER: Dr. Kindra Li. REASON FOR CONSULT: Co-management of chronic medical conditions. HISTORY OF PRESENT ILLNESS: Vinicio Wolfe is a 54-year-old white male with past medical history significant for hypertension and depression/anxiety, who presents for elective right total knee arthroplasty with Dr. Li today. The patient has osteoarthritis of the right knee and has failed outpatient conservative management and elected to proceed for surgery today. The patient was evaluated in the PACU after surgery and he is feeling well. His spinal block is still in effect. He has no pain in his knees. He has yet to have gross motor control of his lower extremities. The patient denies abdominal pain , nausea, vomiting, chest pain, or difficulty breathing. PAST MEDICAL HISTORY: 1. Depression. 2. Anxiety. 3. Hypertension. 4. Osteoarthritis. PAST SURGICAL HISTORY: 1. Bilateral shoulder arthroscopies. 2. Right knee arthroscopy. 3. Hernia repair. HOME MEDICATIONS: 1. Multivitamin 1 tab p.o. daily. 2. Lisinopril 10 mg p.o. daily. 3. Glucosamine 1 tab p.o. daily. 4. Diclofenac gel 1 application topically b.i.d. 5. Clomipramine 75 mg p.o. daily. 6. Clobetasol 1 application topically b.i.d. p.r.n., rash. Of note, the history and physical written by the orthopedic team lists the patient is taking glimepiride and the patient does not take the medication and also does not have a history of diabetes. ALLERGIES: No known drug allergies. FAMILY HISTORY: Both of his parents have had colon cancer. This is how his mother . His father is still living and otherwise is healthy per patient. SOCIAL HISTORY: The patient lives with his daughter. He is a previous smoker. He quit smoking 2 months ago and had a smoking history of 40 years. He denies alcohol use and drug use. REVIEW OF SYSTEMS: An 11-point review of systems was completed and all pertinent positives and negatives are above in the HPI. All other systems are negative. PHYSICAL EXAM: Vitals: Temperature 97.0, pulse 75 beats per minute, respiratory rate 16 respirations per minute, oxygen saturation 96% on room air, blood pressure 122/81. General: Middle aged white male, who appears older than stated age, lying in hospital bed, appearing comfortable, in no acute distress. Eyes: PERRLA. Sclerae anicteric. ENT: Mucous apparently dry. Neck : Supple without JVD. Lungs: Clear to auscultation throughout. Cardio: Regular rate and rhythm without murmurs, rubs, or gallops. Abdomen: Soft, nontender, nondistended. Extremities: No clubbing, cyanosis, or edema. Neuro: The patient is unable to dorsiflex and plantar flex his bilateral feet consistent with recent spinal block for surgery with diminished sensation as well. The patient is alert and oriented x3. ASSESSMENT AND PLAN: Vinicio Wolfe is a 54-year-old white male with past medical history significant for depression, anxiety, and hypertension, who is admitted to the hospital for elective total knee arthroplasty with Dr. Li. Hospital Medicine has been consulted for co-management of chronic medical conditions. 1. Hypertension. The patient is normotensive now in the PACU. I will order his home lisinopril with holding parameters to hold for systolic blood pressure less than 120. 2. History of depression and anxiety. Continue the patient's home clomipramine. 3. Postoperative status management per Orthopedic Surgery. 4. DVT prophylaxis management per Orthopedic Surgery, though, it appears 2.5 mg p.o. b.i.d. Eliquis has been ordered, status post total knee arthroplasty. 5. Disposition per primary orthopedic team. TIME SPENT: Approximately 30 minutes was spent in consult, approximately half this time has been spent at the bedside evaluating the patient and discussing the plan of care. Thank you for allowing us to participate in the care of this patient. We will follow along while he is inpatient. WILDA JAIME [id number]/[facility] #: [id number] MTDD
[2019-10-10] MEDS: Lisinopril TAB* 10 MG PO SCH (21:41)
[2019-10-10] MEDS: Docusate CAP* 100 MG PO SCH (21:41)
[2019-10-10] MEDS: Magnesium Hydroxide LIQ* 30 ML UDC PO SCH (21:41)
[2019-10-10] MEDS: Clobetasol 0.05% OINT* 30 GM TUBE TOPICAL SCH (21:43)
[2019-10-10] MEDS: oxyCODONE TAB* 5 MG TAB PO PRN (21:48)
[2019-10-10] MEDS: CMCS: ClomiPRAMINE (NF) 25 MG CAP PO SCH (22:14)
[2019-10-10] MEDS: Acetaminophen TAB* 325 MG PO SCH (22:14)
[2019-10-10] MEDS: ceFAZolin 1 GM ADVAN(*) 1 GM in NS 0.9% 50 ML* 50 ML IVPB SCH (23:27)
[2019-10-11] MEDS: oxyCODONE/Acetamin 5/325 MG* TAB PO PRN ×4 (01:11→14:35)
[2019-10-11] MEDS: oxyCODONE TAB* 5 MG TAB PO PRN (04:10)
[2019-10-11] MEDS: Lactated Ringers 1000 ML Bag* 1,000 ML IV SCH (06:13)
[2019-10-11] MEDS: Acetaminophen TAB* 325 MG PO SCH ×2 (06:24→12:36)
[2019-10-11 06:38] LABS: Hematocrit 35 % (42-52); Hemoglobin 12.1 g/dL (14.0-18.0); Mean Platelet Volume 6.7 fL (7.4-10.4); Platelet Count 255 10^3/uL (150-450)
[2019-10-11 07:01] LABS: Calcium 8.7 mg/dL (8.6-10.3); EGFR African American 94.2 (>60); EGFR Non-African American 77.9 (>60); Potassium 4.8 mmol/L (3.5-5.0)
[2019-10-11] MEDS: ceFAZolin 1 GM ADVAN(*) 1 GM in NS 0.9% 50 ML* 50 ML IVPB SCH ×2 (07:48→15:14)
[2019-10-11] MEDS: Magnesium Hydroxide LIQ* 30 ML UDC PO SCH (07:49)
[2019-10-11] MEDS: Clobetasol 0.05% OINT* 30 GM TUBE TOPICAL SCH (07:49)
[2019-10-11] MEDS: Docusate CAP* 100 MG PO SCH (07:50)
[2019-10-11] MEDS ORDERED: Apixaban* 2.5 MG TAB PO SCH (09:00)
[2019-10-11] MEDS ORDERED: Vitamin THERAPEUTIC TAB PO SCH (09:00)
--- NOTE | 2019-10-11 11:57 | PN ---
Progress Note - Progress Note Date of Service: 10/11/19 SOAP: Subjective: [Pt was seen this am sitting up in chair . States that he is doing well. Denies any chest pain, SOB, nausea or vomiting. States that he is ready to go home. ] Objective: [Pt is alert and oriented x3. NAD MSK, RLE: dressing is c/d/i. Dressing changed. Incision is c/d/i. NVI distally. Calf is soft and non tender. +df/pf. 2+ DP pusle. Vital Signs Temp 98 F 10/11/19 08:02 Pulse 91 10/11/19 08:02 Resp 18 10/11/19 10:30 BP 127/90 10/11/19 08:02 Pulse Ox 93 10/11/19 08:02 Intake & Output 10/10/19 10/11/19 10/11/19 18:59 06:59 18:59 Intake Total 3170 360 Output Total 4125 550 Balance -955 -190 Weight 181 lb Intake: IV Fluids 980 LR 980 IVPB 50 ABX - CEFAZOLIN 50 Oral 2140 360 Output: Urine 550 Messer 4125 ] Assessment: [POD 1 RTKA ] Plan: [Continue with PT Eliquis bid x 30 days Percocet for pain relief DC home today ]
--- NOTE | 2019-10-11 13:15 | DS ---
Orthopedic Discharge Summary - Discharge Summary Date of Admission:10/10/19 Date of Discharge: 10/11/2019 Date of Surgery: 10/10/2019 Attending Orthopedic Provider: Dr. Li Pre-operative Diagnosis: Right knee osteoarthritis Operative Procedure: Right total knee arthroplasty Disposition of Patient: Home Condition of Patient: Good History: EVON RENEE is a 54 year old M with years of increasingly severe right knee pain. Patient has failed conservative management and has elected to undergo a right total knee replacement Hospital Course: EVON was admitted to [facility] on 10/10/19. Patient underwent a right total knee arthroplasty without complication followed by a brief recovery in PACU and transfer to the Short Stay Surgical Unit in stable condition. Our hospitalist service, physical therapy and occupational therapy also participated in this patients care. Post-op day 1: patient was alert and in no acute distress. Dressing was clean, dry and intact. Operative extremity dorsiflexion and plantarflexion intact, sensation intact to light touch distally, DP2+. Dressing was changed, incision was clean, dry and intact. Patient was deemed to be medically and orthopedically stable for discharge. Physical therapy goals were met. Home Medications Medication Instructions Recorded Confirmed Type Clobetasol 0.05% OINT* 1 applic TOPICAL BID PRN 01/22/19 10/10/19 History Clomipramine (NF) 75 mg PO QPM 09/30/19 10/10/19 History Diclofenac 1% GEL (NF) 1 applic TOPICAL BID 09/30/19 10/10/19 History Glucosamine Complex-MSM Cap 1 tab PO QPM 09/30/19 10/10/19 History Lisinopril TAB* 10 mg PO QPM 09/30/19 10/10/19 History Multiple Vitamins 1 tab PO QPM 09/30/19 10/10/19 History Apixaban* Eliquis* 2.5 mg PO BID tab 10/11/19 Rx oxyCODONE/Acetamin 5/325 MG* 1 tab PO Q4H PRN tab 10/11/19 Rx [Percocet 5/325 TAB*] oxyCODONE/Acetamin 5/325 MG* 2 tab PO Q4H PRN tab 10/11/19 Rx [Percocet 5/325 TAB*] Discharge Instructions following Orthopedic Surgery: Activity: * Weight Bearing as tolerated * Continue physical therapy and occupational therapy exercises as shown Wound care: * OK to shower on post-op day 3, no bathing, swimming, or submerging wound. * Use gentle soap, pat dry. Cover with gauze, NEHEMIAS wrap or tape. * Visiting home nurse to do wound checks. Call Orthopedic office for: * Increased drainage * Redness * Increased pain * Fever Go to ER with shortness of breath or chest pain. Diet: * Regular diet * Increase fluids and fiber to prevent constipation. * Continue to use stool softeners, call office if no bowel motion within 48 hours. Medications See Home Medication List in your packet for medications that you should take after discharge. DVT Prophylaxis: Eliquis Dosin.5 mg, 1 tab every 12 hours x 30 days Pain Control: Percocet Dosin/325 mg 1-2 tabs by mouth every 4-6 hours as needed for pain. Maximum of 10 tabs per day. Please note that Percocet contains Tylenol (acetaminophen). Maximum daily dose of Tylenol is 4000 mg from all sources. Antibiotics are required prior to any dental work. FOLLOW UP: Follow up with [Guillermo] Within 10-14 days, call for appointment Please call our office with any questions or concerns ([phone])
[2019-10-11 15:37] VITALS: BP 105/58
[2019-10-11] MEDS ORDERED: MULTIPLE VITAMINS PO SCH (18:00)
[2019-10-11] MEDS ORDERED: [UNRECOGNIZED DRUG - OTHER] PO SCH (18:00)
[2019-10-11] MEDS: CMCS: ClomiPRAMINE (NF) 25 MG CAP PO SCH (18:21)
[2019-10-11] MEDS: Lisinopril TAB* 10 MG PO SCH (18:21)
== END 2019-10-11 18:33 | disposition home health service (06) | DRG 302 ==
LOC: AA 13:16 → SSU 17:59
PROVIDERS: ADMIT Orthopaedic Surgery Adult Reconstructive Orthopaedic Surgery; ATTEND Orthopaedic Surgery Adult Reconstructive Orthopaedic Surgery
PROC: 0SRC069 Replacement of Right Knee Joint with Oxidized Zirconium on Polyethylene Synthetic Substitute, Cemented, Open Approach (ICD-10-PCS; principal; 2019-10-10 16:00)
DX: M17.11 Unilateral primary osteoarthritis, right knee (principal); I10 Essential (primary) hypertension; F32.9 Major depressive disorder, single episode, unspecified; F41.9 Anxiety disorder, unspecified; M25.761 Osteophyte, right knee; M25.461 Effusion, right knee; M21.161 Varus deformity, not elsewhere classified, right knee; Z79.899 Other long term (current) drug therapy; Z87.891 Personal history of nicotine dependence
CPT/HCPCS: 36415; 71046; 80048; 85014; 85018; 85049; A9270-GY; J0690; J1100; J2250; J2405; J2704; J2795; J3010; J3490

== ENCOUNTER 2021-09-05 08:38 | Observation (INO) ==
[2021-09-05] MEDS ORDERED: Lidocaine PATCH 5% PATCH TRANSDERM ONE (09:34)
[2021-09-05] MEDS ORDERED: Lactated Ringers 1000 ml BAG 1,000 ML IV ONE (09:34)
[2021-09-05] MEDS ORDERED: Acetaminophen IV 1 GM/100ML 100 ML IV ONE (09:36)
[2021-09-05 09:51] LABS: ABS Eosinophils 0.1 10^3/ul (0-0.6); ABS Lymphocytes 0.8 10^3/ul (1.0-4.8); ABS Monocytes 0.8 10^3/ul (0-0.8); Eosinophil % 0.6 %; Hematocrit 37 % (42-52); Lymphocyte % 6.7 %; Mean Corpuscular HGB Conc 35 g/dL (31-36); Mean Corpuscular Hemoglobin 31 pg (27-31); Mean Corpuscular Volume 90 fL (80-94); Mean Platelet Volume 6.4 fL (7.4-10.4); Platelet Count 305 10^3/uL (150-450); Red Blood Count 4.13 10^6 /uL (4.18-5.48); Red Cell Distribution Width 14 % (10-15); White Blood Count 11.7 10^3/uL (3.5-10.8)
[2021-09-05 10:05] LABS: INR 1.06 (0.86-1.15)
[2021-09-05 10:07] LABS: Albumin/Globulin Ratio 1.4 (1-3); Globulin 2.9 g/dL (2-4); Magnesium 1.8 mg/dL (1.9-2.7); Potassium 4.7 mmol/L (3.5-5.0); Total Bilirubin 0.4 mg/dL (0.2-1.0); Total Protein 6.9 g/dL (6.4-8.9); eGFR CKD-EPI 87.3 (>60)
[2021-09-05] MEDS ORDERED: Iohexol 300 (CONTRAST) 10 ML SDV IV ONE (10:29)
[2021-09-05 11:52] LABS: Osmolality Serum 265 mOsm/kg (275-295)
[2021-09-05 11:55] LABS: Urine Appearance Clear; Urine Bilirubin Negative (Negative); Urine Blood Negative (Negative); Urine Color Yellow; Urine Glucose Negative (Negative); Urine Ketones Trace (Negative); Urine Nitrite Negative (Negative); Urine Protein Negative (Negative); Urine Specific Gravity 1.018 (1.002-1.030); Urine Urobilinogen Negative (Negative)
[2021-09-05 12:47] LABS: Urine Creatinine Concentration 16.67 mg/dL
[2021-09-05 13:26] LABS: Urine Osmo 207 mOsm/kg (150-1150)
[2021-09-05] MEDS ORDERED: NS 0.9% 1000 ml BAG 1,000 ML IV SCH (16:00)
[2021-09-05 16:23] LABS: TSH Ultra Thyroid Stim Horm 2.33 mcIU/mL (0.34-5.60)
[2021-09-05 17:56] LABS: ABS Eosinophils 0.2 10^3/ul (0-0.6); ABS Lymphocytes 0.9 10^3/ul (1.0-4.8); ABS Monocytes 0.7 10^3/ul (0-0.8); ABS Neutrophils 6.7 10^3/ul (1.5-7.7); Eosinophil % 2.3 %; Hematocrit 37 % (42-52); Hemoglobin 12.8 g/dL (14.0-18.0); Lymphocyte % 10.8 %; Mean Corpuscular HGB Conc 34 g/dL (31-36); Mean Corpuscular Hemoglobin 31 pg (27-31); Mean Corpuscular Volume 90 fL (80-94); Mean Platelet Volume 6.1 fL (7.4-10.4); Platelet Count 262 10^3/uL (150-450); Red Blood Count 4.14 10^6 /uL (4.18-5.48); Red Cell Distribution Width 14 % (10-15); White Blood Count 8.6 10^3/uL (3.5-10.8)
[2021-09-05 18:15] LABS: Calcium 9.2 mg/dL (8.6-10.3); eGFR CKD-EPI 104.3 (>60)
[2021-09-05] MEDS ORDERED: CLOMIPRAMINE 25 MG PO SCH (21:00)
[2021-09-05] MEDS ORDERED: Lidocaine Patch REMOVE NOTE PATCH OFF SCH (21:00)
[2021-09-06 06:05] LABS: ABS Eosinophils 0.2 10^3/ul (0-0.6); ABS Lymphocytes 0.7 10^3/ul (1.0-4.8); ABS Monocytes 0.6 10^3/ul (0-0.8); ABS Neutrophils 4.7 10^3/ul (1.5-7.7); Eosinophil % 3.3 %; Hematocrit 39 % (42-52); Hemoglobin 13.1 g/dL (14.0-18.0); Lymphocyte % 10.7 %; Mean Corpuscular HGB Conc 34 g/dL (31-36); Mean Corpuscular Hemoglobin 30 pg (27-31); Mean Corpuscular Volume 90 fL (80-94); Mean Platelet Volume 6.4 fL (7.4-10.4); Platelet Count 245 10^3/uL (150-450); Red Blood Count 4.29 10^6 /uL (4.18-5.48); Red Cell Distribution Width 14 % (10-15); White Blood Count 6.2 10^3/uL (3.5-10.8)
[2021-09-06 06:35] LABS: Calcium 8.8 mg/dL (8.6-10.3); Potassium 3.8 mmol/L (3.5-5.0); eGFR CKD-EPI 107.2 (>60)
[2021-09-06] MEDS ORDERED: CMC:Minocycline 50 mg CAP (NF) PO SCH (09:00)
[2021-09-06] MEDS ORDERED: CLOMIPRAMINE 25 MG PO SCH (09:00)
[2021-09-06 13:54] VITALS: BP 147/85
[2021-09-08 23:48] LABS: Clomipramine 66 ng/mL; Clomipramine & Norclomipramine 310 ng/mL (230-450)
== END 2021-09-06 16:40 | disposition home or self-care (01) ==
LOC: EDHOLD 08:38 → ED 08:38 → MED 23:30
PROVIDERS: ADMIT Internal Medicine; ATTEND Internal Medicine

== ENCOUNTER 2021-12-14 13:01 | Inpatient (IN) ==
[2021-12-14] MEDS ORDERED: Lactated Ringers 1000 ml BAG 1,000 ML IV ONE ×2 (13:20)
[2021-12-14 13:40] LABS: ABS Lymphocytes 0.3 10^3/ul (1.0-4.8); ABS Monocytes 0.9 10^3/ul (0-0.8); ABS Neutrophils 14.5 10^3/ul (1.5-7.7); Hematocrit 31 % (42-52); Lymphocyte % 1.9 %; Mean Corpuscular HGB Conc 33 g/dL (31-36); Mean Corpuscular Hemoglobin 27 pg (27-31); Mean Corpuscular Volume 83 fL (80-94); Mean Platelet Volume 6.1 fL (7.4-10.4); Platelet Count 190 10^3/uL (150-450); Red Blood Count 3.67 10^6 /uL (4.18-5.48); Red Cell Distribution Width 16 % (10-15); White Blood Count 15.7 10^3/uL (3.5-10.8)
[2021-12-14] MEDS ORDERED: Piperacillin/Tazobac ADVAN 3.375 GM in NS 0.9% 100 ml BAG 100 ML IV ONE (13:43)
[2021-12-14 13:54] LABS: Activated Partial Thrombo Time 29.7 seconds (26.0-38.0); INR 1.25 (0.86-1.15)
[2021-12-14] MEDS ORDERED: Vancomycin 1,500 MG in NS 0.9% 250 ml 250 ML IVPB ONE (14:00)
[2021-12-14 14:16] LABS: ALT 27 U/L (7-52); AST 23 U/L (13-39); Albumin 3.2 g/dL (3.2-5.2); Albumin/Globulin Ratio 1.2 (1-3); Alkaline Phosphatase 121 U/L (35-149); Anion Gap 9 mmol/L (2-11); Blood Urea Nitrogen 16 mg/dL (6-24); C Reactive Protein 361.01 mg/L (<8.01); CO2 Carbon Dioxide 24 mmol/L (22-32); Calcium 8.5 mg/dL (8.6-10.3); Chloride 91 mmol/L (101-111); Globulin 2.6 g/dL (2-4); Glucose 150 mg/dL (70-100); Potassium 4.1 mmol/L (3.5-5.0); Sodium 124 mmol/L (135-145); Total Protein 5.8 g/dL (6.4-8.9); eGFR CKD-EPI 80.5 (>60)
[2021-12-14 15:31] LABS: Urine Appearance Clear; Urine Bilirubin Negative (Negative); Urine Blood Negative (Negative); Urine Color Yellow; Urine Glucose Negative (Negative); Urine Ketones Negative (Negative); Urine Nitrite Negative (Negative); Urine Protein 1+(30 mg/dL) (Negative); Urine Specific Gravity 1.011 (1.002-1.030); Urine Urobilinogen Negative (Negative)
[2021-12-14 15:34] LABS: Urine Bacteria Absent (Absent); Urine Red Blood Cell Trace(0-2/hpf) (Absent); Urine Squamous Epithelial Cell Present (Absent); Urine White Blood Cell Trace(0-5/hpf) (Absent)
[2021-12-14] MEDS ORDERED: oxyCODONE/Acetamin 5/325 mg TAB PO PRN (19:18)
[2021-12-14] MEDS ORDERED: Albuterol HFA INHALER 8 gm MDI INH PRN (19:18)
[2021-12-14 20:12] LABS: Total Iron Binding Capacity 228 mcg/dL (250-450); Transferrin 163 mg/dL (203-362)
[2021-12-14 20:13] LABS: % Iron Saturation 9 % (15-55); Iron < 20 ug/dL (50-212); Unsaturated Iron Binding 208 ug/dL
[2021-12-14 20:32] LABS: Ferritin 269.1 ng/mL (24-336)
[2021-12-14] MEDS ORDERED: ZOSYN 3.375 GM x ONE DOSE over 30 miuntes IV (21:00)
[2021-12-14] MEDS ORDERED: Zosyn per Pharmacy NOTE FOLLOW UP SCH (21:00)
[2021-12-14] MEDS ORDERED: Iohexol 300 (CONTRAST) 10 ML SDV IV ONE (21:08)
[2021-12-14] MEDS: Heparin 5000 UNITS/ML 1 mL VIAL SUBCUT SCH (22:17)
[2021-12-14] MEDS: CMCS: ClomiPRAMINE 25 mg TAB (NF) PO SCH (22:20)
[2021-12-14 23:01] LABS: Osmolality Serum 263 mOsm/kg (275-295)
[2021-12-14 23:15] LABS: Folate > 20.00 ng/mL (5.90-24.80)
[2021-12-15] MEDS ORDERED: NS 0.9% 500 ml BAG 500 ML IV ONE (00:49)
[2021-12-15] MEDS: ZOSYN 3.375 GM Q8H per EXTENDED INFUSION IV SCH ×3 (02:12→17:58)
[2021-12-15 03:40] LABS: Vitamin B12 321 pg/mL (180-914)
[2021-12-15] MEDS: Heparin 5000 UNITS/ML 1 mL VIAL SUBCUT SCH (06:39)
[2021-12-15 07:21] LABS: ABS Lymphocytes 0.5 10^3/ul (1.0-4.8); ABS Monocytes 1.2 10^3/ul (0-0.8); ABS Neutrophils 14.1 10^3/ul (1.5-7.7); Eosinophil % 0.2 %; Hematocrit 27 % (42-52); Hemoglobin 8.8 g/dL (14.0-18.0); Mean Corpuscular HGB Conc 33 g/dL (31-36); Mean Corpuscular Hemoglobin 28 pg (27-31); Mean Corpuscular Volume 84 fL (80-94); Mean Platelet Volume 6.5 fL (7.4-10.4); Platelet Count 174 10^3/uL (150-450); Red Blood Count 3.16 10^6 /uL (4.18-5.48); Red Cell Distribution Width 16 % (10-15); White Blood Count 15.9 10^3/uL (3.5-10.8)
[2021-12-15] MEDS: Tiotropium Brom/Olodaterol MDI INH SCH (07:25)
[2021-12-15 07:43] LABS: C Reactive Protein 312.33 mg/L (<8.01); Calcium 8.1 mg/dL (8.6-10.3); Potassium 3.8 mmol/L (3.5-5.0); eGFR CKD-EPI 98.9 (>60)
[2021-12-15] MEDS ORDERED: Vancomycin per Pharmacy 1 EA NOTE FOLLOW UP SCH (09:00)
[2021-12-15] MEDS ORDERED: Vancomycin 1,250 MG in NS 0.9% 250 ml 250 ML IVPB ONE (09:30)
[2021-12-15] MEDS: Aspirin EC 81 mg TAB.EC (enteric coated) PO SCH (09:49)
[2021-12-15] MEDS: CMCS: ClomiPRAMINE 25 mg TAB (NF) PO SCH ×2 (10:22→20:42)
[2021-12-15] MEDS ORDERED: Lactated Ringers 1000 ml BAG 1,000 ML IV SCH (12:00)
[2021-12-15] MEDS: Enoxaparin 40 MG/0.4 ML SYR SUBCUT SCH (18:00)
[2021-12-15 22:06] LABS: Urine Osmo 195 mOsm/kg (150-1150)
[2021-12-16] MEDS: Vancomycin 1,250 MG in NS 0.9% 250 ml 250 ML IVPB SCH ×3 (00:23→21:27)
[2021-12-16 01:09] LABS: Hematocrit 27 % (42-52); Hemoglobin 8.9 g/dL (14.0-18.0)
[2021-12-16] MEDS: ZOSYN 3.375 GM Q8H per EXTENDED INFUSION IV SCH ×3 (02:31→18:30)
[2021-12-16 06:55] LABS: ABS Eosinophils 0.1 10^3/ul (0-0.6); ABS Lymphocytes 0.4 10^3/ul (1.0-4.8); ABS Monocytes 0.8 10^3/ul (0-0.8); ABS Neutrophils 10.2 10^3/ul (1.5-7.7); Calcium 7.7 mg/dL (8.6-10.3); Eosinophil % 0.7 %; Hematocrit 25 % (42-52); Hemoglobin 8.3 g/dL (14.0-18.0); Lymphocyte % 3.5 %; Magnesium 1.8 mg/dL (1.9-2.7); Mean Corpuscular HGB Conc 34 g/dL (31-36); Mean Corpuscular Hemoglobin 28 pg (27-31); Mean Corpuscular Volume 83 fL (80-94); Mean Platelet Volume 6.4 fL (7.4-10.4); Platelet Count 185 10^3/uL (150-450); Potassium 3.2 mmol/L (3.5-5.0); Red Blood Count 2.99 10^6 /uL (4.18-5.48); Red Cell Distribution Width 16 % (10-15); White Blood Count 11.6 10^3/uL (3.5-10.8); eGFR CKD-EPI 105.5 (>60)
[2021-12-16] MEDS ORDERED: Magnesium Sulfate IV 3 GM in NS 0.9% 100 ml BAG 100 ML IVPB ONE (07:10)
[2021-12-16] MEDS: CMCS: ClomiPRAMINE 25 mg TAB (NF) PO SCH ×2 (07:51→21:25)
[2021-12-16] MEDS: Aspirin EC 81 mg TAB.EC (enteric coated) PO SCH (07:52)
[2021-12-16] MEDS: Magnesium Sulfate 1 GM IV 1 GM/100 ML BAG IV ONE ×2 (07:52→09:09)
[2021-12-16] MEDS ORDERED: Magnesium Sulfate 2 GM IV (Premix) IVPB ONE (08:00)
[2021-12-16] MEDS ORDERED: Flu vaccine *QUAD* 2021-22* 0.5 ML SYRINGE IM ONE (09:00)
[2021-12-16] MEDS ORDERED: Pneumococcal Vac 23-Polyvalent IM ONE (09:00)
[2021-12-16] MEDS: Tiotropium Brom/Olodaterol MDI INH SCH (12:03)
[2021-12-16 15:34] LABS: Hematocrit 27 % (42-52)
[2021-12-16] MEDS: Enoxaparin 40 MG/0.4 ML SYR SUBCUT SCH (18:59)
[2021-12-17] MEDS: ZOSYN 3.375 GM Q8H per EXTENDED INFUSION IV SCH ×2 (03:07→10:39)
[2021-12-17 06:12] LABS: ABS Eosinophils 0.2 10^3/ul (0-0.6); ABS Lymphocytes 0.7 10^3/ul (1.0-4.8); ABS Monocytes 1.2 10^3/ul (0-0.8); ABS Neutrophils 9.2 10^3/ul (1.5-7.7); Eosinophil % 1.5 %; Hematocrit 28 % (42-52); Hemoglobin 9.3 g/dL (14.0-18.0); Lymphocyte % 6.1 %; Mean Corpuscular HGB Conc 33 g/dL (31-36); Mean Corpuscular Hemoglobin 28 pg (27-31); Mean Corpuscular Volume 83 fL (80-94); Mean Platelet Volume 6.5 fL (7.4-10.4); Platelet Count 258 10^3/uL (150-450); Red Blood Count 3.38 10^6 /uL (4.18-5.48); Red Cell Distribution Width 17 % (10-15); White Blood Count 11.2 10^3/uL (3.5-10.8)
[2021-12-17 06:46] LABS: Calcium 8.2 mg/dL (8.6-10.3); Magnesium 2.2 mg/dL (1.9-2.7); Potassium 3.5 mmol/L (3.5-5.0); eGFR CKD-EPI 104.7 (>60)
[2021-12-17] MEDS: Aspirin EC 81 mg TAB.EC (enteric coated) PO SCH (08:19)
[2021-12-17] MEDS: CMCS: ClomiPRAMINE 25 mg TAB (NF) PO SCH (08:20)
[2021-12-17] MEDS: Tiotropium Brom/Olodaterol MDI INH SCH (08:43)
[2021-12-17] MEDS ORDERED: Vancomycin Trough Check NOTE FOLLOW UP ONE (09:30)
[2021-12-17 11:34] LABS: Vancomycin Trough 3.9 mcg/mL
[2021-12-17] MEDS: Vancomycin 1,250 MG in NS 0.9% 250 ml 250 ML IVPB SCH (12:27)
[2021-12-17 13:43] VITALS: BP 110/73
== END 2021-12-17 16:15 | disposition home or self-care (01) | DRG 206 ==
LOC: ED 13:01 → SUATTDRO 19:12 → EDHOLD 19:12 → MEDTELE 20:37
PROVIDERS: ADMIT Internal Medicine; ATTEND Hospitalist

== ENCOUNTER 2024-07-17 07:29 | Observation (INO) ==
[2024-07-17 10:15] LABS: ABS Eosinophils 0.2 10^3/uL (0.0-0.5); ABS Lymphocytes 1.2 10^3/uL (1.0-4.8); ABS Monocytes 0.6 10^3/uL (0.0-1.1); ABS Neutrophils 5.5 10^3/uL (1.5-7.6); Eosinophil % 2.7 %; Hemoglobin 13.7 g/dL (13.2-16.3); Lymphocyte % 15.4 %; Mean Corpuscular Hemoglobin 29.3 pg (27-33); Mean Corpuscular Hgb Conc 33.3 g/dL (31-36); Mean Corpuscular Volume 87.9 fL (80-97); Mean Platelet Volume 6.8 fL (7.5-11.2); Platelet Count 285 10^3/uL (150-450); Red Blood Count 4.66 10^6/uL (4.06-5.63); Red Cell Distribution Width 15.2 % (12-17); White Blood Count 7.5 10^3/uL (3.6-10.2)
[2024-07-17] MEDS ORDERED: Albuterol HFA INHALER 8 gm MDI INH PRN (11:24)
[2024-07-17] MEDS ORDERED: Fluticasone NASAL SPRAY 50MCG 16 gm SPRAY BTL INTRANASAL PRN (11:24)
[2024-07-17 11:28] LABS: Potassium 4.1 mmol/L (3.5-5.0)
[2024-07-17 11:29] LABS: Calcium 9.3 mg/dL (8.6-10.3); Creatinine, Serum 0.88 mg/dL (0.67-1.17); eGFR CKD-EPI 99.7 (>60)
[2024-07-17 11:41] LABS: High Sensitivity Troponin 1 Hr 5 pg/mL (<20)
[2024-07-17] MEDS ORDERED: Tiotropium Brom/Olodaterol MDI (ACUTE) INH PRN (11:45)
[2024-07-17 14:55] VITALS: BP 151/83
[2024-07-17] MEDS ORDERED: Enoxaparin 40 MG/0.4 ML SYR SUBCUT SCH (21:00)
[2024-07-18] MEDS ORDERED: Aspirin EC 81 mg TAB.EC (enteric coated) PO SCH (09:00)
[2024-07-18] MEDS ORDERED: Nitroglycerin 0.2 mg/hr PATCH (5 mg) TRANSDERM SCH (09:00)
== END 2024-07-17 16:30 | disposition home or self-care (01) ==
LOC: ED 07:29 → EDHOLD 07:29 → MEDTELE 13:53
PROVIDERS: ADMIT Internal Medicine; ATTEND Internal Medicine